=== PATIENT | female | born 1960 | race Caucasian/White ===

== ENCOUNTER → 2017-12-08 08:00 | Outpatient (CLI) | payer OTHER, SELFPAY | PROVIDERS: Family Provider Physician Assistant; PCP Physician Assistant | DX: Z23 Encounter for immunization (principal) | CPT/HCPCS: 90471; 90686 ==

== ENCOUNTER → 2018-12-28 11:13 | Outpatient (CLI) | payer OTHER, SELFPAY | PROVIDERS: PCP Physician Assistant | DX: Z23 Encounter for immunization (principal) | CPT/HCPCS: 90471; 90686 ==

== ENCOUNTER → 2019-03-01 09:16 | Outpatient (CLI) | payer OTHER, SELFPAY ==
--- NOTE | 2019-03-01 | DI.MG.S_ITS ---
BILATERAL DIGITAL SCREENING MAMMOGRAM 3D/2D WITH CAD: 03/01/2019 CLINICAL: Routine screening. Comparison is made to exams dated: 08/31/2014 mammogram and 09/10/2012 mammogram - [facility]. There are scattered fibroglandular elements in both breasts. Current study was also evaluated with a Computer Aided Detection (CAD) system. No significant masses, calcifications, or other findings are seen in either breast. There has been no significant interval change. IMPRESSION: NEGATIVE There is no mammographic evidence of malignancy. A 1 year screening mammogram is recommended. This exam was interpreted at Station ID: [id number]. NOTE: For mammograms, a report in lay terms will be sent to the patient. Approximately 15% of breast malignancies will not be visualized mammographically. In the management of a palpable breast mass, a negative mammogram must not discourage biopsy of a clinically suspicious lesion. Electronically Signed By: Matias beard/dilip:03/01/2019 17:12:24 letter sent: Normal Exam ACR BI-RADS Category 1: Negative [id number]
== END ==
PROVIDERS: PCP Physician Assistant; Visit Provider Physician Assistant
DX: Z12.31 Encounter for screening mammogram for malignant neoplasm of breast (principal)
CPT/HCPCS: 77063; 77067

== ENCOUNTER 2019-05-06 10:35 | Emergency (ER) | payer OTHER, SELFPAY ==
[2019-05-06 10:40] VITALS: BP 167/69; PULSE 66; RESP 13; TEMP 36.6; O2SAT 99
--- NOTE | 2019-05-06 10:48 | DI.RAD.S_ITS ---
PROCEDURE: XR KNEE LT 3V INDICATIONS: pain in left knee TECHNIQUE: 3 views of the knee were acquired. COMPARISON: [facility], , KNEE 3V RIGHT, 08/24/2012, 12:13. FINDINGS: Bones: No fractures or dislocations. No suspicious bony lesions. Mild degenerative changes of the knee are present. Soft tissues: No joint effusion. No suspicious soft tissue calcifications. IMPRESSION: No acute osseous abnormality of the left knee. Dictated by: Timothy Hudson M.D. on 05/06/2019 at 10:37 Approved by: Timothy Hudson M.D. on 05/06/2019 at 10:38
--- NOTE | 2019-05-06 10:59 | ED.LOWEXIN ---
HPI - Extremity Injury (Lower) <JAGRUTI Casey - Last Filed: 05/06/19 22:07> General Chief Complaint: Extremity Injury, Lower Stated Complaint: pain in knee Time Seen by Provider: 05/06/19 10:54 History of Present Illness HPI Narrative: 59yo male presents to the emergency department complaining of left knee pain for the past few days. Patient states 2 weeks ago she felt like her leg was falling asleep, she has had this happen before but it often resolves. This feeling also resolved but then she developed left knee pain. Yesterday she noticed it increased when she walked on her leg. Today the pain was worse yet and she felt a pop. Patient states she has a dull aching 7/10 pain that is located in the back of her knee that is worse with movement and weight-bearing at this time. She has taken Excedrin migraine earlier today. She denies any history of trauma to the area or previous surgeries. Patient denies any history of blood clots, calf pain, shortness of breath, chest pain, nausea, vomiting, diarrhea, or other concerns. Related Data Home Medications Medication Instructions Recorded Confirmed Calcium 500 + D 1 tab PO DAILY #0 12/25/10 05/06/19 meloxicam [Mobic] 15 mg PO QPM #0 12/25/10 05/06/19 propranolol 40 mg PO BID #0 12/25/10 05/06/19 selenium sulfide [Tersi Foam] 1 applic TOPICAL DIRECTED #0 12/25/10 05/06/19 sumatriptan succinate [Imitrex] 50 mg PO PRN PRN #0 12/25/10 05/06/19 nystatin 1 applic TOPICAL DIRECTED 05/06/19 05/06/19 pantoprazole 20 mg PO DAILY 05/06/19 05/06/19 simvastatin 20 mg PO DAILY 05/06/19 05/06/19 Allergies Allergy/AdvReac Type Severity Reaction Status Date / Time morphine Allergy Unknown GLOBAL Verified 03/01/19 09:32 ITCHING Review of Systems <JAGRUTI Casey - Last Filed: 05/06/19 22:07> Review of Systems Narrative: REVIEW OF SYSTEMS: GENERAL: Denies fever or chills. HENT: No head trauma. EYES: No double vision or vision loss. CARDIOVASCULAR: No chest pain or syncope. RESPIRATORY: No shortness of breath or cough. GASTROINTESTINAL: No nausea, vomiting, diarrhea, or constipation. MUSCULOSKELETAL: Complains of left knee pain, see HPI. INTEGUMENTARY: No rash, lesions, or pruritus. NEURO: No numbness, tingling at this time. PSYCH: No behavior or mood changes. Patient History <JAGRUTI Casey - Last Filed: 05/06/19 22:07> Medical History No pertinent past medical history (Acute) Social History Smoking Status: Never smoker Smoking Status: Never smoker Exam <JAGRUTI Casey - Last Filed: 05/06/19 22:07> Initial Vital Signs Initial Vital Signs: Vital Signs Temperature 97.8 F 05/06/19 10:40 Pulse Rate 66 05/06/19 10:40 Respiratory Rate 13 05/06/19 10:40 Blood Pressure 167/69 H 05/06/19 10:40 Pulse Oximetry 99 05/06/19 10:40 PHYSICAL EXAMINATION: GENERAL: Well groomed, alert, and cooperative. Answers questions promptly and appropriately. Vital signs noted. HENT: Normocephalic, atraumatic. EYES: Symmetrical, sclera white, no periorbital swelling. CARDIOVASCULAR: S1 and S2 sounds normal. Regular rate and rhythm, no murmurs, clicks, or bruits. No pedal edema. RESPIRATORY: Normal respiratory rate, trachea midline, airway patent. No stridor, nasal flaring or accessory muscle use. Lungs are clear in all linder. MUSCULOSKELETAL: Minute amount of swelling noted to lower aspect of left knee, no ecchymosis or erythema. Decreased flexion due to pain, full extension. Pain with medial and lateral Naren sign. Negative drawer test. Equal tone and mass bilaterally. EXTREMITIES: CMS intact. Pedal pulses 2+ intact bilaterally. SKIN: Warm, dry, soft, appropriate color for ethnicity. No lesions, rashes, or wounds. NEURO: Alert and Oriented X 3. No sensory deficits. PSYCH: Appropriate affect and mood. <Suzanne Jasso DO - Last Filed: 05/08/19 09:23> Initial Vital Signs Initial Vital Signs: Vital Signs Temperature 97.8 F 05/06/19 10:40 Pulse Rate 66 05/06/19 10:40 Respiratory Rate 13 05/06/19 10:40 Blood Pressure 167/69 H 05/06/19 10:40 Pulse Oximetry 99 05/06/19 10:40 Course <JAGRUTI Casey - Last Filed: 05/06/19 22:07> Course Course Narrative: Patient was given Toradol in the emergency department which decreased pain. She was also given a straight knee immobilizer and crutches to help with knee pain and stabilization. Orders Ordered: Discontinued Medications Ketorolac Tromethamine (Toradol) 30 mg IM NOW ONE Stop: 05/06/19 11:09 Last Admin: 05/06/19 11:27 Dose: 30 mg Documented by: TEODORO Vital Signs Vital signs: Vital Signs - 8 hr 05/06/19 10:40 Temperature 97.8 F Pulse Rate 66 Respiratory Rate 13 Blood Pressure 167/69 H Pulse Oximetry 99 <Suzanne Jasso DO - Last Filed: 05/08/19 09:23> Orders Ordered: Discontinued Medications Ketorolac Tromethamine (Toradol) 30 mg IM NOW ONE Stop: 05/06/19 11:09 Last Admin: 05/06/19 11:27 Dose: 30 mg Documented by: TEODORO Vital Signs Vital signs: Vital Signs - 8 hr 05/06/19 10:40 Temperature 97.8 F Pulse Rate 66 Respiratory Rate 13 Blood Pressure 167/69 H Pulse Oximetry 99 MDM - Extremity Injury (Lower) <JAGRUTI Casey - Last Filed: 05/06/19 22:07> Medical Records Attestation: I reviewed the patient's medical records. Lab Data Attestation: I reviewed the patient's lab results. Imaging Data Extremity x-ray #1: Radiologist's Impression: [address] [address] XRay Report Signed Patient: Elvira Ledezma [facility]#: [id number] : 1960Acct:[id number] Age/Sex: 59 / FDate of Service: 05/06/19 Loc: ED Accession Number: [id number] Procedure: XR knee LT 3V Ordering Provider: Suzanne Jasso D.O. PROCEDURE: XR KNEE LT 3V INDICATIONS: pain in left knee TECHNIQUE: 3 views of the knee were acquired. COMPARISON: [facility], , KNEE 3V RIGHT, 08/24/2012, 12:13. FINDINGS: Bones: No fractures or dislocations. No suspicious bony lesions. Mild degenerative changes of the knee are present. Soft tissues: No joint effusion. No suspicious soft tissue calcifications. IMPRESSION: No acute osseous abnormality of the left knee. Dictated by: Timothy Hudson M.D. on 05/06/2019 at 10:37 Approved by: Timothy Hudson M.D. on 05/06/2019 at 10:38 MDM Narrative Medical decision making narrative: 59-year-old female presenting to the emergency department for left knee pain without trauma or specific incident causing pain. Differential includes most likely meniscus injury due to reports of pain, positive Naren sign, and age, however, differential also includes ligament injury, arthritis, and Less likely fracture due to negative x-ray and less likely bursitis due to lack of swelling. Patient was referred to an orthopedic for further evaluation and testing. She was encouraged to return emergency department for any new or worsening symptoms patient agreed to plan of care verbalized understanding.. Discharge Plan Departure Patient Disposition: Home Clinical Impression: Acute knee pain Qualifiers: Laterality: left Qualified Code(s): M25.562 - Pain in left knee Discharge Date/Time: 05/06/19 12:55 Instructions: DI for Meniscal Tear Activity Restrictions/Additional Instructions: Thank you for entrusting me with your care today. As discussed, your x-rays are negative for any fractures. You were given a brace and crutches to help with immobilization. Please follow-up with orthopedic listed below, call them today to schedule an appointment. I have given you a note for work, you may arrange for light duty if your supervisors allow. Return emergency department for any new or worsening symptoms such as chest pain, shortness of breath, high fevers, or other concerns. Prescriptions: No Action sumatriptan succinate [Imitrex] 50 MG tablet 50 mg PO PRN PRN (Reason: Migraine Headache) Qty: 0 RF: 0 Calcium 500 + D 1 tab PO DAILY Qty: 0 RF: 0 meloxicam [Mobic] 15 MG tablet 15 mg PO QPM Qty: 0 RF: 0 propranolol 40 mg Tablet 40 mg PO BID Qty: 0 RF: 0 Tersi Foam 2.25 % Foam 1 applic topical DIRECTED Qty: 0 RF: 0 pantoprazole 20 mg Tablet,Delayed Release (Dr/Ec) 20 mg PO DAILY RF: 0 simvastatin 20 mg Tablet 20 mg PO DAILY RF: 0 nystatin 100,000 unit/gram Powder 1 applic TOPICAL DIRECTED RF: 0 Referrals: Anabel Santizo PA-C [Primary Care Provider] - Fady Seay MD [Physician] - (Left knee pain with wt bearing, negative x-ray, evaluate and treat for causes.) Stand Alone Forms: Work Release Note
[2019-05-06] MEDS: KETOROLAC 60 MG/2 ML VIAL 30 MG IM (11:27)
[2019-05-06 12:55] VITALS: BP 125/61; PULSE 56; RESP 18; O2SAT 98
== END 2019-05-06 12:55 | disposition home or self-care (01) ==
PROVIDERS: Emergency Provider Nurse Practitioner; PCP Physician Assistant
DX: M25.562 Pain in left knee (principal)
CPT/HCPCS: 73562; 96372; 99283; 99284; J1885

== ENCOUNTER → 2019-05-26 18:30 | Outpatient (CLI) | payer OTHER, SELFPAY ==
--- NOTE | 2019-05-26 18:31 | DI.MRI.S_ITS ---
PROCEDURE: MR KNEE LT WO CON INDICATIONS: INTERNAL DERANGMENT OF LEFT KNEE TECHNIQUE: Noncontrast sagittal PD fast spin echo and T2 fast spin echo with fat saturation, sagittal 3-D FLASH with fat saturation; coronal T1 spin echo and PD fast spin echo with fat saturation, and axial PD fast spin echo with fat saturation through the knee. COMPARISON: None. FINDINGS: Image quality: Excellent. Menisci: Ill-defined tear of the medial meniscal body, with complete extrusion, also extending to the undersurface of the posterior horn Lateral meniscus intact. Cruciate ligaments: Anterior cruciate ligament appears intact. Posterior cruciate ligament appears intact. Medial structures: There is medial bowing of the medial collateral ligament, with mild internal signal changes and no complete rupture. There is adjacent soft tissue edema. The appearance could reflect reactive changes to medial compartment pathology, versus low-grade sprain of the MCL. Pes anserinus tendons appear intact although there is adjacent edema/fluid raising the possibility of early or developing bursitis Mild semimembranosus insertional tendinopathy. Lateral structures: The lateral collateral ligament intact. Biceps femoris tendon appears intact. Popliteus tendon grossly unremarkable. Iliotibial band appears intact. Anterior structures: Quadriceps tendon intact. Medial and lateral patellofemoral ligaments intact. There is mild patellar tendinopathy. Prepatellar and superficial infrapatellar subcutaneous edema/fluid. Bones and cartilage: No focal marrow contusion or discrete low signal fracture line. Within the medial compartment, mild surface fraying of the femoral and tibial articular cartilage Within the lateral compartment, diffuse mild partial-thickness loss of the femoral cartilage. The tibial cartilage appears grossly intact. Within the patellofemoral compartment, diffuse partial-thickness loss of the patellar and femoral trochlear articular cartilage. There is subchondral marrow edema and cystic change. Joint space: No joint effusion. No formed Harrison's cyst. No specific evidence of intra-articular loose body. IMPRESSION: Macerated, ill-defined medial meniscal tear involving the body and posterior horn with complete extrusion Possible developing pes anserinus bursitis versus acute strain. Age-indeterminate mild semimembranosus insertional tendinopathy Mild patellar tendinopathy Degenerative joint disease as above Moderate joint effusion Dictated by: Chung Grayson M.D. on 05/27/2019 at 10:00 Approved by: Chung Grayson M.D. on 05/27/2019 at 10:09
== END ==
PROVIDERS: PCP Physician Assistant; Referring Provider Orthopaedic Surgery; Visit Provider Orthopaedic Surgery
DX: S83.242A Other tear of medial meniscus, current injury, left knee, initial encounter (principal); M17.12 Unilateral primary osteoarthritis, left knee; M25.462 Effusion, left knee; M67.962 Unspecified disorder of synovium and tendon, left lower leg
CPT/HCPCS: 73721

== ENCOUNTER → 2020-01-03 18:36 | Outpatient (CLI) | payer OTHER, SELFPAY | PROVIDERS: PCP Physician Assistant; Referring Provider Internal Medicine; Visit Provider Internal Medicine | DX: Z23 Encounter for immunization (principal) | CPT/HCPCS: 90471; 90686 ==

== ENCOUNTER → 2020-06-28 07:41 | Outpatient (CLI) | payer OTHER, SELFPAY ==
[2020-06-28 08:06] LABS: Add Manual Diff / Slide Review NO; Basophils Absolute Auto 100 /uL (0-100); Eosinophils Absolute Auto 200 /uL (0-450); Eosinophils Percent Auto 2.4 % (2-4); Hematocrit 42.2 % (36-46); Hemoglobin 14.1 g/dL (12.0-16.0); Lymphocytes Absolute Auto 2300 /uL (1100-4500); Lymphocytes Percent Auto 30.5 % (25-40); Mean Corpuscular HGB Conc 33.3 % (30-36); Mean Corpuscular Hemoglobin 30.2 PG (26-34); Mean Corpuscular Volume 90.8 fL (80-100); Monocytes Absolute Auto 600 /uL (0-900); Monocytes Percent Auto 8.1 % (3-14); Neutrophils Absolute Auto 4300 /uL (1500-7000); Platelet Count 202 X10^3/uL (150-400); Red Blood Cell Count 4.65 X10^6/uL (4.0-5.2); Red Cell Distribution Width 12.9 % (11.6-14.8); White Blood Cell Count 7.4 X10^3/uL (4.5-11.0)
[2020-06-28 08:41] LABS: BUN Creatinine Ratio 29.6 (6-22); Blood Urea Nitrogen 24 mg/dL (7-17); Calcium 9.5 mg/dL (8.4-10.2); Carbon Dioxide 28 mmol/L (22-32); Chloride 106 mmol/L (98-107); Estimated Glomerular Filt Rate > 60.0 mL/min (>60); Glucose 178 mg/dL (80-110); HEMOLYSIS < 15 (0-50); Potassium 4.4 mmol/L (3.4-5.1); Sodium 140 mmol/L (137-145)
== END ==
PROVIDERS: PCP Physician Assistant; Referring Provider Orthopaedic Surgery Adult Reconstructive Orthopaedic Surgery; Visit Provider Orthopaedic Surgery Adult Reconstructive Orthopaedic Surgery
DX: Z01.818 Encounter for other preprocedural examination (principal); Z01.812 Encounter for preprocedural laboratory examination; R73.9 Hyperglycemia, unspecified
CPT/HCPCS: 36415; 80048; 83036; 85025; 93005

== ENCOUNTER → 2020-07-30 09:12 | Outpatient (CLI) | payer OTHER, SELFPAY ==
[2020-07-30 11:32] LABS: COVID19 -Nasal RAPID Negative (Negative)
== END ==
PROVIDERS: Family Provider Physician Assistant; PCP Physician Assistant; Visit Provider Student in an Organized Health Care Education/Training Program
DX: Z01.812 Encounter for preprocedural laboratory examination (principal); Z20.822 Contact with and (suspected) exposure to COVID-19
CPT/HCPCS: 87635

== ENCOUNTER 2020-08-01 07:23 | Day surgery (SDC) | payer OTHER, SELFPAY ==
[2020-07-25 10:30] VITALS: BMI 41.8
[2020-08-01] VITALS (11 sets, daily range): BP systolic 100–144; BP diastolic 52–88; PULSE 54–77; RESP 12–98; TEMP 36.1–36.7; O2SAT 10–100; BMI 41.5
[2020-08-01] MEDS: LACTATED RINGERS 1,000 ML 100 ML IV ×3 (08:29→14:02)
--- NOTE | 2020-08-01 08:32 | SUR.PREOP ---
0840 - Dr Zeng at bedside preparing for left adductor canal block. Monitoring initiated and maintained throughout procedure. Pt placed on 2L NC per orders. Medications given by Dr Zeng. 0842 - Time out performed. 0851 - Injection time. 0851 - Block complete. Patient remained stable throughout procedure. No adverse reactions noted.
--- NOTE | 2020-08-01 08:48 | DI.RAD.S_ITS ---
PROCEDURE: XR KNEE LT 1TO2V INDICATIONS: POST OPERATIVE LEFT KNEE TECHNIQUE: 2 view(s) of the knee acquired. COMPARISON: [facility], CR, XR KNEE 4+ VIEWS LEFT, 05/02/2020, 15:34. [facility], CR, XR KNEE LT 3V, 05/06/2019, 10:48. [facility], MR, MR KNEE LT WO CON, 05/26/2019, 19:12. FINDINGS: Bones: Patient is status post knee joint arthroplasty. Hardware components are in expected positions. Visualized bony structures are intact. Soft tissues: Overlying postoperative changes are noted. IMPRESSION: Left hip arthroplasty with prosthesis in anatomic alignment Dictated by: Lilia Ram M.D. on 08/01/2020 at 11:14 Approved by: Lilia Ram M.D. on 08/01/2020 at 11:15
--- NOTE | 2020-08-01 08:51 | PM.PREOP ---
Pre-operative Note COVID-19 COVID-19 status: Negative Result date/Date tested (Pos, Neg/Pending): 07/30/20 Interval Note History & Physical reviewed/Exam performed by Physician: Yes Changes to H&P: No H&P completed within 30 days and has changed as indicated here:: Plan for left TKA
[2020-08-01] MEDS: TRANEXAMIC ACID 1,000 MG VIAL 2000 MG INJ ×2 (09:05→10:21)
[2020-08-01] MEDS: CEFAZOLIN 2 GM/100 ML FROZ.PIGGY IV ×2 (09:22→16:30)
--- NOTE | 2020-08-01 09:25 | SUR.OPER ---
Supine on padded OR bed. Pillow under head, arms secured on padded armboards <90 degree abduction. Safety belt across torso. Non-operative leg secured with tape over blanket over lower leg. Operative leg on padded foam roller under control of surgeon. Foam padded brace at thigh of operative leg.
--- NOTE | 2020-08-01 09:31 | PM.PROC.1 ---
Procedures Date/Time Date of procedure: 08/01/20 Time of procedure: 07:40 General Procedure description: Ultrasound guided adductor canal nerve block for post op pain control after left total knee arthroplasty by Dr. Seay. Risk and benefits of procedure discussed with patient. ASA monitoring applied to patient. O2 given via nasal cannula. 1 mg Versed and 50 mcg fentanyl given for procedural sedation. Skin site was prepped with chlorhexidine and allowed to fully dry. Sterile gloves, mask, hat and probe cover were used to maintain sterility. 2% lidocaine and 30ga needle was used to make a small skin wheal at needle insertion site. Under ultrasound guidance, a 21ga 100mm Pajunk needle was directed into the adductor canal near femoral artery and saphenous nerve at the level of mid thigh. Patient reported no parasthesias. After negative aspiration, 20 mL 0.5% ropivicaine and 10mg dexamethasone were injected around saphenous nerve. Patient tolerated procedure well.
[2020-08-01] MEDS: ROPIVACAINE 0.5% PF 5 MG/ML 20ML VIAL 60 ML INJ (09:36)
[2020-08-01] MEDS: KETOROLAC 30 MG/ML VIAL IV (09:37)
[2020-08-01] MEDS: MORPHINE 4 MG/ML INJ INJ (09:37)
[2020-08-01] MEDS: SODIUM CHLORIDE IRRIG SOLUTION 250 ML, POVIDONE-IODINE SPONGE STICKS 1 APPLIC IRR (10:20)
--- NOTE | 2020-08-01 10:49 | PM.OP.1 ---
Operative Date/Time/Diagnoses Date of procedure: 08/01/20 Time of procedure: 10:49 Pre-op diagnosis: left knee OA Post-op diagnosis: same Procedure & Clinicians Procedure: Left TKA Same procedure as scheduled: Yes Indications: Left knee osteoarthritis resistant to further conservative measures Surgeon: Fady Seay Pack Worker Supervisor: Darin Lazaro Anesthesia Type: General and Spinal Operative Notes Findings: Varus alignment of left knee with advanced osteoarthritis resistant to further conservative measures. Closure Type: primary Specimen(s): none sent Prosthetic devices, grafts, tissues, transplants, or devices: Barrera and nephew Journey 2 CR Oxinium femur size 5 left Journey tibial base plate size 4 left Size 3-4 left 10 mm thick Journey 2 CR polyethylene 32 mm oval Bobbi 2 patellar button Estimated Blood Loss (mL): 100 Blood products transfused: none Tourniquet time (min): 50 Procedure in detail: Patient was met in the preoperative holding area where the site and side of surgery marked by . Informed consent had been signed and reviewed in clinic was also reviewed the preoperative holding area and all last minute questions were answered. Patient was then brought back into the operating room where she received a spinal anesthetic a nonsterile tourniquet was then placed on the left thigh and she was induced under general anesthesia. The left lower extremity then prepped and draped in normal sterile fashion. A surgical time-out was performed verifying site and side of surgery as well as the name of the patient. An Esmarch was then used to exsanguinate the left lower extremity and the tourniquet was inflated 250 mmHg. A longitudinal incision over the anterior aspect the knee was made in the skin using 10. Blade. A new 10. Blade was then used to elevate medial lateral flaps. The medial parapatellar arthrotomy was then marked and made with 10. Blade. Hoffa's fat pad was then removed and medial peel was then performed. The lateral meniscus was then removed as well as the ACL. Perkinston's line was then marked using electrocautery and the entry point for the femoral and tibial drill was then made. At drill was then used into the femoral canal and tibial canal respectively. Intramedullary len was then placed inside the femur and a 5 degree cut was then made for the left knee in the neutral slot. The jig and the intramedullary len were removed the intramedullary len was then placed inside the tibia and the out control panel assembler was then used for the tibial cutting jig. This was provisionally pinned in place and then confirmed varus valgus alignment as well as slope with a drop len. The 3rd locking pin was then placed. The tibial cut was then made. Medial meniscus was removed along with the tibial cut. The knee was then brought into full extension 9 mm extension block fit in the extension space. At this point the pins were then removed from the femur and tibia. Knee was brought into flexion and the gap neon light installer was then used this was then marked and then the gap neon light installer was removed and the Sizer was then placed. The Sizer sized a size the femur to a size 5. A size 5 cutting block was then placed and all 5 cuts were then made. It was noted that the anterior cut was close to notching however does not notch the cortex. A size 5 CR trial component was then placed and the notch cut was then made. A size 4 tibial base plate with a 9 mm thick polyethylene was then placed the knee was brought through range of motion there is slight asymmetry in varus valgus laxity I decided to do more of a medial peel and she had overall varus alignment prior to surgery. This corrected this inbalance. The knee was brought through flexion range of motion as well as the PCL was not overly tight. The patella was then freehand cut and a sized to 32 mm patellar button. This was then drilled for the patellar button was then placed the knee was brought through range of motion with excellent patellar tracking. At this point the tibial base plate rotation was marked using a floating technique and then the trial components removed. The tibial base plate was then placed back onto the tibia and pinned in place and then drilled and punched. Bony fragments were then placed inside the tibial canal as well as the drill hole for the femur. Local anesthetic was infiltrated into the posterior aspect of the knee the cut surfaces of the femur tibia and patella were then pulse lavaged with normal saline. Cement was then mixed. Cement was then finger packed into the keel hole as well as the cut surface of the tibia cement was also placed on the undersurface of the tibial base plate this was then malleted into place and excess cement was removed. Insert was then finger packed onto the cut surface of the femur with the exception of the posterior condylar cut set was placed on the feet of the femoral component this was malleted into place as well and excess cement was removed a size 9 mm thick polyethylene was then placed in the knee was brought into full extension ankle was held in internal rotation some was then placed onto the cut surface of the patella and between the pegs of the patellar button and clamped in place excess cement was removed. Betadine solution was then placed into the knee the tourniquet was let down. After several minutes the Betadine solution was pulse lavaged with copious normal saline. The cement was allowed to fully cure prior to manipulating the knee. Once the cement was fully cured I removed the size 9 polyethylene and upsized to a size 10 which had improved varus valgus stability in full extension as well as having excellent flexion range of motion. 10 mm thick polyethylene was then placed making sure the medial and lateral tabs were well engaged. The medial parapatellar arthrotomy was then closed using interrupted 1. Vicryl followed by running Quill suture followed by 2 Vicryl in the subcutaneous layer followed by a 3-0 running Stratafix and Dermabond as well as an Aquacel dressing Complications: none Post-operative Condition: stable Disposition: PACU Plan for aftercare: WBAT LLE, 24 hours post-op abx, ASA 81mg BID for DVT prophylaxis
--- NOTE | 2020-08-01 14:25 | PT.IIE ---
Current Diagnoses Unilateral primary osteoarthritis, left knee (08/01/20) Surgery Performed Operation Date: 08/01/20 08:45 Actual Procedures p Total Knee Arthroplasty(Left) - Fady Seay MD Surgical History (Last Updated 07/25/20 @ 11:09 by Rika Somers RN) History of bilateral carpal tunnel release History of cholecystectomy History of esophagogastroduodenoscopy (EGD) History of hysterectomy Medical History (Last Updated 07/25/20 @ 11:09 by Rika Somers RN) No pertinent past medical history Osteoarthritis Stomach ulcer Yeast infection Physical Therapy Inpatient Evaluation/Re-Eval M1 PT/OT-IP Prior Functional Status Start: 08/01/20 15:49 Freq: NEEDED Status: Active Protocol: Document 08/01/20 14:25 AB (Rec: 08/01/20 16:10 AB [email or web address]) Medical Review Prior Functional Status Medical History Reviewed Yes Communication able to make needs known Mobility and Gait pt stated that she is independent with all mobilities and ambulation without AD Social History Household Members spouse Living Arrangements House Number of Floors (Floors) One Floor Number of Stairs To Enter/Railing? 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 M2 PT-IP Current Condition Start: 08/01/20 15:49 Freq: NEEDED Status: Active Protocol: Document 08/01/20 14:25 AB (Rec: 08/01/20 16:10 AB [email or web address]) Physical Therapy Current Condition Current Condition Evaluation Date 08/01/20 Treatment Diagnosis s/p L TKA; difficulty in walking Onset Date 08/01/20 Weight Bearing Status Weight Bearing Status Weight Bear as Tolerated Allowed Weight Bearing Amount (enter % LLE WBAT or #) (%) M3 PT-IP Subjective Start: 08/01/20 15:49 Freq: NEEDED Status: Active Protocol: Document 08/01/20 14:25 AB (Rec: 08/01/20 16:10 AB [email or web address]) Subjective Physical Therapy Visit Type Type Initial Evaluation Visit Start Time 14:25 Visit Stop Time 15:20 Total Visit Minutes 55 Number of DISTILLATION OPERATOR Visits 0 Physical Therapy Visit Comments Patient Comments pt is agreeable to do PT Therapy Pain Assessment Pain When Pain Assessed During Mobility Pain Present Pain Present Pain Reported Location Left Knee Intensity 6 Scale Used Numeric (0 - 10) Pain Management Techniques Apply Cold,Elevation, Modification of Treatment,Re- positioning,Timing of Activity with Medications M4 PT-IP Mobility and Gait Start: 08/01/20 15:49 Freq: NEEDED Status: Active Protocol: Document 08/01/20 14:25 AB (Rec: 08/01/20 16:10 AB [id number]) PT-Bed Mobility Assessment Supine to Sit Supine to Sit Standby Assistance,Head of Bed Elevated Sit to Supine Sit to Supine Minimal Assistance PT-Transfer Assessment Sit to and From Stand Sit to and from Stand Moderate Assistance,1 Person Assistance Equipment Transfer Assistive Device Gait Belt,Front Wheeled Walker Orthotic/Prosthetic Devices or Brace: No Transfers Transfer Destination Bedside Commode Transfer Technique Stand Step Pivot Transfer Ability Level of Assist Moderate Assistance,1 Person Assistance,Use of Upper Extremities Comments Mobility Comments stated that sensation on BLE are ok but just slight tingling on L upper thigh but pt able to flex L knee. BP in supine: 107/65. completed supine to sit SBA with HOB elevated. pt was able to sit on EOB SBA. BP in sittin /66. no complaints of dizziness/lightheadedness. pt stated that she still has numbness on her buttocks. pt needs to be cleaned up and bed sheets changed. positioned bedside commode next to the bed. pt completed sit to stand mod A and cues and completed step transfer to the commode mod A and cues. assisted pt with hygiene care, brief management, gown change sock change. completed sit to stand from bedside commode mod A and cues. required mod A to maintain standing balance using FWW for support while nurse assists with hygiene care and brief management. pt requested to go back to bed and completed step transfer using FWW mod A and cues. slight L knee buckling noted and cued for quad sets. completed sit to supine min A for LLE elevation. positioned pt in bed. call light and table placed within reach. informed pt regarding getting a tub transfer bench. spouse in room with pt. PT-Balance Assessment Sitting Balance and Reactions Static Sitting Balance Ability Good Dynamic Sitting Balance Ability Good Standing Balance and Reactions Static Standing Balance Ability Fair Dynamic Standing Balance Ability Poor Device Used FWW M5 PT-IP Objective Assessments Start: 08/01/20 15:49 Freq: NEEDED Status: Active Protocol: Document 08/01/20 14:25 AB (Rec: 08/01/20 16:10 [email or web address]) Orientation Orientation/Cognition Level of Alertness Alert Orientation Name,Place,Situation Safety Awareness Decreased Safety Awareness Gross Range of Motion Lower Extremity ROM Assessment Left Impaired Impairments L knee flexion: ~ 40 deg with increase guarding with movement Strength Lower Extremity Strength Assessment Left Impaired Hip 4-/5 Knee 3+/5 Sensation Assessment Sensation Sensation Description Numbness Comments Sensation Comments c/o buttocks numbness and upper thigh slight numbness Muscle Tone Muscle Tone WNL Yes M6 PT-IP Treatment Start: 08/01/20 15:49 Freq: NEEDED Status: Active Protocol: Document 08/01/20 14:25 AB (Rec: 08/01/20 16:10 [email or web address]) Physical Therapy Treatment Exercises Exercises Heel Slides Education Education Provided Precautions,Weight Bearing Status,Post-Op Packet,Safety M7 PT-IP Assessment and Plan Start: 08/01/20 15:49 Freq: NEEDED Status: Active Protocol: Document 08/01/20 14:25 AB (Rec: 08/01/20 16:10 [email or web address]) PT Summary Assessment and Plan Potential Rehabilitation Potential Good Status of Condition at Evaluation Evolving Summary Impairments Pain,ROM,Strength,Balance, Coordination,Sensation, Cognition,Bed Mobility, Transfers,Gait,Activity Tolerance Assessment Summary pt s/p L TKA POD 0. pt still has slight numbness on L thigh and buttocks affecting mobility. pt was able to transfer to the bedside commode using FWW but required mod A and unable to ambulate at this time. will continue to assess progress. pt plans to go home and spouse to assist her as needed. will conduct caregiver training when appropriate. Goals Bed Mobility Goal Independent Transfer Goal Independent,Front Wheeled Walker Gait Goal Independent,Front Wheel Walker Gait Distance 150 Days to Meet Goals 5 Frequency of Treatment Frequency Of Treatment Twice a Day Treatment Plan Physical Therapy Treatment Plan Bed Mobility Training,Transfer Training,Gait Training, Therapeutic Exercise,Balance Retraining,Post Op Education, Discharge Planning,Hot or Cold Pack,Neuromuscular Re-ed, Coordination Retraining,Manual Therapy Precautions Other Precautions LLE WBAT Recommendations To Nursing Amount of Assist Needed 1 Person Assist Discharge Recommendations PT Discharge Recommendations Home with Assistance, Outpatient PT Transportation Needs at Discharge Private Vehicle
[2020-08-01] MEDS: IBUPROFEN 400 MG TABLET PO ×3 (14:50→21:04)
[2020-08-01] MEDS: OXYCODONE IR 5 MG TABLET PO (14:50)
--- NOTE | 2020-08-01 15:19 | PC.ADMIT ---
Addendum entered by Chantel Priest R.N. 08/01/20 15:27: Spouse at bedside, Pt able to get up at bedside to BSC, incont of urine, spinal has not allowed full return of bladdder sensation. PT at bedside for transfer and assessment with mobility. Pt is cooperative with all care and education provided for poc. Weaned to RA. CTA, no nausea reported at present. Original Note: [email or web address] Admission Note:Arrived from PACU, drowsy. Weaned off 3L to RA. Able to get up to BSC. The patient,Elvira Ledezma,60 y/o, was given written information regarding hospital policies, unit procedures and contact persons. Patient's smoking status: Never smoker. Vital Signs - 8 hr 08/01/20 08:20 08/01/20 10:58 08/01/20 11:03 Temperature 98.1 F 97.5 F L Pulse Rate 77 75 68 Respiratory Rate 16 12 12 Blood Pressure 144/88 H 100/52 L 107/66 Pulse Oximetry 97 98 98 08/01/20 11:08 08/01/20 11:13 08/01/20 11:18 Temperature 97 F L Pulse Rate 62 63 62 Respiratory Rate 98 H 12 12 Blood Pressure 101/61 106/63 101/68 Pulse Oximetry 10 L 98 99 08/01/20 11:30 08/01/20 11:45 08/01/20 12:00 Temperature 97.1 F L 97.2 F L 97.2 F L Pulse Rate 62 55 L 54 L Respiratory Rate 12 13 13 Blood Pressure 105/65 111/71 111/73 Pulse Oximetry 99 100 100 08/01/20 12:30 Temperature 97.0 F L Pulse Rate 54 L Respiratory Rate 15 Blood Pressure 113/68 Pulse Oximetry 100
[2020-08-01] MEDS: OXYCODONE IR 10 MG TABLET PO (20:56)
[2020-08-01] MEDS: DOCUSATE 100 MG CAPSULE PO (21:02)
[2020-08-01] MEDS: ACETAMINOPHEN 325 MG TABLET 650 MG PO (21:03)
[2020-08-01] MEDS: ASPIRIN EC 81 MG TABLET PO (21:04)
[2020-08-01] MEDS: PROPRANOLOL 40 MG TABLET PO (21:04)
[2020-08-02 00:26] VITALS: BP 113/65; PULSE 80; RESP 16; TEMP 36.2; O2SAT 97
[2020-08-02] MEDS: CEFAZOLIN 2 GM/100 ML FROZ.PIGGY IV (01:15)
[2020-08-02] MEDS: IBUPROFEN 400 MG TABLET PO ×2 (01:15→04:54)
[2020-08-02] MEDS: LACTATED RINGERS 1,000 ML 100 ML IV (01:19)
[2020-08-02] MEDS: OXYCODONE IR 5 MG TABLET PO ×3 (04:54→10:20)
[2020-08-02 05:15] VITALS: BP 111/64; PULSE 95; RESP 16; TEMP 36.1; O2SAT 93
[2020-08-02 05:22] LABS: Hematocrit 37.1 % (36-46); Hemoglobin 12.4 g/dL (12.0-16.0)
[2020-08-02] MEDS: PANTOPRAZOLE DR 20 MG TABLET PO (06:21)
[2020-08-02 08:00] VITALS: BP 110/72; PULSE 52; RESP 14; TEMP 36.1; O2SAT 97
[2020-08-02] MEDS: ASPIRIN EC 81 MG TABLET PO (08:42)
[2020-08-02] MEDS: ACETAMINOPHEN 325 MG TABLET 650 MG PO (08:42)
--- NOTE | 2020-08-02 08:50 | PM.PNPO.1 ---
Subjective Subjective Date Patient Seen: 08/02/20 Time Patient Seen: 08:50 Interval history: Patient states she is doing well and is in minimal discomfort. At this time she denies fever, chills, nausea, shortness of breath, chest pain or urinary retention. She reports good sensation throughout the bilateral lower extremities to light touch. She reports that she is eager to continue working with physical therapy and is looking forward to discharge possibly today. Exam Vital Signs (past 8 hours): - 08/02/20 05:15 08/02/20 08:00 Temperature 97.0 F L 97.0 F L Pulse Rate 95 H 52 L Respiratory Rate 16 14 Blood Pressure 111/64 110/72 Pulse Oximetry 93 97 Oxygen Delivery Method Room Air Oxygen Flow Rate 0 Narrative Exam Narrative: 60-year-old female postop day 1 status post left total knee arthroplasty. Patient is resting comfortably in bed, is in no acute distress, is alert and oriented x3. Skin is warm and dry, and the skin surrounding the incision site is free of erythema, warmth, induration, or discharge. Flexion performed bilaterally without difficulty or discharge right greater than left. Ankle inversion, eversion, plantar flexion, dorsiflexion performed bilaterally without difficulty or discomfort. Calves are soft and nontender, negative Homans sign. Dressing over the incision site is free of strike through. Palpable pulses appreciated, capillary refill less than 2 seconds. No other signs of DVT appreciated. Resp Effort & Inspection: normal respiratory effort and able to speak in complete sentences Skin General: no rashes or lesions noted Objective Labs Result Diagrams: 08/02/20 04:43 Labs: Laboratory Results - last 24 hr 08/02/20 04:43 Hgb 12.4 Hct 37.1 PFSH Medical History No pertinent past medical history Osteoarthritis Stomach ulcer Yeast infection Surgical History History of bilateral carpal tunnel release History of cholecystectomy History of esophagogastroduodenoscopy (EGD) History of hysterectomy Social History household members: spouse Smoking Status: Never smoker alcohol intake: current Assessment & Plan Post-op Postoperative Procedures: Procedures Operation Date: 08/01/20 08:45 Actual Procedures Side Surgeon p Total Knee Arthroplasty Left Fady Seay MD Postoperative day: 1 Postoperative status: doing well Postoperative plan: ambulate Postoperative plan narrative: Patient is to continue working on ambulation with physical therapy. Patient is to remain weight-bearing as tolerated with use of a front wheeled walker. The patient is to continue her current pain control regimen as it is adequately managing her pain level. Aspirin 81 mg b.i.d. is to be continued for 6 weeks for DVT prophylaxis. Time Spent With Patient Time with patient: 15-24 minutes Quality VTE Deep Vein Thrombosis/Pulmonary Embolism Present on Admission: No
--- NOTE | 2020-08-02 09:25 | PM.DS.1 ---
History of Present Illness History of Present Illness Date Patient Seen: 08/02/20 Time Patient Seen: 09:25 Chief complaint: Left Total Knee Arthroplasty Narrative: Refer to previous H PI Discharge Providers Provider Discharge Date: 08/02/20 Primary care physician: Anabel Santizo PA-C Consults: 08/01/20 08:41 Consult to Anesthesiology Routine Comment: Consulting Provider: Anesthesiologist Reason for consultation: Regional block for post operative pain control 08/01/20 11:58 Consult to Discharge Planning Routine Comment: Consult to Physical Therapy Evaluate & Treat Comment: Physician Instructions: postop TKA protocol Consult to Respiratory Therapy Evaluate & Treat Comment: Physician Instructions: Evaluate and treat Discharge provider: Mike Cooper PA-C Summary Hospital Course Discharge Diagnosis: Left knee osteoarthritis Status post left total knee arthroplasty Hospital Course: Patient was admitted to the hospital following the above-listed procedure for the above-listed diagnosis. Following the procedure the patient has been convalescing appropriately and her pain has been controlled with the current pain management regimen. Patient successfully work on ambulation and stair Young with physical therapy. Throughout the course of her stay in the hospital the patient has denied fever, chills, nausea, chest pain, shortness of breath, or urinary retention. Status at Discharge Cognitive/behavioral status at discharge: oriented Functional status at discharge: uses cane/walker Overall status at discharge: patient is progressing back to baseline Exam Vital Signs (past 8 hours): - 08/02/20 05:15 08/02/20 08:00 Temperature 97.0 F L 97.0 F L Pulse Rate 95 H 52 L Respiratory Rate 16 14 Blood Pressure 111/64 110/72 Pulse Oximetry 93 97 Oxygen Delivery Method Room Air Oxygen Flow Rate 0 Narrative Exam Narrative: 60-year-old female postoperative day 1 status post left total knee arthroplasty. Patient is resting comfortably in bed, is in no acute distress, is alert and oriented x3. Skin is warm dry, and the skin surrounding the incision site is free of erythema, warmth, induration, or discharge. Hip flexion performed bilaterally without difficulty or discomfort, right greater than left. Ankle inversion, eversion, dorsiflexion, plantar flexion performed bilaterally without difficulty or discomfort. Calves are soft and nontender, negative Homans sign. Dressing over the incision site is free of strike through. Capillary refill less than 2 seconds, palpable pulses appreciated. No other signs of DVT appreciated. Resp Effort & Inspection: normal respiratory effort and able to speak in complete sentences Skin General: no rashes or lesions noted Objective Labs Result Diagrams: 08/02/20 04:43 Labs: Laboratory Results - last 24 hr 08/02/20 04:43 Hgb 12.4 Hct 37.1 [facility] Medical History No pertinent past medical history Osteoarthritis Stomach ulcer Yeast infection Surgical History History of bilateral carpal tunnel release History of cholecystectomy History of esophagogastroduodenoscopy (EGD) History of hysterectomy Social History household members: spouse Smoking Status: Never smoker alcohol intake: current Discharge Assessment & Plan Assessment and Plan Assessment: Patient is doing well. Plan of Treatment: Patient is to continue outpatient physical therapy following discharge from the hospital. First postoperative visit is scheduled for 2 weeks following discharge from the hospital. Dressing is to remain intact over the incision site until the 1st postoperative visit. Patient is to continue current pain management regimen as is current with controlling the patient's pain level adequately. Aspirin 81 mg b.i.d. is to be continued for 6 weeks for DVT prophylaxis. Patient has been instructed to contact clinic with any concerns or questions. Any increased redness, warmth, pain, or discharge surrounding the incision site should be reported to the clinic. Total knee replacement protocol. Discharge Plan Discharge Plan Patient Disposition: Home Provider Discharge Comment: Patient cleared for discharge pending PT approval. Discharge orders & Medications Discharge Orders: Discharge (Order); Ordered 08/02/20 Ordered By: Mike Cooper Prescriptions: New acetaminophen 325 mg Tablet 650 mg PO TID Qty: 90 RF: 0 aspirin 81 mg Tablet,Delayed Release (Dr/Ec) 81 mg PO BID Qty: 90 RF: 0 ibuprofen 400 mg Tablet 400 mg PO Q4HR Qty: 90 RF: 0 oxycodone 10 mg Tablet 10 mg PO Q3HR PRN (Reason: Pain, Severe (7-10)) Qty: 42 RF: 0 Continued meloxicam [Mobic] 15 MG tablet 15 mg PO QPM Qty: 0 RF: 0 propranolol 40 mg Tablet 40 mg PO BEDTIME Qty: 0 RF: 0 pantoprazole 20 mg Tablet,Delayed Release (Dr/Ec) 20 mg PO DAILY RF: 0 simvastatin 20 mg Tablet 20 mg PO DAILY RF: 0 nystatin 100,000 unit/gram Powder 1 applic TOPICAL DIRECTED RF: 0 Excedrin Migraine 250-250-65 mg Tablet 2 tab PO Q6H PRN (Reason: Migraine Headache) RF: 0 Follow up/Referrals: Anabel Santizo PA-C [Primary Care Provider] - Diet/Activity/Treatments Diet: Diet as Tolerated Activity: Weight-bearing as tolerated. Total knee replacement protocol. Skin/Wound/Dressing Care Skin care: Refrain from placing topical ointments over the incision site. Report to your healthcare provider any signs of infection, such as:: chills, fever, night sweats, increased pain, unusual drainage and unusual redness Dressing: Dressing is to remain intact until 1st postoperative visit. Contact the clinic if the dressing is to become saturated, destroyed, or removed. Visit Report/Discharge Packet Instructions: DI for Knee Replacement Stand Alone Forms: Surgery Discharge Discharge Data Primary Care Provider: Anabel Santizo Attending Provider: Fady Seay VTE Deep Vein Thrombosis/Pulmonary Embolism Present on Admission: No
--- NOTE | 2020-08-02 10:03 | PT.IPTN ---
Current Diagnoses Unilateral primary osteoarthritis, left knee (08/01/20) Surgery Performed Operation Date: 08/01/20 08:45 Actual Procedures p Total Knee Arthroplasty(Left) - Fady Seay MD Physical Therapy Treatment Note M2 PT-IP Current Condition Start: 08/01/20 15:49 Freq: NEEDED Status: Active Protocol: Document 08/01/20 14:25 AB (Rec: 08/01/20 16:10 AB [id number]) Physical Therapy Current Condition Current Condition Evaluation Date 08/01/20 Treatment Diagnosis s/p L TKA; difficulty in walking Onset Date 08/01/20 Weight Bearing Status Weight Bearing Status Weight Bear as Tolerated Allowed Weight Bearing Amount (enter % LLE WBAT or #) (%) M3 PT-IP Subjective Start: 08/01/20 15:49 Freq: NEEDED Status: Active Protocol: Document 08/02/20 09:47 CLB (Rec: 08/02/20 10:14 CLB [id number]) Subjective Physical Therapy Visit Type Type Treatment Note Visit Start Time 09:47 Visit Stop Time 10:03 Total Visit Minutes 16 Notes Pt presesnt Number of CHILD WELFARE COUNSELOR Visits 1 Physical Therapy Visit Comments Patient Comments I'm ready to go home now Therapy Pain Assessment Pain When Pain Assessed During Mobility Pain Present Pain Present Pain Reported Location Left Knee Intensity 5 Scale Used Numeric (0 - 10) Pain Management Techniques Modification of Treatment, Timing of Activity with Medications M4 PT-IP Mobility and Gait Start: 08/01/20 15:49 Freq: NEEDED Status: Active Protocol: Document 08/02/20 09:47 CLB (Rec: 08/02/20 10:14 CLB [id number]) PT-Bed Mobility Assessment Supine to Sit Supine to Sit Independent Sit to Supine Sit to Supine Independent PT-Transfer Assessment Sit to and From Stand Sit to and from Stand Standby Assistance,Use of Upper Extremities Equipment Transfer Assistive Device Gait Belt,Front Wheeled Walker Orthotic/Prosthetic Devices or Brace: No Transfers Transfer Destination Bed Transfer Technique Stand Step Pivot Transfer Ability Level of Assist Standby Assistance Comments Mobility Comments Pt able to get to EOB Ind. Pt ambulated in law SBA ~200ft w /FWW. Pt required cues for posture and steady push of FWW while walking with small step thru gait pattern. Pt with good pain control during ambulation. Pt returned to room returning to supine with HOB elevated. Pt respectfully refused ther ex stating she went over everything with PT Clarita before surgery and would like to go home not. Pt left in bed with all needs within reach and present. 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 Gait Assessment Gait Gait Assistance Required: Standby Assistance Distance (Feet) 200 Able to Maintain Weight Bearing Status Yes During Gait Assistive Devices Assistive Device Gait Belt,Front Wheeled Walker Orthotic/Prosthetic Devices or Brace: No Gait Deviations General Gait Pattern Antalgic,Decreased Stride Length,Decreased Feet Clearance Factors Limiting Gait Function Factors Limiting Gait Function Decreased Activity Tolerance, Decreased Strength,Limited Range of Motion,Pain,Poor Balance Comments Gait Comments see mobility comments Stair Climbing Assessment Comments Stair Climbing Comments none at home PT-Balance Assessment Sitting Balance and Reactions Static Sitting Balance Ability Good Dynamic Sitting Balance Ability Good Standing Balance and Reactions Static Standing Balance Ability Fair Dynamic Standing Balance Ability Poor Device Used FWW M5 PT-IP Objective Assessments Start: 08/01/20 15:49 Freq: NEEDED Status: Active Protocol: Document 08/01/20 14:25 AB (Rec: 08/01/20 16:10 AB [id number]) Orientation Orientation/Cognition Level of Alertness Alert Orientation Name,Place,Situation Safety Awareness Decreased Safety Awareness Gross Range of Motion Lower Extremity ROM Assessment Left Impaired Impairments L knee flexion: ~ 40 deg with increase guarding with movement Strength Lower Extremity Strength Assessment Left Impaired Hip 4-/5 Knee 3+/5 Sensation Assessment Sensation Sensation Description Numbness Comments Sensation Comments c/o buttocks numbness and upper thigh slight numbness Muscle Tone Muscle Tone WNL Yes M6 PT-IP Treatment Start: 08/01/20 15:49 Freq: NEEDED Status: Active Protocol: Document 08/01/20 14:25 AB (Rec: 08/01/20 16:10 AB [email or web address]) Physical Therapy Treatment Exercises Exercises Heel Slides Education Education Provided Precautions,Weight Bearing Status,Post-Op Packet,Safety M7 PT-IP Assessment and Plan Start: 08/01/20 15:49 Freq: NEEDED Status: Active Protocol: Document 08/02/20 09:47 CLB (Rec: 08/02/20 10:14 CLB [id number]) PT Summary Assessment and Plan Potential Rehabilitation Potential Good Status of Condition at Evaluation Evolving Summary Impairments Pain,ROM,Strength,Balance, Coordination,Sensation, Cognition,Bed Mobility, Transfers,Gait,Activity Tolerance Assessment Summary Pt is Ind with bed mobility and SBA with sit<>Stand and gait. Pt ambulated with small step thru gait pattern with good pain control. Pt eager to d/c home refusing ther ex but states she has good understanding due to pre-op PT . Pt plans to d/c home with to assist. Goals Bed Mobility Goal Independent Transfer Goal Independent,Front Wheeled Walker Gait Goal Independent,Front Wheel Walker Gait Distance 150 Days to Meet Goals 5 Frequency of Treatment Frequency Of Treatment Twice a Day Treatment Plan Physical Therapy Treatment Plan Bed Mobility Training,Transfer Training,Gait Training, Therapeutic Exercise,Balance Retraining,Post Op Education, Discharge Planning,Hot or Cold Pack,Neuromuscular Re-ed, Coordination Retraining,Manual Therapy Precautions Other Precautions LLE WBAT Recommendations To Nursing Amount of Assist Needed 1 Person Assist Discharge Recommendations PT Discharge Recommendations Home with Assistance, Outpatient PT Transportation Needs at Discharge Private Vehicle
--- NOTE | 2020-08-02 11:51 | CM.DANOTE ---
Discharge Planning/Care Management DCP: assessment: Checked in with pt briefly as she was mobilizing cb PT in law this morning. Spouse Mari also present. 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 Pt says she is going home today and Mari confirms he will be there for supportive help. No d/c concerns are noted. PT has cleared pt for home setting. Payer: [facility] Discharge Assessment Start: 08/02/20 11:50 Freq: Status: Active Protocol: Document 08/02/20 11:50 ITV (Rec: 08/02/20 11:51 ITV [id number]) Discharge Planning Assessment Advance Directives? No History Provided By Patient,Medical Record Prior Living Arrangements House Household Members spouse Independent with ADL's Yes Is patient alert and oriented? Yes Discharge Plan Home Pre-Anesthesia Assessment Start: 07/25/20 10:30 Freq: Status: Active Protocol: Document 07/25/20 10:30 CAB (Rec: 07/25/20 10:41 CAB [id number]) Pre-Anesthesia Assessment Patient Information Reviewed Via Phone Assessment Assessment Completed With Patient Diagnostic Results BMP/CMP,CBC,EKG Comment Labs/EKG @ [facility] 06/28/20, COVID screen @ 07/30/20 Primary Care Provider Anabel Santizo Seen Specialist in Last 12 Months Yes Specialist Seen Orthopedist Comment PCP visit 06/28/20, clearance 05/28/20 scanned to record Primary Language Syriac Proof Plate Maker Required No Height 165.1 cm Weight 113.852 kg Body Mass Index (BMI) 41.8 Hearing Ability Normal Visual Assist Glasses Dentition Type Teeth, Natural Present Barriers to Learning None Hx Anesthesia Reactions No Hx Family Anesthesia Reaction No Hx Malignant Hyperthermia No Hx Blood Transfusions No Anesthesia Review Requested No alcohol intake current alcohol intake frequency holidays/special occasions only Smoking Status Never smoker Substance Use Type does not use Pain Present Pain Reported Musculoskeletal Symptoms Abnormal Gait,Difficulty Walking,Joint Pain History of Falling (Recent or History of No ) Patient is completely paralyzed or No completely immobile Prosthesis or Orthotic Device Cane Mental Status Oriented to own ability Is patient on oxygen? No Does patient have SANTIAGO/SOB No Hx Sleep Apnea No Currently Taking a Beta Nitin Yes: Propranolol Can You Climb a Flight of Stairs Without Yes SOB Hx Chest Pain No Hx SOB No Hx Syncope or Dizziness Yes: With standing up too fast Anti-Coagulant Therapy No Has a Clinical Quality Manager No Cardiac Testing No Hx Pacemaker/ICD No Pacemaker Rep Required? No Cardiac Clearance Received Not Applicable Diet Type At Home Regular dysphagia No Bladder Pattern Incontinent, Stress Urinary Catheter Present No Hx Urinary Self Catheterization No Diabetes No Patient No Lactating No Hx Drug Resistant Organism No Presence of External or Internal Medical No Devices Have you had any close contact with No someone diagnosed with COVID-19? Marital Status Lives With spouse Prior Living Arrangements House Support System Spouse Does the Patient Have Assistance After Yes Surgery Patient Discharge Plan Description Return Home Comment Pt advised overnight length of stay per surgeon Feels Safe in Current Environment Yes Been Physically Hurt or Threatened By a No Person in Current Environment Do you have thoughts of harming yourself None or others? Are you currently considering suicide? No Do you have a plan to hurt yourself or No Plan others? Do You Have Any Spiritual Beliefs That Yes: No pork, shellfish May Affect Your HC Choices? Do You Have Any Cultural Practices That No May Affect Your HC Choices? Comment day tenriism Who Can We Speak to About Patient's Care Family, friends Identifying Code for Release of Patient Declines to issue Information Health Care Proxy/Next of Kin Mari () Health Care Proxy Emergency Contact Name Mari () Emergency Contact Advance Directives? No Power of Leather Dresser No PAC Instructions Do not shave/clip surgical site,Durable medical equipment ,Medications to take/avoid, Nasal antibiotic,No ETOH/ petroleum product on skin DOS, NPO,Post-op transportation,Pre -surgical wash,Sturdy shoes/ comfortable clothes,Do not bring valuables and remove jewelry
--- NOTE | 2020-08-02 11:59 | PC.NURSE ---
Patient is doing quite well in terms of mobility and pain control, eager to d/c home. Pain control given and meds reviewed. Education provided with meloxicam and nsaid use. Pt will not be using meloxicam at this time. Rx sent to [facility]. IV cath removed and Pt wheeled to private vehicle.
== END 2020-08-02 12:20 | disposition home or self-care (01) ==
LOC: OR 07:25 → AC 11:44
PROVIDERS: Family Provider Physician Assistant; PCP Physician Assistant; Referring Provider Physician Assistant; Visit Provider Orthopaedic Surgery Adult Reconstructive Orthopaedic Surgery
PROC: 0SRD0JZ Replacement of Left Knee Joint with Synthetic Substitute, Open Approach (ICD-10-PCS; CPT 27447; principal; 2020-08-01 08:45)
DX: M17.12 Unilateral primary osteoarthritis, left knee (principal); M21.162 Varus deformity, not elsewhere classified, left knee; E66.9 Obesity, unspecified
CPT/HCPCS: 27447; 73560; 85014; 85018; 97116; 97162; 97530; C1776; J0690; J1100; J1885; J2250; J2270; J2405; J2704; J3010

== ENCOUNTER → 2020-09-07 14:00 | Outpatient (CLI) | payer OTHER, SELFPAY ==
[2020-08-01 11:58] VITALS: BMI 41.5
[2020-09-07] MEDS: COVID-19 VACC, Ad26(JANSSEN)/PF 0.5 ML IM (14:08)
== END ==
PROVIDERS: Family Provider Physician Assistant; PCP Physician Assistant; Visit Provider Internal Medicine
DX: Z23 Encounter for immunization (principal)
CPT/HCPCS: 0031A; 91303

== ENCOUNTER 2020-09-27 13:45 | Outpatient (RCR) | payer OTHER, SELFPAY ==
--- NOTE | 2020-07-26 15:07 | PT.OIE ---
Current Diagnoses Unilateral primary osteoarthritis, left knee (07/26/20) Difficulty in walking, not elsewhere classified (07/26/20) Weakness (07/26/20) Past Medical History (Last Updated 07/25/20 @ 11:09 by Rika Somers, RN) No pertinent past medical history Osteoarthritis Stomach ulcer Yeast infection Past Surgical History (Last Updated 07/25/20 @ 11:09 by Rika Somers RN) History of bilateral carpal tunnel release History of cholecystectomy History of esophagogastroduodenoscopy (EGD) History of hysterectomy Visit Care Team Role Provider Type Anabel Santizo PA-C Family Provider Non-Staff Primary Care Provider Specialty: Internal Medicine Address: [address] [place] [address], [address] Email: [email or web address] Fady Seay MD Attending Provider Physician Referring Provider Specialty: Orthopedic Surgery Address: [address] [place] [address], [address] Email: [email or web address] Physical Therapy Initial Evaluation PT-OP-A Visit Information Start: 07/25/20 18:05 Freq: Status: Active Protocol: Document 07/26/20 13:48 [facility] (Rec: 07/26/20 15:05 [facility] [id number]) Out-Patient Physical Therapy Visit Information Visit Information Visit Type Initial Evaluation Visit Start Time 13:48 Visit Stop Time 14:35 Total Visit Minutes 47 Visit Number 1 Number of LICENSING COORDINATOR Visits 0 PT-OP-B Current Condition Start: 07/25/20 18:05 Freq: Status: Active Protocol: Document 07/26/20 13:48 [facility] (Rec: 07/26/20 15:05 [facility] [id number]) Current Condition History of Current Condition Onset Date over a year ago Current Complaints L knee pain History of Current Condition Pt reports pain starting last Apr when she had a pop in the back of her knee and had trouble bearing weight into leg. Pt was off work for a few weeks. Pain has been up and down where someitmes it feels like its getting better and other times can barely move. She has had a couple injections with them helping temporarily only. Now getting L TKA on 08/01/20. Pt got a cane and FWW. Plans to move some things in house so there is more room for her and walker. Her house was origninally made for her mother in law who was handicap. Pt has no XIOMY and is [facility]. Pt has tub and normal toilet. 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 Job entails: standing, walking, pushing carts, lifting, and putting stock away. Pt does take care of mother w/Parkinson's who lives on her owna nd can move on her own. 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, be able return to work PT-OP-C Subjective Start: 07/25/20 18:05 Freq: Status: Active Protocol: Document 07/26/20 13:48 [facility] (Rec: 07/26/20 15:06 [facility] [id number]) Patient Questionnaires Lower Extremity Functional Scale LEFS Score 46 LEFS Impairment 40 to 59% Impaired (Score 32- 47) PT-OP-G Mobility & Gait Start: 07/25/20 18:05 Freq: Status: Active Protocol: Document 07/26/20 13:48 [facility] (Rec: 07/26/20 15:05 [facility] [id number]) OP Gait Assessment Comments Gait Comments Dec stance time and dec push off on LLE w/lat leaning L>R PT-OP-K Range of Motion Start: 07/25/20 18:05 Freq: Status: Active Protocol: Document 07/26/20 13:48 [facility] (Rec: 07/26/20 15:05 [facility] [id number]) Knee Goniometric Range of Motion Knee Right Flexion Active (degrees) 114 Extension Active (degrees) 0 Left Patient Position Supine Flexion Active (degrees) 81 Extension Active (degrees) 5 PT-OP-M Strength Start: 07/25/20 18:05 Freq: Status: Active Protocol: Document 07/26/20 13:48 [facility] (Rec: 07/26/20 15:05 [facility] [id number]) Hip Strength Hip Manual Muscle Testing Right Flexion (L2) 4 Good Abduction 3+ Fair+ External Rotation 4 Good Internal Rotation 4 Good Left Flexion (L2) 3+ Fair+ Abduction 3+ Fair+ External Rotation 3 Fair Internal Rotation 3 Fair Knee Strength Knee Manual Muscle Testing Right Flexion (S2) 4 Good Extension (L3) 5 Normal Left Flexion (S2) 3+ Fair+ Extension (L3) 4- Good- Ankle/Foot Strength Ankle and Foot Manual Muscle Testing Right Dorsiflexion (L4) 5 Normal Plantarflexion (S1) 5 Normal Left Dorsiflexion (L4) 5 Normal Plantarflexion (S1) 4 Good Comments seated PF testing PT-OP-Q Treatments Start: 07/25/20 18:05 Freq: Status: Active Protocol: Document 07/26/20 13:48 [facility] (Rec: 07/26/20 15:05 [facility] [id number]) Therapeutic Activity Therapeutic Activity walker Name walker set up w/edu for step to pattern bed mobility Name edu for up/down from bed w/use of cane for leg lift sit to stand Name edu for leg out in front and push from chair Self-Care/Home Management Treatment Education Other Education edu of packet info for L TKA, edu on icing, elevation, syncope precautions, frequent small bouts of activity, edu on possible help of shower seat and/or tub transfer bench , L TKA exercises PT-OP-T Assessment and Plan Start: 07/25/20 18:05 Freq: Status: Active Protocol: Document 07/26/20 13:48 [facility] (Rec: 07/26/20 15:05 [facility] [id number]) Physical Therapy Assessment Rehab Potential Rehabilitation Potential Good Evaluation Complexity Number of Personal Factors/Comorbidities 1-2 Number of Body Systems Impaired 4 or More Clinical Presentation at Evaluation Evolving Impairments Impairments Activity Tolerance,Balance, Functional Activities, Functional Mobility,Gait,Pain, ROM,Soft Tissue Mobility, Strength,Transfers Goals 1 Typing Pool Supervisor Goal (LTG) Pt will be able to show good understanding for walker use and safe transfers in prep for L TKA. LTG Duration 08/09/20 Assessment Summary Assessment Pt presents w/L knee pain starting about 14 months ago when her knee popped and pain has been limiting her since. She has had progressive worsening of degeneration & pain has been up/down but she has not gotten back to how she was before this incident and iss planning L TKA on 08/01/20 and attended today for pre-op appt in order to learn how to recover from surgery. SHe did well with all education and already has post-op PT scheduled along w/FWW and cane at home. 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 Physical Therapy Plan Frequency and Duration Frequency of Treatment 1x/Week Duration of Treatment 2 weeks Plan of Care Start Date 07/26/20 Plan of Care End Date 08/09/20 Therapeutic Interventions Therapeutic Interventions Aquatic Therapy,Balance Training,Gait Training,Home Exercise Program,Joint Mobilizations,Manual Therapy, Neuromuscular Re-education, Patient/Caregiver Education, Self-Care/Home Management,Soft Tissue Mobilization,Taping, Therapeutic Activities, Therapeutic Exercises Modalities Cold Pack/Ice Massage,Electric Stimulation,Hot Packs, Ultrasound Next Visit Focus/Plan Next Note Type Re-Evaluation Next Visit Plan assess where pt is after L TKA , edu on gait, exercises as needed, seated stepper
--- NOTE | 2020-07-26 15:07 | PT.OPPOC ---
Physical, Occupational & Speech Therapy At [facility] Current Diagnoses Unilateral primary osteoarthritis, left knee (07/26/20) Difficulty in walking, not elsewhere classified (07/26/20) Weakness (07/26/20) Visit Care Team Role Provider Type Anabel Santizo PA-C Family Provider Non-Staff Primary Care Provider Specialty: Internal Medicine Address: [address] [place] [address], [address] Email: [email or web address] Fady Seay MD Attending Provider Physician Referring Provider Specialty: Orthopedic Surgery Address: [address] [place] [address], [address] Email: [email or web address] Plan Of Care PT-OP-T Assessment and Plan Start: 07/25/20 18:05 Freq: Status: Active Protocol: Document 07/26/20 13:48 [facility] (Rec: 07/26/20 15:05 [facility] [id number]) Physical Therapy Assessment Rehab Potential Rehabilitation Potential Good Evaluation Complexity Number of Personal Factors/Comorbidities 1-2 Number of Body Systems Impaired 4 or More Clinical Presentation at Evaluation Evolving Impairments Impairments Activity Tolerance,Balance, Functional Activities, Functional Mobility,Gait,Pain, ROM,Soft Tissue Mobility, Strength,Transfers Goals 1 Zinc Plater Goal (LTG) Pt will be able to show good understanding for walker use and safe transfers in prep for L TKA. LTG Duration 08/09/20 Assessment Summary Assessment Pt presents w/L knee pain starting about 14 months ago when her knee popped and pain has been limiting her since. She has had progressive worsening of degeneration & pain has been up/down but she has not gotten back to how she was before this incident and iss planning L TKA on 08/01/20 and attended today for pre-op appt in order to learn how to recover from surgery. SHe did well with all education and already has post-op PT scheduled along w/FWW and cane at home. 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 Physical Therapy Plan Frequency and Duration Frequency of Treatment 1x/Week Duration of Treatment 2 weeks Plan of Care Start Date 07/26/20 Plan of Care End Date 08/09/20 Therapeutic Interventions Therapeutic Interventions Aquatic Therapy,Balance Training,Gait Training,Home Exercise Program,Joint Mobilizations,Manual Therapy, Neuromuscular Re-education, Patient/Caregiver Education, Self-Care/Home Management,Soft Tissue Mobilization,Taping, Therapeutic Activities, Therapeutic Exercises Modalities Cold Pack/Ice Massage,Electric Stimulation,Hot Packs, Ultrasound Next Visit Focus/Plan Next Note Type Re-Evaluation Next Visit Plan assess where pt is after L TKA , edu on gait, exercises as needed, seated stepper Plan of Care Dates Plan of Care Start Date 07/26/20 Plan of Care End Date 08/09/20 Electronically Signed by: Clarita Corley, PT 07/26/20 0805 Please Sign and Return: I have reviewed this Plan of Care and certify that the skilled therapy services above are required to meet the patient?s needs. Physician Signature Date Printed Name and Credentials Clinical Instructor Signature Printed Name and Credentials
--- NOTE | 2020-08-07 17:48 | PT.OPPOC ---
Physical, Occupational & Speech Therapy At [facility] Current Diagnoses Unilateral primary osteoarthritis, left knee (08/07/20) Difficulty in walking, not elsewhere classified (08/07/20) Weakness (08/07/20) Visit Care Team Role Provider Type Anabel Santizo PA-C Family Provider Non-Staff Primary Care Provider Specialty: Internal Medicine Address: [address] [place] [address], [id number] Email: [email or web address] Fady Seay MD Attending Provider Physician Referring Provider Specialty: Orthopedic Surgery Address: [address] [place] [address], [id number] Email: [email or web address] Plan Of Care PT-OP-T Assessment and Plan Start: 07/25/20 18:05 Freq: Status: Active Protocol: Document 08/07/20 16:04 [facility] (Rec: 08/07/20 16:50 [facility] [id number]) Physical Therapy Assessment Rehab Potential Rehabilitation Potential Good Impairments Impairments Activity Tolerance,Balance, Functional Activities, Functional Mobility,Gait,Pain, Posture,ROM,Soft Tissue Mobility,Strength,Transfers Goals walking Short Term Goal (STG) Pt will be able to amb with good gait mechanics w/SPC for at least 15 min without inc pain over 5/10. STG Duration 09/08/20 Plaster Mechanic Goal (LTG) Pt will be able to amb as needed without AD without inc pain greater than 2/10. LTG Duration 10/07/20 activities Short Term Goal (STG) Pt will be able to squat down to pick up attendant objects without increased pain. STG Duration 09/16/20 Skilled Nursing Goal (LTG) Pt will be able to return to working without inc pain greater than 3/10 LTG Duration 10/07/20 strength Short Term Goal (STG) Pt will be indep w/ HEP STG Duration 09/07/20 Skilled Nursing Goal (LTG) Pt will imrpove LE strength to at least 4+/5 in all planes to show imrpoved stability and strength to return to typical activities. LTG Duration 10/07/20 1 Impairment LEFS 22/80 Short Term Goal (STG) Pt will improve LEFS score to 46 to show improvement in functional ability. STG Duration 09/08/20 Skilled Nursing Goal (LTG) Pt will improve LEFS score to 60 to show improvement in functional ability. LTG Duration 10/07/20 Assessment Summary Assessment Pt presents 1 week s/p L TKA with no complications. She has been able to manage pain mostly w/tylenol/ibuprofen w/ occasional narcotic use and is amb w/step throguh gait w/FWW . She is noting significatn pain w/exercises and was educated on importance of getting them in throughout the day along w/icing and elevating for pain and inflamation. She has dec strength w/dec quad strength which prevents her from completing a SLR to lift leg into bed at this time, but has been able to indep mobilize by using UEs to assist LE. Pt would benefit from skilled PT to work on gait mechanics, LE & core stability, L knee ROM, dec swelling, and improve functional ability. Physical Therapy Plan Frequency and Duration Frequency of Treatment 2x/Week Duration of Treatment 2 months Plan of Care Start Date 08/07/20 Plan of Care End Date 10/07/20 Therapeutic Interventions Therapeutic Interventions Aquatic Therapy,Balance Training,Gait Training,Home Exercise Program,Joint Mobilizations,Manual Therapy, Neuromuscular Re-education, Patient/Caregiver Education, Self-Care/Home Management,Soft Tissue Mobilization,Taping, Therapeutic Activities, Therapeutic Exercises Modalities Cold Pack/Ice Massage,Electric Stimulation,Hot Packs, Ultrasound Next Visit Focus/Plan Next Note Type Treatment Note Next Visit Plan stepper, leg press, knee flex on ball, review exercises as needed Plan of Care Dates Plan of Care Start Date 08/07/20 Plan of Care End Date 10/07/20 Electronically Signed by: Clarita Corley, PT 08/08/20 [id number] Please Sign and Return: I have reviewed this Plan of Care and certify that the skilled therapy services above are required to meet the patient?s needs. Physician Signature Date Printed Name and Credentials Clinical Instructor Signature Printed Name and Credentials
--- NOTE | 2020-08-07 17:48 | PT.OIE ---
Current Diagnoses Unilateral primary osteoarthritis, left knee (08/07/20) Difficulty in walking, not elsewhere classified (08/07/20) Weakness (08/07/20) Past Medical History (Last Reviewed 08/02/20 @ 09:28 by Mike Cooper PA-C) No pertinent past medical history Osteoarthritis Stomach ulcer Yeast infection Past Surgical History (Last Reviewed 08/02/20 @ 09:28 by Mike Cooper PA-C) History of bilateral carpal tunnel release History of cholecystectomy History of esophagogastroduodenoscopy (EGD) History of hysterectomy Visit Care Team Role Provider Type Anabel Santizo PA-C Family Provider Non-Staff Primary Care Provider Specialty: Internal Medicine Address: [address] [place] [address], [id number] Email: [email or web address] Attending Provider Physician Referring Provider Specialty: Orthopedic Surgery Address: [address] [place] [address], [id number] Email: [email or web address] Physical Therapy Initial Evaluation PT-OP-A Visit Information Start: 07/25/20 18:05 Freq: Status: Active Protocol: Document 08/07/20 16:04 [facility] (Rec: 08/07/20 16:50 [facility] [id number]) Out-Patient Physical Therapy Visit Information Visit Information Visit Type Re-Evaluation Visit Start Time 16:04 Visit Stop Time 16:45 Total Visit Minutes 41 Visit Number 2 Number of BOARD MEMBER Visits 0 PT-OP-B Current Condition Start: 07/25/20 18:05 Freq: Status: Active Protocol: Document 08/07/20 16:04 [facility] (Rec: 08/07/20 16:50 [facility] [id number]) Current Condition History of Current Condition Onset Date 08/01/20 Current Complaints L TKA History of Current Condition 08/07-Surgery went well and was able to go home the next day. Has been able to get in/out of bed w/using UEs. Has not showered yet d/t difficulty getting into tub w/shower doors. Pt has been able to get dressed and get socks on herself. It takes her some time, but gets them on. IE:Pt reports pain starting last Apr when she had a pop in the back of her knee and had trouble bearing weight into leg. Pt was off work for a few weeks. Pain has been up and down where someitmes it feels like its getting better and other times can barely move. She has had a couple injections with them helping temporarily only. Now getting L TKA on 08/01/20. Pt got a cane and FWW. Plans to move some things in house so there is more room for her and walker. Her house was origninally made for her mother in law who was handicap. Pt has no XIOMY and is SLH. Pt has tub and normal toilet. 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 Job entails: standing, walking, pushing carts, lifting, and putting stock away. Pt does take care of mother w/Parkinson's who lives on her owna nd can move on her own. 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, be able return to work PT-OP-C Subjective Start: 07/25/20 18:05 Freq: Status: Active Protocol: Document 08/07/20 16:04 [facility] (Rec: 08/07/20 16:50 [facility] [id number]) Patient Questionnaires Lower Extremity Functional Scale LEFS Score 22/80 OP-PT Pain Assessment Location L knee Pain Location Details ant knee around patella Scale Used worst 7-8/10 Description Aching,Sharp Frequency Frequent Pain Aggravating Factors Walking,Bending,Lifting Pain Alleviating Factors Cold,Inactivity Other Pain Alleviating Factors occ oxycodone, tylenol 3x/day & ibuprofen 4x/day, aspirin PT-OP-F Manual Assessment Start: 07/25/20 18:05 Freq: Status: Active Protocol: Document 08/07/20 16:04 [facility] (Rec: 08/07/20 16:50 [facility] [id number]) Manual Assessments Soft Tissue Assessment Soft Tissue Mobility Assessment swelling, bruising most ant med and some post in HS & calf PT-OP-G Mobility & Gait Start: 07/25/20 18:05 Freq: Status: Active Protocol: Document 08/07/20 16:04 [facility] (Rec: 08/07/20 16:50 [facility] [id number]) OP Mobility Evaluation Bed Mobility Supine to and from Sit requires self UE assist Transfers Sit to Stand puts leg out in front for sit to stand and uses hands OP Gait Assessment Comments Gait Comments step throught w/FWW w/fwd lean w/WB on LLE PT-OP-K Range of Motion Start: 07/25/20 18:05 Freq: Status: Active Protocol: Document 08/07/20 16:04 [facility] (Rec: 08/07/20 16:50 [facility] [id number]) Knee Goniometric Range of Motion Knee Right Flexion Active (degrees) 114 Extension Active (degrees) 0 Left Flexion Active (degrees) 65 Extension Active (degrees) 11 PT-OP-M Strength Start: 07/25/20 18:05 Freq: Status: Active Protocol: Document 08/07/20 16:04 [facility] (Rec: 08/07/20 16:50 [facility] [id number]) Hip Strength Hip Manual Muscle Testing Right Flexion (L2) 4 Good Abduction 3+ Fair+ External Rotation 4+ Good+ Internal Rotation 4+ Good+ Left Flexion (L2) 3 Fair Abduction 3 Fair External Rotation 3 Fair Internal Rotation 3 Fair Knee Strength Knee Manual Muscle Testing Right Flexion (S2) 5 Normal Extension (L3) 5 Normal Left Flexion (S2) 3 Fair Extension (L3) 3 Fair Ankle/Foot Strength Ankle and Foot Manual Muscle Testing Right Dorsiflexion (L4) 5 Normal Plantarflexion (S1) 5 Normal Left Dorsiflexion (L4) 5 Normal Plantarflexion (S1) 3+ Fair+ Comments seated PF testing B PT-OP-Q Treatments Start: 07/25/20 18:05 Freq: Status: Active Protocol: Document 08/07/20 16:04 [facility] (Rec: 08/07/20 16:50 [facility] [id number]) Therapeutic Exercises Supine Exercises passive ext Side left Reps/Minutes 1 min SLR Supine Exercise Name AAROm w/ belt Side left Reps/Minutes 6 quad set Side left Reps/Minutes 5 sec x10 SAQ Side left Reps/Minutes 6 heel slides Supine Exercise Name AAROm w/gait belt Side left Reps/Minutes 10 x5 sec Sitting Exercises knee flex Sitting Exercise Name flex Side left Reps/Minutes 3(5 toe taps each) Self-Care/Home Management Treatment Education Other Education edu for cont icing and elevation, edu re: progression and how pt is doing well with gait and current progress, edu to make sure to get in exercies 2-3x/day and cont doing frequent short bouts of walking PT-OP-T Assessment and Plan Start: 07/25/20 18:05 Freq: Status: Active Protocol: Document 08/07/20 16:04 [facility] (Rec: 08/07/20 16:50 [facility] [id number]) Physical Therapy Assessment Rehab Potential Rehabilitation Potential Good Impairments Impairments Activity Tolerance,Balance, Functional Activities, Functional Mobility,Gait,Pain, Posture,ROM,Soft Tissue Mobility,Strength,Transfers Goals walking Short Term Goal (STG) Pt will be able to amb with good gait mechanics w/SPC for at least 15 min without inc pain over 5/10. STG Duration 09/08/20 Senior Care Goal (LTG) Pt will be able to amb as needed without AD without inc pain greater than 2/10. 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 STG Duration 09/16/20 Senior Care Goal (LTG) Pt will be able to return to working without inc pain greater than 3/10 LTG Duration 10/07/20 strength Short Term Goal (STG) Pt will be indep w/ HEP STG Duration 09/07/20 Field Pipelines Supervisor Goal (LTG) Pt will imrpove LE strength to at least 4+/5 in all planes to show imrpoved stability and strength to return to typical activities. LTG Duration 10/07/20 1 Impairment LEFS 22/80 Short Term Goal (STG) Pt will improve LEFS score to 46 to show improvement in functional ability. STG Duration 09/08/20 Field Pipelines Supervisor Goal (LTG) Pt will improve LEFS score to 60 to show improvement in functional ability. LTG Duration 10/07/20 Assessment Summary Assessment Pt presents 1 week s/p L TKA with no complications. She has been able to manage pain mostly w/tylenol/ibuprofen w/ occasional narcotic use and is amb w/step throguh gait w/FWW . She is noting significatn pain w/exercises and was educated on importance of getting them in throughout the day along w/icing and elevating for pain and inflamation. She has dec strength w/dec quad strength which prevents her from completing a SLR to lift leg into bed at this time, but has been able to indep mobilize by using UEs to assist LE. Pt would benefit from skilled PT to work on gait mechanics, LE & core stability, L knee ROM, dec swelling, and improve functional ability. Physical Therapy Plan Frequency and Duration Frequency of Treatment 2x/Week Duration of Treatment 2 months Plan of Care Start Date 08/07/20 Plan of Care End Date 10/07/20 Therapeutic Interventions Therapeutic Interventions Aquatic Therapy,Balance Training,Gait Training,Home Exercise Program,Joint Mobilizations,Manual Therapy, Neuromuscular Re-education, Patient/Caregiver Education, Self-Care/Home Management,Soft Tissue Mobilization,Taping, Therapeutic Activities, Therapeutic Exercises Modalities Cold Pack/Ice Massage,Electric Stimulation,Hot Packs, Ultrasound Next Visit Focus/Plan Next Note Type Treatment Note Next Visit Plan stepper, leg press, knee flex on ball, review exercises as needed
--- NOTE | 2020-08-09 15:20 | PT.OTN ---
Current Diagnoses Unilateral primary osteoarthritis, left knee (08/09/20) Difficulty in walking, not elsewhere classified (08/09/20) Weakness (08/09/20) Physical Therapy Treatment Note PT-OP-A Visit Information Start: 07/25/20 18:05 Freq: Status: Active Protocol: Document 08/09/20 14:32 [facility] (Rec: 08/09/20 16:09 [facility] [id number]) Out-Patient Physical Therapy Visit Information Visit Information Visit Type Treatment Note Visit Note attended tx, observation. Visit Start Time 14:32 Visit Stop Time 15:20 Total Visit Minutes 48 Visit Number 3 Number of MEDIA RELATIONS COORDINATOR Visits 1 PT-OP-B Current Condition Start: 07/25/20 18:05 Freq: Status: Active Protocol: Document 08/07/20 16:04 [facility] (Rec: 08/07/20 16:50 [facility] [id number]) Current Condition History of Current Condition Onset Date 08/01/20 Current Complaints L TKA History of Current Condition 08/07-Surgery went well and was able to go home the next day. Has been able to get in/out of bed w/using UEs. Has not showered yet d/t difficulty getting into tub w/shower doors. Pt has been able to get dressed and get socks on herself. It takes her some time, but gets them on. IE:Pt reports pain starting last Apr when she had a pop in the back of her knee and had trouble bearing weight into leg. Pt was off work for a few weeks. Pain has been up and down where someitmes it feels like its getting better and other times can barely move. She has had a couple injections with them helping temporarily only. Now getting L TKA on 08/01/20. Pt got a cane and FWW. Plans to move some things in house so there is more room for her and walker. Her house was origninally made for her mother in law who was handicap. Pt has no XIOMY and is SLH. Pt has tub and normal toilet. 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 Job entails: standing, walking, pushing carts, lifting, and putting stock away. Pt does take care of mother w/Parkinson's who lives on her owna nd can move on her own. Treatment Goals Patient/Caregiver Goals Be able to walk without a limp , be able to bend over and pickle cutter something w/o pain, be able return to work PT-OP-C Subjective Start: 07/25/20 18:05 Freq: Status: Active Protocol: Document 08/09/20 14:32 [facility] (Rec: 08/09/20 16:09 [facility] [id number]) OP-PT Subjective Patient Comments Patient Comments Pt stated was sore after last tx, compliant with HEP but reluctant with pain, did have to take pain meds x2 days the past few days, good with icing . Pt stated F/U appt . PT-OP-F Manual Assessment Start: 07/25/20 18:05 Freq: Status: Active Protocol: Document 08/07/20 16:04 [facility] (Rec: 08/07/20 16:50 [facility] [id number]) Manual Assessments Soft Tissue Assessment Soft Tissue Mobility Assessment swelling, bruising most ant med and some post in HS & calf PT-OP-G Mobility & Gait Start: 07/25/20 18:05 Freq: Status: Active Protocol: Document 08/07/20 16:04 [facility] (Rec: 08/07/20 16:50 [facility] [id number]) OP Mobility Evaluation Bed Mobility Supine to and from Sit requires self UE assist Transfers Sit to Stand puts leg out in front for sit to stand and uses hands OP Gait Assessment Comments Gait Comments step throught w/FWW w/fwd lean w/WB on LLE PT-OP-K Range of Motion Start: 07/25/20 18:05 Freq: Status: Active Protocol: Document 08/09/20 14:32 [facility] (Rec: 08/09/20 16:09 [facility] [id number]) Knee Goniometric Range of Motion Knee Left Flexion Active (degrees) 82 Flexion Passive (degrees) 98 Extension Active (degrees) 5 Comments 82 deg supine HS 98 deg flex AAROM passive ext hang over Tball 5 deg, flush with table supine, PT-OP-M Strength Start: 07/25/20 18:05 Freq: Status: Active Protocol: Document 08/07/20 16:04 [facility] (Rec: 08/07/20 16:50 [facility] [id number]) Hip Strength Hip Manual Muscle Testing Right Flexion (L2) 4 Good Abduction 3+ Fair+ External Rotation 4+ Good+ Internal Rotation 4+ Good+ Left Flexion (L2) 3 Fair Abduction 3 Fair External Rotation 3 Fair Internal Rotation 3 Fair Knee Strength Knee Manual Muscle Testing Right Flexion (S2) 5 Normal Extension (L3) 5 Normal Left Flexion (S2) 3 Fair Extension (L3) 3 Fair Ankle/Foot Strength Ankle and Foot Manual Muscle Testing Right Dorsiflexion (L4) 5 Normal Plantarflexion (S1) 5 Normal Left Dorsiflexion (L4) 5 Normal Plantarflexion (S1) 3+ Fair+ Comments seated PF testing B PT-OP-Q Treatments Start: 07/25/20 18:05 Freq: Status: Active Protocol: Document 08/09/20 14:32 [facility] (Rec: 08/09/20 16:09 [facility] [id number]) Therapeutic Exercises Supine Exercises knee flexion over Tball Side left Resistance AAROM Reps/Minutes 3x5 Comments 90 deg passive ext Supine Exercise Name 20 sec between knee flexion over t ball Side left Equipment Used propped up on orange tball 55cm SLR Supine Exercise Name AAROm w/ belt Side left Reps/Minutes 6 Comments lag noted, cued quad facilitation quad set Side left Reps/Minutes 5 sec x10 SAQ Side left Resistance AAROM x5> AROM x5 heel slides Supine Exercise Name AAROm w/gait belt Side left Reps/Minutes 10 x5 sec Sitting Exercises knee flex Sitting Exercise Name knee flex heel slide Side left Equipment Used slide board, black table lowest height Reps/Minutes x8 Manual Therapy Treatment Soft Tissue Mobilization retro grade massage Body Location ankle, calf, med/lat knee Mobilization Type Myofascial Release Intensity/Depth Superficial Body Position Hooklying PT-OP-R Modalities Start: 07/25/20 18:05 Freq: Status: Active Protocol: Document 08/09/20 14:32 [facility] (Rec: 08/09/20 16:09 [facility] [id number]) Hot Pack/Cold Pack Treatment cryocuff Location L knee Patient Position Hooklying Treatment Duration (minutes) 10 Patient Tolerance Good PT-OP-T Assessment and Plan Start: 07/25/20 18:05 Freq: Status: Active Protocol: Document 08/09/20 14:32 [facility] (Rec: 08/09/20 16:09 [facility] [id number]) Physical Therapy Assessment Goals walking Short Term Goal (STG) Pt will be able to amb with good gait mechanics w/SPC for at least 15 min without inc pain over 5/10. STG Duration 09/08/20 Cooky Packer Goal (LTG) Pt will be able to amb as needed without AD without inc pain greater than 2/10. LTG Duration 10/07/20 activities Short Term Goal (STG) Pt will be able to squat down to pickle cutter objects without increased pain. STG Duration 09/16/20 Senior Living Goal (LTG) Pt will be able to return to working without inc pain greater than 3/10 LTG Duration 10/07/20 strength Short Term Goal (STG) Pt will be indep w/ HEP STG Duration 09/07/20 Senior Living Goal (LTG) Pt will imrpove LE strength to at least 4+/5 in all planes to show imrpoved stability and strength to return to typical activities. LTG Duration 10/07/20 1 Impairment LEFS 22/80 Short Term Goal (STG) Pt will improve LEFS score to 46 to show improvement in functional ability. STG Duration 09/08/20 Senior Living Goal (LTG) Pt will improve LEFS score to 60 to show improvement in functional ability. LTG Duration 10/07/20 Assessment Summary Assessment Pt arrived using B crutches step through gait, reported less pain w/ L knee flexion over tball than heel slides in supine on table and pleased with AAROM was able to complete. HEP review with good form, cued awareness of quad facilitation during SLR and no lag. Physical Therapy Plan Frequency and Duration Frequency of Treatment 2x/Week Duration of Treatment 2 months Plan of Care Start Date 08/07/20 Plan of Care End Date 10/07/20 Therapeutic Interventions Therapeutic Interventions Aquatic Therapy,Balance Training,Gait Training,Home Exercise Program,Joint Mobilizations,Manual Therapy, Neuromuscular Re-education, Patient/Caregiver Education, Self-Care/Home Management,Soft Tissue Mobilization,Taping, Therapeutic Activities, Therapeutic Exercises Modalities Cold Pack/Ice Massage,Electric Stimulation,Hot Packs, Ultrasound Next Visit Focus/Plan Next Note Type Treatment Note Next Visit Plan Assess response to post op ex, knee flex/ ext over tball. Next tx POC: stepper, leg press, continue review exercises as needed
--- NOTE | 2020-08-14 15:20 | PT.OTN ---
Current Diagnoses Unilateral primary osteoarthritis, left knee (08/14/20) Difficulty in walking, not elsewhere classified (08/14/20) Weakness (08/14/20) Physical Therapy Treatment Note PT-OP-A Visit Information Start: 07/25/20 18:05 Freq: Status: Active Protocol: Document 08/14/20 14:32 SP (Rec: 08/14/20 15:49 SP [id number]) Out-Patient Physical Therapy Visit Information Visit Information Visit Type Treatment Note Visit Note attended tx, observation. Visit Start Time 14:32 Visit Stop Time 15:20 Total Visit Minutes 48 Visit Number 4 Number of MASTER NAVAL PARACHUTIST Visits 2 PT-OP-B Current Condition Start: 07/25/20 18:05 Freq: Status: Active Protocol: Document 08/07/20 16:04 [facility] (Rec: 08/07/20 16:50 [facility] [id number]) Current Condition History of Current Condition Onset Date 08/01/20 Current Complaints L TKA History of Current Condition 08/07-Surgery went well and was able to go home the next day. Has been able to get in/out of bed w/using UEs. Has not showered yet d/t difficulty getting into tub w/shower doors. Pt has been able to get dressed and get socks on herself. It takes her some time, but gets them on. IE:Pt reports pain starting last Apr when she had a pop in the back of her knee and had trouble bearing weight into leg. Pt was off work for a few weeks. Pain has been up and down where someitmes it feels like its getting better and other times can barely move. She has had a couple injections with them helping temporarily only. Now getting L TKA on 08/01/20. Pt got a cane and FWW. Plans to move some things in house so there is more room for her and walker. Her house was origninally made for her mother in law who was handicap. Pt has no XIOMY and is SLH. Pt has tub and normal toilet. 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 Job entails: standing, walking, pushing carts, lifting, and putting stock away. Pt does take care of mother w/Parkinson's who lives on her owna nd can move on her own. Treatment Goals Patient/Caregiver Goals Be able to walk without a limp , be able to bend over and picking crew supervisor something w/o pain, be able return to work PT-OP-C Subjective Start: 07/25/20 18:05 Freq: Status: Active Protocol: Document 08/14/20 14:32 SP (Rec: 08/14/20 15:49 SP [id number]) OP-PT Subjective Patient Comments Patient Comments Pt stated saw physician since last tx and pleased with ROM approx 1- 90. Pt stated is able to lift her LLE onto the bed now without using gait belt past 3 days. Pt reported her L ankle swelled more and hard time sleeping after PT then pain sets in the next day . Patient Reported Progress Improving PT-OP-F Manual Assessment Start: 07/25/20 18:05 Freq: Status: Active Protocol: Document 08/07/20 16:04 [facility] (Rec: 08/07/20 16:50 [facility] [id number]) Manual Assessments Soft Tissue Assessment Soft Tissue Mobility Assessment swelling, bruising most ant med and some post in HS & calf PT-OP-G Mobility & Gait Start: 07/25/20 18:05 Freq: Status: Active Protocol: Document 08/07/20 16:04 [facility] (Rec: 08/07/20 16:50 [facility] [id number]) OP Mobility Evaluation Bed Mobility Supine to and from Sit requires self UE assist Transfers Sit to Stand puts leg out in front for sit to stand and uses hands OP Gait Assessment Comments Gait Comments step throught w/FWW w/fwd lean w/WB on LLE PT-OP-K Range of Motion Start: 07/25/20 18:05 Freq: Status: Active Protocol: Document 08/09/20 14:32 SP (Rec: 08/09/20 16:09 SP [id number]) Knee Goniometric Range of Motion Knee Left Flexion Active (degrees) 82 Flexion Passive (degrees) 98 Extension Active (degrees) 5 Comments 82 deg supine HS 98 deg flex AAROM passive ext hang over Tball 5 deg, flush with table supine, PT-OP-M Strength Start: 07/25/20 18:05 Freq: Status: Active Protocol: Document 08/07/20 16:04 [facility] (Rec: 08/07/20 16:50 [facility] [id number]) Hip Strength Hip Manual Muscle Testing Right Flexion (L2) 4 Good Abduction 3+ Fair+ External Rotation 4+ Good+ Internal Rotation 4+ Good+ Left Flexion (L2) 3 Fair Abduction 3 Fair External Rotation 3 Fair Internal Rotation 3 Fair Knee Strength Knee Manual Muscle Testing Right Flexion (S2) 5 Normal Extension (L3) 5 Normal Left Flexion (S2) 3 Fair Extension (L3) 3 Fair Ankle/Foot Strength Ankle and Foot Manual Muscle Testing Right Dorsiflexion (L4) 5 Normal Plantarflexion (S1) 5 Normal Left Dorsiflexion (L4) 5 Normal Plantarflexion (S1) 3+ Fair+ Comments seated PF testing B PT-OP-Q Treatments Start: 07/25/20 18:05 Freq: Status: Active Protocol: Document 08/14/20 14:32 SP (Rec: 08/14/20 15:49 SP [id number]) Cardio Equipment Recumbent Elliptical (Behavioral Recognition Systems) Duration (Minutes) 10 Resistance 0 Seat Position 9 Other AAROM Gym Equipment Shuttle Recovery maye squats Details AROM L knee >90 deg Resistance 25# Shuttle Recovery Platform Stable Reps/Time 2x10 reps Therapeutic Exercises Supine Exercises abd Supine Exercise Name added to HEP Side left Resistance AROM Reps/Minutes x10, x5 knee flexion over Tball Supine Exercise Name pt able to lift LLE up on ball self today Side left Resistance AROM, no contact support Equipment Used 55cm therapy ball Reps/Minutes 2x10 Comments 93 deg Standing Exercises TKE Standing Exercise Name Has been performing on own Side left Resistance AROM into flexion Equipment Used UE support on table Reps/Minutes x5 reps Comments good AROM calf raises Standing Exercise Name added to HEP Side bilateral Resistance AROM Equipment Used contact table Reps/Minutes x10 Comments cued awareness of quad facilitation, stable Gait Training Gait Activity SPC Description forward/ backward stepping Device Used SPC Level of Assistance CGA w/ GB Surface firm Distance/Duration 10 ft f/b laps Treatment Focus 2 pt gait heel toe in mirror Comments 10 min Manual Therapy Treatment Taping K taping Body Location L medial prox tibia Treatment Focus decrease swelling Type of Tape Kinesio Tape Skin Inspection intact, still slight bruising swelling pocket diameter golf ball Comments basket weave PT-OP-R Modalities Start: 07/25/20 18:05 Freq: Status: Active Protocol: Document 08/14/20 14:32 SP (Rec: 08/14/20 15:49 SP [id number]) Hot Pack/Cold Pack Treatment cryocuff Location L knee Patient Position Hooklying Treatment Duration (minutes) 10 Patient Tolerance Good Comments achiness in L knee end time. PT-OP-T Assessment and Plan Start: 07/25/20 18:05 Freq: Status: Active Protocol: Document 08/14/20 14:32 SP (Rec: 08/14/20 15:49 SP [id number]) Physical Therapy Assessment Goals walking Short Term Goal (STG) Pt will be able to amb with good gait mechanics w/SPC for at least 15 min without inc pain over 5/10. STG Duration 09/08/20 Correction Goal (LTG) Pt will be able to amb as needed without AD without inc pain greater than 2/10. 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 STG Duration 09/16/20 Manager Banking Goal (LTG) Pt will be able to return to working without inc pain greater than 3/10 LTG Duration 10/07/20 strength Short Term Goal (STG) Pt will be indep w/ HEP 08/14/20 progressing HEP: SAQ, heel slides, ankle pumps, SLR, seated heel slide, quad set, standing little mini squat with contact support. STG Duration 09/07/20 Correction Goal (LTG) Pt will imrpove LE strength to at least 4+/5 in all planes to show imrpoved stability and strength to return to typical activities. LTG Duration 10/07/20 1 Impairment LEFS 22/80 Short Term Goal (STG) Pt will improve LEFS score to 46 to show improvement in functional ability. STG Duration 09/08/20 Correction Goal (LTG) Pt will improve LEFS score to 60 to show improvement in functional ability. LTG Duration 10/07/20 Assessment Summary Assessment Pt tolerated AAROM biodex, shuttle recovery BLE, LLE over ball AROM with no increase in pain, actually it seems to help loosen up L knee. Assessed 2pt gait using SPC knowing pt stated has been trying at home. Occasional cuing for stabilize trunk, but good L knee flexion and heel toe patterning. Instructed patient can move down to 1 crutch when leaving, good trunk alignment during gait. Will work more with SPC use next tx. Pt had decrease swelling in L ankle but continues to have golfball width size pocket swelling medial proximal tibia, applied basketweave k taping to assist with lymph drainage with education on adverse affects with understanding to remove if experience, otherwise can keep applied until Th appt, it can go through shower. Pt only reported of increased achiness during cyrotherapy with L knee bent over wedge as time passed. Physical Therapy Plan Frequency and Duration Frequency of Treatment 2x/Week Duration of Treatment 2 months Plan of Care Start Date 08/07/20 Plan of Care End Date 10/07/20 Therapeutic Interventions Therapeutic Interventions Aquatic Therapy,Balance Training,Gait Training,Home Exercise Program,Joint Mobilizations,Manual Therapy, Neuromuscular Re-education, Patient/Caregiver Education, Self-Care/Home Management,Soft Tissue Mobilization,Taping, Therapeutic Activities, Therapeutic Exercises Modalities Cold Pack/Ice Massage,Electric Stimulation,Hot Packs, Ultrasound Next Visit Focus/Plan Next Note Type Treatment Note Next Visit Plan Assess response to shuttle press, biodex, LLE knee flexion over Tball, standing calf raises, TKE, K taping medial prox tibia Next tx POC: continue biodex, leg press, continue L knee flexion and post op ex. Gait train using SPC.
--- NOTE | 2020-08-16 15:33 | PT.OTN ---
Current Diagnoses Unilateral primary osteoarthritis, left knee (08/16/20) Difficulty in walking, not elsewhere classified (08/16/20) Weakness (08/16/20) Physical Therapy Treatment Note PT-OP-A Visit Information Start: 07/25/20 18:05 Freq: Status: Active Protocol: Document 08/16/20 14:33 SP (Rec: 08/16/20 15:55 SP [id number]) Out-Patient Physical Therapy Visit Information Visit Information Visit Type Treatment Note Visit Note attended tx, observation. Visit Start Time 14:33 Visit Stop Time 15:33 Total Visit Minutes 60 Visit Number 5 Number of URBAN ANTHROPOLOGIST Visits 3 PT-OP-B Current Condition Start: 07/25/20 18:05 Freq: Status: Active Protocol: Document 08/07/20 16:04 [facility] (Rec: 08/07/20 16:50 [facility] [id number]) Current Condition History of Current Condition Onset Date 08/01/20 Current Complaints L TKA History of Current Condition 08/07-Surgery went well and was able to go home the next day. Has been able to get in/out of bed w/using UEs. Has not showered yet d/t difficulty getting into tub w/shower doors. Pt has been able to get dressed and get socks on herself. It takes her some time, but gets them on. IE:Pt reports pain starting last Apr when she had a pop in the back of her knee and had trouble bearing weight into leg. Pt was off work for a few weeks. Pain has been up and down where someitmes it feels like its getting better and other times can barely move. She has had a couple injections with them helping temporarily only. Now getting L TKA on 08/01/20. Pt got a cane and FWW. Plans to move some things in house so there is more room for her and walker. Her house was origninally made for her mother in law who was handicap. Pt has no XIOMY and is SLH. Pt has tub and normal toilet. 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 Job entails: standing, walking, pushing carts, lifting, and putting stock away. Pt does take care of mother w/Parkinson's who lives on her owna nd can move on her own. Treatment Goals Patient/Caregiver Goals Be able to walk without a limp , be able to bend over and mushroom picker something w/o pain, be able return to work PT-OP-C Subjective Start: 07/25/20 18:05 Freq: Status: Active Protocol: Document 08/16/20 14:33 SP (Rec: 08/16/20 15:55 SP [id number]) OP-PT Subjective Patient Comments Patient Comments Pt stated has been in progressively more pain more the next day 7-11/06 than later in the day but wondering if it's a necessary evil to gaining ROM. I have had a hard time sleeping the days am at PT. PT-OP-F Manual Assessment Start: 07/25/20 18:05 Freq: Status: Active Protocol: Document 08/07/20 16:04 [facility] (Rec: 08/07/20 16:50 [facility] [id number]) Manual Assessments Soft Tissue Assessment Soft Tissue Mobility Assessment swelling, bruising most ant med and some post in HS & calf PT-OP-G Mobility & Gait Start: 07/25/20 18:05 Freq: Status: Active Protocol: Document 08/07/20 16:04 [facility] (Rec: 08/07/20 16:50 [facility] [id number]) OP Mobility Evaluation Bed Mobility Supine to and from Sit requires self UE assist Transfers Sit to Stand puts leg out in front for sit to stand and uses hands OP Gait Assessment Comments Gait Comments step throught w/FWW w/fwd lean w/WB on LLE PT-OP-K Range of Motion Start: 07/25/20 18:05 Freq: Status: Active Protocol: Document 08/09/20 14:32 SP (Rec: 08/09/20 16:09 SP [id number]) Knee Goniometric Range of Motion Knee Left Flexion Active (degrees) 82 Flexion Passive (degrees) 98 Extension Active (degrees) 5 Comments 82 deg supine HS 98 deg flex AAROM passive ext hang over Tball 5 deg, flush with table supine, PT-OP-M Strength Start: 07/25/20 18:05 Freq: Status: Active Protocol: Document 08/07/20 16:04 [facility] (Rec: 08/07/20 16:50 [facility] [id number]) Hip Strength Hip Manual Muscle Testing Right Flexion (L2) 4 Good Abduction 3+ Fair+ External Rotation 4+ Good+ Internal Rotation 4+ Good+ Left Flexion (L2) 3 Fair Abduction 3 Fair External Rotation 3 Fair Internal Rotation 3 Fair Knee Strength Knee Manual Muscle Testing Right Flexion (S2) 5 Normal Extension (L3) 5 Normal Left Flexion (S2) 3 Fair Extension (L3) 3 Fair Ankle/Foot Strength Ankle and Foot Manual Muscle Testing Right Dorsiflexion (L4) 5 Normal Plantarflexion (S1) 5 Normal Left Dorsiflexion (L4) 5 Normal Plantarflexion (S1) 3+ Fair+ Comments seated PF testing B PT-OP-Q Treatments Start: 07/25/20 18:05 Freq: Status: Active Protocol: Document 08/16/20 14:33 SP (Rec: 08/16/20 15:55 SP [id number]) Cardio Equipment Recumbent Elliptical ([employer]yclebank) Duration (Minutes) 10 Resistance 0>1 Seat Position 8 Other AAROM UE/ LE assist Therapeutic Exercises Supine Exercises knee flexion over Tball Supine Exercise Name pt able to lift LLE up on ball self today Side left Resistance AAROM w /use of strap Equipment Used 55cm therapy ball Reps/Minutes 2x10 Comments 95 deg SLR Supine Exercise Name AAROm w/ belt Side left Reps/Minutes 8 - cued, no higher than other knee Comments lag noted approx 3 deg, cued quad facilitation quad set Side left Reps/Minutes 10 sec x10 SAQ Side left Resistance AROM Reps/Minutes x10 Comments cued thigh stays on bolster heel slides Equipment Used AROM w/ little strap Reps/Minutes 3 reps x5 Comments 91 deg Standing Exercises knee flexion Side left Resistance AROM knee and ankle flexion Equipment Used UE support on rail L foot 1st step Reps/Minutes x5 reps Comments good AROM, tightness no pain Manual Therapy Treatment Soft Tissue Mobilization retro grade massage Body Location gastroc, med/lat knee Mobilization Type Myofascial Release Intensity/Depth Superficial Body Position Supine Taping K taping Body Location L medial prox tibia Treatment Focus decrease swelling Type of Tape Kinesio Tape Skin Inspection intact, still slight bruising swelling pocket diameter golf ball Comments basket weave Measurement circumference: -inferior scar 44cm -2cm superior bottom scar 42.5 cm PT-OP-R Modalities Start: 07/25/20 18:05 Freq: Status: Active Protocol: Document 08/16/20 14:33 SP (Rec: 08/16/20 15:55 SP [id number]) Hot Pack/Cold Pack Treatment cryocuff Location L knee Patient Position Hooklying Treatment Duration (minutes) 10 Patient Tolerance Good Comments knee over rolled towel better tolerance/ comfort than over wedge due last tx- better tolerance not achy. PT-OP-T Assessment and Plan Start: 07/25/20 18:05 Freq: Status: Active Protocol: Document 08/16/20 14:33 SP (Rec: 08/16/20 15:55 SP [id number]) Physical Therapy Assessment Goals walking Short Term Goal (STG) Pt will be able to amb with good gait mechanics w/SPC for at least 15 min without inc pain over 08/06. 08/16/20: progressing: able to walk around house maybe 10 min before needs to sit, might be longer at her mom's house, will pay attention over the weekend. STG Duration 09/08/20 Shelter Goal (LTG) Pt will be able to amb as needed without AD without inc pain greater than 2/10. LTG Duration 10/07/20 activities Short Term Goal (STG) Pt will be able to squat down to mushroom picker objects without increased pain. STG Duration 09/16/20 Food And Beverage Order Clerk Goal (LTG) Pt will be able to return to working without inc pain greater than 3/10 LTG Duration 10/07/20 strength Short Term Goal (STG) Pt will be indep w/ HEP 08/14/20 progressing HEP: SAQ, heel slides, ankle pumps, SLR, seated heel slide, quad set, standing little mini squat with contact support, calf raises standing, ROM knee mobility on step. STG Duration 09/07/20 Food And Beverage Order Clerk Goal (LTG) Pt will imrpove LE strength to at least 4+/5 in all planes to show imrpoved stability and strength to return to typical activities. LTG Duration 10/07/20 1 Impairment LEFS 22/80 Short Term Goal (STG) Pt will improve LEFS score to 46 to show improvement in functional ability. STG Duration 09/08/20 Food And Beverage Order Clerk Goal (LTG) Pt will improve LEFS score to 60 to show improvement in functional ability. LTG Duration 10/07/20 Assessment Summary Assessment Didn't get to shuttle recovery today to assess if better response after PT tx recovery. Tx focused on ROM, HEP review , edema mgt. Pt tolerant discomfort at end feel 4-5/10 pain, states eases off return to extended position. Pt gained 5 deg L knee flexion AROM from last tx. Noted decrease in medial superior tibia edema with assist of k taping, reassess next tx. Physical Therapy Plan Frequency and Duration Frequency of Treatment 2x/Week Duration of Treatment 2 months Plan of Care Start Date 08/07/20 Plan of Care End Date 10/07/20 Therapeutic Interventions Therapeutic Interventions Aquatic Therapy,Balance Training,Gait Training,Home Exercise Program,Joint Mobilizations,Manual Therapy, Neuromuscular Re-education, Patient/Caregiver Education, Self-Care/Home Management,Soft Tissue Mobilization,Taping, Therapeutic Activities, Therapeutic Exercises Modalities Cold Pack/Ice Massage,Electric Stimulation,Hot Packs, Ultrasound Next Visit Focus/Plan Next Note Type Treatment Note Next Visit Plan Assess response to biodex, LLE knee flexion over Tball, standing calf raises, standing AAROM on step, K taping medial prox tibia for edema, cryocuff. Next tx POC: continue biodex, leg press, continue L knee flexion, calf raises and review post op ex. Gait train using SPC.
--- NOTE | 2020-08-20 17:49 | PT.OTN ---
Current Diagnoses Unilateral primary osteoarthritis, left knee (08/20/20) Difficulty in walking, not elsewhere classified (08/20/20) Weakness (08/20/20) Physical Therapy Treatment Note PT-OP-A Visit Information Start: 07/25/20 18:05 Freq: Status: Active Protocol: Document 08/20/20 16:50 [facility] (Rec: 08/20/20 17:43 [facility] [id number]) Out-Patient Physical Therapy Visit Information Visit Information Visit Type Treatment Note Visit Note attended tx, observation. Visit Start Time 16:46 Visit Stop Time 17:43 Total Visit Minutes 57 Visit Number 6 Number of CLINICAL SERVICES SPECIALIST Visits 0 PT-OP-B Current Condition Start: 07/25/20 18:05 Freq: Status: Active Protocol: Document 08/07/20 16:04 [facility] (Rec: 08/07/20 16:50 [facility] [id number]) Current Condition History of Current Condition Onset Date 08/01/20 Current Complaints L TKA History of Current Condition 08/07-Surgery went well and was able to go home the next day. Has been able to get in/out of bed w/using UEs. Has not showered yet d/t difficulty getting into tub w/shower doors. Pt has been able to get dressed and get socks on herself. It takes her some time, but gets them on. IE:Pt reports pain starting last Apr when she had a pop in the back of her knee and had trouble bearing weight into leg. Pt was off work for a few weeks. Pain has been up and down where someitmes it feels like its getting better and other times can barely move. She has had a couple injections with them helping temporarily only. Now getting L TKA on 08/01/20. Pt got a cane and FWW. Plans to move some things in house so there is more room for her and walker. Her house was origninally made for her mother in law who was handicap. Pt has no XIOMY and is SLH. Pt has tub and normal toilet. 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 Job entails: standing, walking, pushing carts, lifting, and putting stock away. Pt does take care of mother w/Parkinson's who lives on her owna nd can move on her own. Treatment Goals Patient/Caregiver Goals Be able to walk without a limp , be able to bend over and seed cone picker something w/o pain, be able return to work PT-OP-C Subjective Start: 07/25/20 18:05 Freq: Status: Active Protocol: Document 08/20/20 16:50 [facility] (Rec: 08/20/20 17:43 [facility] [id number]) OP-PT Subjective Patient Comments Patient Comments Pt reprots compliance with exercises. Notes she can lift her leg better PT-OP-F Manual Assessment Start: 07/25/20 18:05 Freq: Status: Active Protocol: Document 08/07/20 16:04 [facility] (Rec: 08/07/20 16:50 [facility] [id number]) Manual Assessments Soft Tissue Assessment Soft Tissue Mobility Assessment swelling, bruising most ant med and some post in HS & calf PT-OP-G Mobility & Gait Start: 07/25/20 18:05 Freq: Status: Active Protocol: Document 08/07/20 16:04 [facility] (Rec: 08/07/20 16:50 [facility] [id number]) OP Mobility Evaluation Bed Mobility Supine to and from Sit requires self UE assist Transfers Sit to Stand puts leg out in front for sit to stand and uses hands OP Gait Assessment Comments Gait Comments step throught w/FWW w/fwd lean w/WB on LLE PT-OP-K Range of Motion Start: 07/25/20 18:05 Freq: Status: Active Protocol: Document 08/09/20 14:32 [facility] (Rec: 08/09/20 16:09 SP [id number]) Knee Goniometric Range of Motion Knee Left Flexion Active (degrees) 82 Flexion Passive (degrees) 98 Extension Active (degrees) 5 Comments 82 deg supine HS 98 deg flex AAROM passive ext hang over Tball 5 deg, flush with table supine, PT-OP-M Strength Start: 07/25/20 18:05 Freq: Status: Active Protocol: Document 08/07/20 16:04 [facility] (Rec: 08/07/20 16:50 [facility] [id number]) Hip Strength Hip Manual Muscle Testing Right Flexion (L2) 4 Good Abduction 3+ Fair+ External Rotation 4+ Good+ Internal Rotation 4+ Good+ Left Flexion (L2) 3 Fair Abduction 3 Fair External Rotation 3 Fair Internal Rotation 3 Fair Knee Strength Knee Manual Muscle Testing Right Flexion (S2) 5 Normal Extension (L3) 5 Normal Left Flexion (S2) 3 Fair Extension (L3) 3 Fair Ankle/Foot Strength Ankle and Foot Manual Muscle Testing Right Dorsiflexion (L4) 5 Normal Plantarflexion (S1) 5 Normal Left Dorsiflexion (L4) 5 Normal Plantarflexion (S1) 3+ Fair+ Comments seated PF testing B PT-OP-Q Treatments Start: 07/25/20 18:05 Freq: Status: Active Protocol: Document 08/20/20 16:50 [facility] (Rec: 08/20/20 17:43 [facility] [id number]) Cardio Equipment Recumbent Elliptical (Biodex) Duration (Minutes) 8 Resistance 1-3 Seat Position 7 Other AAROM UE/ LE assist Therapeutic Exercises Supine Exercises SLR Supine Exercise Name no belt Side left Reps/Minutes 10 Comments focus on no ext lag Sitting Exercises LAQ Side left Reps/Minutes 5 sec x10 Standing Exercises sit to stand Standing Exercise Name w/o hands Side bilateral Reps/Minutes 5 calf raises Standing Exercise Name added to HEP Side bilateral Resistance AROM Equipment Used contact bar Reps/Minutes 2x10 Comments cued awareness of quad facilitation, stable Gait Training Gait Activity wt shifts Description fwd B walking Description in mirror to work on gait 1x Manual Therapy Treatment Soft Tissue Mobilization calf Body Location L Mobilization Type Rolling Intensity/Depth Moderate thigh Body Location HS Mobilization Type Rolling Intensity/Depth Moderate Body Position Hooklying PT-OP-R Modalities Start: 07/25/20 18:05 Freq: Status: Active Protocol: Document 08/20/20 16:50 [facility] (Rec: 08/20/20 17:49 [facility] [id number]) Electric Stimulation Electric Stimulation Interferential Current (IFC) Body Location L knee Duration (Minutes) 15 Intensity 27 Combined With Heat/Cold Cold Pack Comments started hooklying adjusted to knee ext w/2 pillows under lower leg PT-OP-T Assessment and Plan Start: 07/25/20 18:05 Freq: Status: Active Protocol: Document 08/20/20 16:50 [facility] (Rec: 08/20/20 17:43 [facility] [id number]) Physical Therapy Assessment Goals walking Short Term Goal (STG) Pt will be able to amb with good gait mechanics w/SPC for at least 15 min without inc pain over 5/10. 5/20/21: progressing: able to walk around house maybe 10 min before needs to sit, might be longer at her mom's house, will pay attention over the weekend. STG Duration 09/08/20 Child Care Group Leader Goal (LTG) Pt will be able to amb as needed without AD without inc pain greater than 2/10. LTG Duration 10/07/20 activities Short Term Goal (STG) Pt will be able to squat down to seed cone picker objects without increased pain. STG Duration 09/16/20 [facility] Goal (LTG) Pt will be able to return to working without inc pain greater than 3/10 LTG Duration 10/07/20 strength Short Term Goal (STG) Pt will be indep w/ HEP 08/14/20 progressing HEP: SAQ, heel slides, ankle pumps, SLR, seated heel slide, quad set, standing little mini squat with contact support, calf raises standing, ROM knee mobility on step. STG Duration 09/07/20 [facility] Goal (LTG) Pt will imrpove LE strength to at least 4+/5 in all planes to show imrpoved stability and strength to return to typical activities. LTG Duration 10/07/20 1 Impairment LEFS 22/80 Short Term Goal (STG) Pt will improve LEFS score to 46 to show improvement in functional ability. STG Duration 09/08/20 [facility] Goal (LTG) Pt will improve LEFS score to 60 to show improvement in functional ability. LTG Duration 10/07/20 Assessment Summary Assessment Pt can now do SLR without belt assist well. She was able to tolerate all exercises without excessive inc in pain. Able to improve gait in mirror. Attempted use of estim today to try to dec amt of pain pt is in after PT. Physical Therapy Plan Frequency and Duration Frequency of Treatment 2x/Week Duration of Treatment 2 months Plan of Care Start Date 08/07/20 Plan of Care End Date 10/07/20 Next Visit Focus/Plan Next Note Type Treatment Note Next Visit Plan cont to work on progression of range & work on quad and glute strengthening
--- NOTE | 2020-08-23 15:26 | PT.OTN ---
Current Diagnoses Unilateral primary osteoarthritis, left knee (08/23/20) Difficulty in walking, not elsewhere classified (08/23/20) Weakness (08/23/20) Physical Therapy Treatment Note PT-OP-A Visit Information Start: 07/25/20 18:05 Freq: Status: Active Protocol: Document 08/23/20 14:32 [facility] (Rec: 08/23/20 15:34 [facility] [id number]) Out-Patient Physical Therapy Visit Information Visit Information Visit Type Treatment Note Visit Start Time 14:32 Visit Stop Time 15:26 Total Visit Minutes 54 Visit Number 7 Number of CHUTE TAPPER Visits 1 PT-OP-B Current Condition Start: 07/25/20 18:05 Freq: Status: Active Protocol: Document 08/07/20 16:04 [facility] (Rec: 08/07/20 16:50 [facility] [id number]) Current Condition History of Current Condition Onset Date 08/01/20 Current Complaints L TKA History of Current Condition 08/07-Surgery went well and was able to go home the next day. Has been able to get in/out of bed w/using UEs. Has not showered yet d/t difficulty getting into tub w/shower doors. Pt has been able to get dressed and get socks on herself. It takes her some time, but gets them on. IE:Pt reports pain starting last Apr when she had a pop in the back of her knee and had trouble bearing weight into leg. Pt was off work for a few weeks. Pain has been up and down where someitmes it feels like its getting better and other times can barely move. She has had a couple injections with them helping temporarily only. Now getting L TKA on 08/01/20. Pt got a cane and FWW. Plans to move some things in house so there is more room for her and walker. Her house was origninally made for her mother in law who was handicap. Pt has no XIOMY and is SLH. Pt has tub and normal toilet. 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 Job entails: standing, walking, pushing carts, lifting, and putting stock away. Pt does take care of mother w/Parkinson's who lives on her owna nd can move on her own. Treatment Goals Patient/Caregiver Goals Be able to walk without a limp , be able to bend over and hot die picker something w/o pain, be able return to work PT-OP-C Subjective Start: 07/25/20 18:05 Freq: Status: Active Protocol: Document 08/23/20 14:32 [facility] (Rec: 08/23/20 15:34 SP [id number]) OP-PT Subjective Patient Comments Patient Comments Pt stated was able to walk around [facility] over the weekend pushing the cart about 20 min with little pain more tiring and need sit rest. Also has been walking up/down street about 10 mins at time using SPC with noted more uncomfortable that pain and goes away after sit rest. PT-OP-F Manual Assessment Start: 07/25/20 18:05 Freq: Status: Active Protocol: Document 08/07/20 16:04 [facility] (Rec: 08/07/20 16:50 [facility] [id number]) Manual Assessments Soft Tissue Assessment Soft Tissue Mobility Assessment swelling, bruising most ant med and some post in HS & calf PT-OP-G Mobility & Gait Start: 07/25/20 18:05 Freq: Status: Active Protocol: Document 08/07/20 16:04 [facility] (Rec: 08/07/20 16:50 [facility] [id number]) OP Mobility Evaluation Bed Mobility Supine to and from Sit requires self UE assist Transfers Sit to Stand puts leg out in front for sit to stand and uses hands OP Gait Assessment Comments Gait Comments step throught w/FWW w/fwd lean w/WB on LLE PT-OP-K Range of Motion Start: 07/25/20 18:05 Freq: Status: Active Protocol: Document 08/09/20 14:32 [facility] (Rec: 08/09/20 16:09 SP [id number]) Knee Goniometric Range of Motion Knee Left Flexion Active (degrees) 82 Flexion Passive (degrees) 98 Extension Active (degrees) 5 Comments 82 deg supine HS 98 deg flex AAROM passive ext hang over Tball 5 deg, flush with table supine, PT-OP-M Strength Start: 07/25/20 18:05 Freq: Status: Active Protocol: Document 08/07/20 16:04 [facility] (Rec: 08/07/20 16:50 [facility] [id number]) Hip Strength Hip Manual Muscle Testing Right Flexion (L2) 4 Good Abduction 3+ Fair+ External Rotation 4+ Good+ Internal Rotation 4+ Good+ Left Flexion (L2) 3 Fair Abduction 3 Fair External Rotation 3 Fair Internal Rotation 3 Fair Knee Strength Knee Manual Muscle Testing Right Flexion (S2) 5 Normal Extension (L3) 5 Normal Left Flexion (S2) 3 Fair Extension (L3) 3 Fair Ankle/Foot Strength Ankle and Foot Manual Muscle Testing Right Dorsiflexion (L4) 5 Normal Plantarflexion (S1) 5 Normal Left Dorsiflexion (L4) 5 Normal Plantarflexion (S1) 3+ Fair+ Comments seated PF testing B PT-OP-Q Treatments Start: 07/25/20 18:05 Freq: Status: Active Protocol: Document 08/23/20 14:32 [facility] (Rec: 08/23/20 15:34 SP [id number]) Cardio Equipment Recumbent Elliptical (BiodISVS) Duration (Minutes) 8 Resistance 1>3 Seat Position 7 Other AAROM UE/ LE assist, cued 25- 30 RPM, total step: 521 Therapeutic Exercises Supine Exercises SLR Supine Exercise Name no belt Side left Resistance AROM (stated 10 reps 2-3x/day) Reps/Minutes 10 Comments good focus on no ext lag Sitting Exercises LAQ Side left Reps/Minutes 5 sec x10 Comments cued slow and hold quad facilitation, trunk upright still Standing Exercises sit to stand Standing Exercise Name w/o hands Side bilateral Equipment Used 20 elevated table Reps/Minutes 5 reps in 20 sec at Comments cued slow eccentric control no flop TKE Standing Exercise Name added to HEP Side left Equipment Used Tb #1 Reps/Minutes x10 calf raises Standing Exercise Name HEP Side bilateral Resistance AROM Equipment Used floor > off bottom step Reps/Minutes x10, x15 Comments cued awareness of quad facilitation, stable and good calf stretch PT-OP-R Modalities Start: 07/25/20 18:05 Freq: Status: Active Protocol: Document 08/23/20 14:32 [facility] (Rec: 08/23/20 15:34 SP [id number]) Electric Stimulation Electric Stimulation Interferential Current (IFC) Body Location L knee Duration (Minutes) 15 Intensity 24 Combined With Heat/Cold Cold Pack Comments supine, rolled towel under knee. PT-OP-T Assessment and Plan Start: 07/25/20 18:05 Freq: Status: Active Protocol: Document 08/23/20 14:32 SP (Rec: 08/23/20 15:34 SP [id number]) Physical Therapy Assessment Goals walking Short Term Goal (STG) Pt will be able to amb with good gait mechanics w/SPC for at least 15 min without inc pain over 08/06. 08/16/20: progressing: able to walk around house maybe 10 min before needs to sit, might be longer at her mom's house, will pay attention over the weekend. 08/23/20: progressing is able walk neighborhood street using SPC about 10 min before needs go and sit down more uncomfort than pain and able to walk around [employer] 20 min pushing cart BUE before needs sit rest. STG Duration 09/08/20 [facility] Goal (LTG) Pt will be able to amb as needed without AD without inc pain greater than 2/10. LTG Duration 10/07/20 activities Short Term Goal (STG) Pt will be able to squat down to hot die picker objects without increased pain. STG Duration 09/16/20 Flotation Tender Helper Goal (LTG) Pt will be able to return to working without inc pain greater than 3/10 LTG Duration 10/07/20 strength Short Term Goal (STG) Pt will be indep w/ HEP 08/14/20 progressing HEP: SAQ, heel slides, ankle pumps, SLR, seated heel slide, quad set, standing little mini squat with contact support, calf raises standing floor/ step, LAQ, ROM knee mobility on step . STG Duration 09/07/20 Flotation Tender Helper Goal (LTG) Pt will imrpove LE strength to at least 4+/5 in all planes to show imrpoved stability and strength to return to typical activities. LTG Duration 10/07/20 1 Impairment LEFS 22/80 Short Term Goal (STG) Pt will improve LEFS score to 46 to show improvement in functional ability. STG Duration 09/08/20 Flotation Tender Helper Goal (LTG) Pt will improve LEFS score to 60 to show improvement in functional ability. LTG Duration 10/07/20 Assessment Summary Assessment AROM L knee:112* PROM L knee: 118* Pt reported slow little increase in pain to L knee during ther ex an gait today but only 5/10. Cuing for trunk alignment and level pelvic during gait in mirror with improvements self correction, education for walks at home. Pt welcoming to IF w/ cold modality at end of tx. Pt reported feels alot better now not pain scale quantified post modalities. Improvement in decrease RUE WB on SPC and level pelvis leaving. Physical Therapy Plan Frequency and Duration Frequency of Treatment 2x/Week Duration of Treatment 2 months Plan of Care Start Date 08/07/20 Plan of Care End Date 10/07/20 Therapeutic Interventions Therapeutic Interventions Aquatic Therapy,Balance Training,Gait Training,Home Exercise Program,Joint Mobilizations,Manual Therapy, Neuromuscular Re-education, Patient/Caregiver Education, Self-Care/Home Management,Soft Tissue Mobilization,Taping, Therapeutic Activities, Therapeutic Exercises Modalities Cold Pack/Ice Massage,Electric Stimulation,Hot Packs, Ultrasound Next Visit Focus/Plan Next Note Type Treatment Note Next Visit Plan cont to work on progression of range & work on quad and glute strengthening
--- NOTE | 2020-08-28 15:24 | PT.OTN ---
Current Diagnoses Unilateral primary osteoarthritis, left knee (08/28/20) Difficulty in walking, not elsewhere classified (08/28/20) Weakness (08/28/20) Physical Therapy Treatment Note PT-OP-A Visit Information Start: 07/25/20 18:05 Freq: Status: Active Protocol: Document 08/28/20 14:30 SP (Rec: 08/28/20 15:35 SP [id number]) Out-Patient Physical Therapy Visit Information Visit Information Visit Type Treatment Note Visit Note Pt getting her 2nd covid shot 09/07 at 2, maybe little late. Visit Start Time 14:30 Visit Stop Time 15:24 Total Visit Minutes 54 Visit Number 8 Number of RETANNER Visits 2 PT-OP-B Current Condition Start: 07/25/20 18:05 Freq: Status: Active Protocol: Document 08/07/20 16:04 [facility] (Rec: 08/07/20 16:50 [facility] [id number]) Current Condition History of Current Condition Onset Date 08/01/20 Current Complaints L TKA History of Current Condition 08/07-Surgery went well and was able to go home the next day. Has been able to get in/out of bed w/using UEs. Has not showered yet d/t difficulty getting into tub w/shower doors. Pt has been able to get dressed and get socks on herself. It takes her some time, but gets them on. IE:Pt reports pain starting last Apr when she had a pop in the back of her knee and had trouble bearing weight into leg. Pt was off work for a few weeks. Pain has been up and down where someitmes it feels like its getting better and other times can barely move. She has had a couple injections with them helping temporarily only. Now getting L TKA on 08/01/20. Pt got a cane and FWW. Plans to move some things in house so there is more room for her and walker. Her house was origninally made for her mother in law who was handicap. Pt has no XIOMY and is SLH. Pt has tub and normal toilet. 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 Job entails: standing, walking, pushing carts, lifting, and putting stock away. Pt does take care of mother w/Parkinson's who lives on her owna nd can move on her own. Treatment Goals Patient/Caregiver Goals Be able to walk without a limp , be able to bend over and fiber picker something w/o pain, be able return to work PT-OP-C Subjective Start: 07/25/20 18:05 Freq: Status: Active Protocol: Document 08/28/20 14:30 SP (Rec: 08/28/20 15:35 SP [id number]) OP-PT Subjective Patient Comments Patient Comments Pt arrived antalgic gait, no SPC today. She stated compliant with HEP. Pt stated at end of tx has 14 ft butch that wants to work on getting in/ out of, usually 1 step from dock to manage w/ out rail. PT-OP-F Manual Assessment Start: 07/25/20 18:05 Freq: Status: Active Protocol: Document 08/07/20 16:04 [facility] (Rec: 08/07/20 16:50 [facility] [id number]) Manual Assessments Soft Tissue Assessment Soft Tissue Mobility Assessment swelling, bruising most ant med and some post in HS & calf PT-OP-G Mobility & Gait Start: 07/25/20 18:05 Freq: Status: Active Protocol: Document 08/07/20 16:04 [facility] (Rec: 08/07/20 16:50 [facility] [id number]) OP Mobility Evaluation Bed Mobility Supine to and from Sit requires self UE assist Transfers Sit to Stand puts leg out in front for sit to stand and uses hands OP Gait Assessment Comments Gait Comments step throught w/FWW w/fwd lean w/WB on LLE PT-OP-K Range of Motion Start: 07/25/20 18:05 Freq: Status: Active Protocol: Document 08/09/20 14:32 SP (Rec: 08/09/20 16:09 SP [id number]) Knee Goniometric Range of Motion Knee Left Flexion Active (degrees) 82 Flexion Passive (degrees) 98 Extension Active (degrees) 5 Comments 82 deg supine HS 98 deg flex AAROM passive ext hang over Tball 5 deg, flush with table supine, PT-OP-M Strength Start: 07/25/20 18:05 Freq: Status: Active Protocol: Document 08/07/20 16:04 [facility] (Rec: 08/07/20 16:50 [facility] [id number]) Hip Strength Hip Manual Muscle Testing Right Flexion (L2) 4 Good Abduction 3+ Fair+ External Rotation 4+ Good+ Internal Rotation 4+ Good+ Left Flexion (L2) 3 Fair Abduction 3 Fair External Rotation 3 Fair Internal Rotation 3 Fair Knee Strength Knee Manual Muscle Testing Right Flexion (S2) 5 Normal Extension (L3) 5 Normal Left Flexion (S2) 3 Fair Extension (L3) 3 Fair Ankle/Foot Strength Ankle and Foot Manual Muscle Testing Right Dorsiflexion (L4) 5 Normal Plantarflexion (S1) 5 Normal Left Dorsiflexion (L4) 5 Normal Plantarflexion (S1) 3+ Fair+ Comments seated PF testing B PT-OP-Q Treatments Start: 07/25/20 18:05 Freq: Status: Active Protocol: Document 08/28/20 14:30 SP (Rec: 08/28/20 15:35 SP [id number]) Cardio Equipment Recumbent Elliptical (Plaxica) Duration (Minutes) 8 Resistance 4 Seat Position 7 Other AAROM UE/ LE assist, cued 35- 45 RPM, total step: 624 Gym Equipment Shuttle Recovery unilateral squat Details alternate LEs Resistance 25# Shuttle Recovery Platform Stable Reps/Time x10 maye squats Details AROM L knee >90 deg Resistance 37# Shuttle Recovery Platform Stable Reps/Time 2x10 reps Therapeutic Exercises Supine Exercises knee flexion over Tball Supine Exercise Name pt able to lift LLE up on ball self today Side left Resistance AAROM w /use of strap Equipment Used 55cm therapy ball, w/strap Reps/Minutes 2x10 Comments 118-120* (not as effective), try sitting on plinth,65 cm over ball next tx. SLR Supine Exercise Name no belt Side left Resistance AROM Reps/Minutes 10 Comments no lag, tiring Standing Exercises sit to stand Standing Exercise Name w/o hands Side bilateral Equipment Used 18 chair Reps/Minutes x8 reps Comments cued slow eccentric control no flop, feet under, posterior chain facil. knee flexion Standing Exercise Name HS curl Side left Resistance AROM knee and ankle flexion Equipment Used UE support on rail Reps/Minutes x10 Comments good AROM, stiffness no pain calf raises Standing Exercise Name HEP Side bilateral Resistance AROM Equipment Used floor > off bottom step Reps/Minutes x10, x15 Comments cued awareness of quad facilitation, stable and good calf stretch Gait Training Gait Activity walking Description forward/backward/side Device Used 0 Level of Assistance S Surface firm Distance/Duration 20 ft Treatment Focus level Comments in mirror level shld/ pelvis/ soft knee PT-OP-R Modalities Start: 07/25/20 18:05 Freq: Status: Active Protocol: Document 08/28/20 14:30 SP (Rec: 08/28/20 15:35 SP [id number]) Hot Pack/Cold Pack Treatment cryocuff Location L knee Patient Position Hooklying Treatment Duration (minutes) 10 Patient Tolerance Good Comments rolled towel under knee PT-OP-T Assessment and Plan Start: 07/25/20 18:05 Freq: Status: Active Protocol: Document 08/28/20 14:30 SP (Rec: 08/28/20 15:35 SP [id number]) Physical Therapy Assessment Goals walking Short Term Goal (STG) Pt will be able to amb with good gait mechanics w/SPC for at least 15 min without inc pain over 08/06. 08/16/20: progressing: able to walk around house maybe 10 min before needs to sit, might be longer at her mom's house, will pay attention over the weekend. 08/23/20: progressing is able walk neighborhood street using SPC about 10 min before needs go and sit down more uncomfort than pain and able to walk around [employer] 20 min pushing cart BUE before needs sit rest. STG Duration 09/08/20 Half-Way Goal (LTG) Pt will be able to amb as needed without AD without inc pain greater than 2/10. LTG Duration 10/07/20 activities Short Term Goal (STG) Pt will be able to squat down to fiber picker objects without increased pain. STG Duration 09/16/20 Half-Way Goal (LTG) Pt will be able to return to working without inc pain greater than 3/10 LTG Duration 10/07/20 strength Short Term Goal (STG) Pt will be indep w/ HEP 08/14/20 progressing HEP: SAQ, heel slides, ankle pumps, SLR, seated heel slide, quad set, standing little mini squat with contact support, calf raises standing floor, LAQ, ROM knee mobility on step, hs curl standing. STG Duration 09/07/20 Chemical Instrumentation Officer Goal (LTG) Pt will imrpove LE strength to at least 4+/5 in all planes to show imrpoved stability and strength to return to typical activities. LTG Duration 10/07/20 1 Impairment LEFS 22/80 Short Term Goal (STG) Pt will improve LEFS score to 46 to show improvement in functional ability. STG Duration 09/08/20 Chemical Instrumentation Officer Goal (LTG) Pt will improve LEFS score to 60 to show improvement in functional ability. LTG Duration 10/07/20 Assessment Summary Assessment Pt stated felt little more discomfort in L knee with increased resistance on biodex today. Good response to added SL shuttle squat 25#. L knee ROM reassessment. AROM 122 * heel slide PROM 125* heel slide on table. Pt improved trunk alignment and quad/ glut facilitation during gait in mirror today and leaving post education on pt awareness of level pelvis w / soft L knee midstance. Physical Therapy Plan Frequency and Duration Frequency of Treatment 2x/Week Duration of Treatment 2 months Plan of Care Start Date 08/07/20 Plan of Care End Date 10/07/20 Therapeutic Interventions Therapeutic Interventions Aquatic Therapy,Balance Training,Gait Training,Home Exercise Program,Joint Mobilizations,Manual Therapy, Neuromuscular Re-education, Patient/Caregiver Education, Self-Care/Home Management,Soft Tissue Mobilization,Taping, Therapeutic Activities, Therapeutic Exercises Modalities Cold Pack/Ice Massage,Electric Stimulation,Hot Packs, Ultrasound Next Visit Focus/Plan Next Note Type Treatment Note Next Visit Plan cont to work on progression of range & work on quad and glute strengthening
--- NOTE | 2020-08-30 15:22 | PT.OTN ---
Current Diagnoses Unilateral primary osteoarthritis, left knee (08/30/20) Difficulty in walking, not elsewhere classified (08/30/20) Weakness (08/30/20) Physical Therapy Treatment Note PT-OP-A Visit Information Start: 07/25/20 18:05 Freq: Status: Active Protocol: Document 08/30/20 14:35 SP (Rec: 08/30/20 15:44 SP [id number]) Out-Patient Physical Therapy Visit Information Visit Information Visit Type Treatment Note Visit Note Pt's and daughter ( also a pt- arrived early for her PT appt) attended tx. Visit Start Time 14:35 Visit Stop Time 15:22 Total Visit Minutes 47 Visit Number 9 Number of BOTTOMER OPERATOR Visits 3 PT-OP-B Current Condition Start: 07/25/20 18:05 Freq: Status: Active Protocol: Document 08/07/20 16:04 [facility] (Rec: 08/07/20 16:50 [facility] [id number]) Current Condition History of Current Condition Onset Date 08/01/20 Current Complaints L TKA History of Current Condition 08/07-Surgery went well and was able to go home the next day. Has been able to get in/out of bed w/using UEs. Has not showered yet d/t difficulty getting into tub w/shower doors. Pt has been able to get dressed and get socks on herself. It takes her some time, but gets them on. IE:Pt reports pain starting last Apr when she had a pop in the back of her knee and had trouble bearing weight into leg. Pt was off work for a few weeks. Pain has been up and down where someitmes it feels like its getting better and other times can barely move. She has had a couple injections with them helping temporarily only. Now getting L TKA on 08/01/20. Pt got a cane and FWW. Plans to move some things in house so there is more room for her and walker. Her house was origninally made for her mother in law who was handicap. Pt has no XIOMY and is SLH. Pt has tub and normal toilet. 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 Job entails: standing, walking, pushing carts, lifting, and putting stock away. Pt does take care of mother w/Parkinson's who lives on her owna nd can move on her own. Treatment Goals Patient/Caregiver Goals Be able to walk without a limp , be able to bend over and chicken picker something w/o pain, be able return to work PT-OP-C Subjective Start: 07/25/20 18:05 Freq: Status: Active Protocol: Document 08/30/20 14:35 SP (Rec: 08/30/20 15:44 SP [id number]) OP-PT Subjective Patient Comments Patient Comments Pt reported is able to sleep through the night, walk 20-30 min with cane anymore out in neighborhood, trying to walk normal. PT-OP-F Manual Assessment Start: 07/25/20 18:05 Freq: Status: Active Protocol: Document 08/07/20 16:04 [facility] (Rec: 08/07/20 16:50 [facility] [id number]) Manual Assessments Soft Tissue Assessment Soft Tissue Mobility Assessment swelling, bruising most ant med and some post in HS & calf PT-OP-G Mobility & Gait Start: 07/25/20 18:05 Freq: Status: Active Protocol: Document 08/07/20 16:04 [facility] (Rec: 08/07/20 16:50 [facility] [id number]) OP Mobility Evaluation Bed Mobility Supine to and from Sit requires self UE assist Transfers Sit to Stand puts leg out in front for sit to stand and uses hands OP Gait Assessment Comments Gait Comments step throught w/FWW w/fwd lean w/WB on LLE PT-OP-K Range of Motion Start: 07/25/20 18:05 Freq: Status: Active Protocol: Document 08/09/20 14:32 SP (Rec: 08/09/20 16:09 SP [id number]) Knee Goniometric Range of Motion Knee Left Flexion Active (degrees) 82 Flexion Passive (degrees) 98 Extension Active (degrees) 5 Comments 82 deg supine HS 98 deg flex AAROM passive ext hang over Tball 5 deg, flush with table supine, PT-OP-M Strength Start: 07/25/20 18:05 Freq: Status: Active Protocol: Document 08/07/20 16:04 [facility] (Rec: 08/07/20 16:50 [facility] [id number]) Hip Strength Hip Manual Muscle Testing Right Flexion (L2) 4 Good Abduction 3+ Fair+ External Rotation 4+ Good+ Internal Rotation 4+ Good+ Left Flexion (L2) 3 Fair Abduction 3 Fair External Rotation 3 Fair Internal Rotation 3 Fair Knee Strength Knee Manual Muscle Testing Right Flexion (S2) 5 Normal Extension (L3) 5 Normal Left Flexion (S2) 3 Fair Extension (L3) 3 Fair Ankle/Foot Strength Ankle and Foot Manual Muscle Testing Right Dorsiflexion (L4) 5 Normal Plantarflexion (S1) 5 Normal Left Dorsiflexion (L4) 5 Normal Plantarflexion (S1) 3+ Fair+ Comments seated PF testing B PT-OP-Q Treatments Start: 07/25/20 18:05 Freq: Status: Active Protocol: Document 08/30/20 14:35 SP (Rec: 08/30/20 15:44 SP [id number]) Cardio Equipment Recumbent Bicycle Duration (Minutes) 6 Resistance 4 Seat Position 6 Other miles Gym Equipment Shuttle Balance red Details WBOS, NBOS Comments 1. wt shift f/b 2. head turns Therapeutic Exercises Sitting Exercises LAQ Side left Reps/Minutes 5 sec x5 Comments good control knee flex Sitting Exercise Name HS curls- added to HEP Side left Resistance Tb #1 Reps/Minutes 2x10 Comments cued slow eccentric control Standing Exercises sit to stand Standing Exercise Name w/o hands Side bilateral Equipment Used 18 chair Reps/Minutes 8 reps 30 sec Comments good slow eccentric control TKE Standing Exercise Name Reivew HEP Side left Equipment Used Tb #1> #4 Reps/Minutes x10 each resistance Comments Pretty easy so discontinued Gait Training Gait Activity 6MWT Device Used 0 Level of Assistance S Surface firm Distance/Duration 955ft Treatment Focus level pelvis and trunk alignment Comments cued tall posture, quad/ glut facilitation, level pelvis Manual Therapy Treatment Soft Tissue Mobilization scar mob Mobilization Type Other Intensity/Depth Moderate Body Position seated Comments good tolerance Joint Mobilizations patella mob Direction L Grade II Body Position seated Reps/Duration 1 min Comments sup/inf/ med/ lat Neuro Re-Education Treatment Balance Activities obstacle course Surface uneven Equipment hurdles, oval cushions,balance beam Reps/Duration step over step x 4 laps Comments CG- Min PT-OP-R Modalities Start: 07/25/20 18:05 Freq: Status: Active Protocol: Document 08/28/20 14:30 SP (Rec: 08/28/20 15:35 SP [id number]) Hot Pack/Cold Pack Treatment cryocuff Location L knee Patient Position Hooklying Treatment Duration (minutes) 10 Patient Tolerance Good Comments rolled towel under knee PT-OP-T Assessment and Plan Start: 07/25/20 18:05 Freq: Status: Active Protocol: Document 08/30/20 14:35 SP (Rec: 08/30/20 15:44 SP [id number]) Physical Therapy Assessment Goals walking Short Term Goal (STG) Pt will be able to amb with good gait mechanics w/SPC for at least 15 min without inc pain over 08/06. 08/16/20: progressing: able to walk around house maybe 10 min before needs to sit, might be longer at her mom's house, will pay attention over the weekend. 08/23/20: progressing is able walk neighborhood street using SPC about 10 min before needs go and sit down more uncomfort than pain and able to walk around [employer] 20 min pushing cart BUE before needs sit rest. 08/30/20: Goal met: pt reported able to walk 20-30 min without cane on neighborhood [address] with only occasional brief twinge pain under patella. STG Duration 09/08/20 Goal MET Gas Burner Operator Goal (LTG) Pt will be able to amb as needed without AD without inc pain greater than 2/10. LTG Duration 10/07/20 activities Short Term Goal (STG) Pt will be able to squat down to chicken picker objects without increased pain. 08/30/20: Goal met. Pt is able to chicken picker cones off floor brief small pain sub patella, gone after manual scar and patell mob. STG Duration 09/16/20 GOAL MET Long-Term Goal (LTG) Pt will be able to return to working without inc pain greater than 3/10 LTG Duration 10/07/20 strength Short Term Goal (STG) Pt will be indep w/ HEP 08/30/20: progressing HEP: heel slides, SLR, seated hs curls Tb #1, sit<>stands on UE support, calf raises, LAQ, ROM knee mobility on step, hs curl standing. STG Duration 09/07/20 Long-Term Goal (LTG) Pt will imrpove LE strength to at least 4+/5 in all planes to show imrpoved stability and strength to return to typical activities. LTG Duration 10/07/20 1 Impairment LEFS 22/80 Short Term Goal (STG) Pt will improve LEFS score to 46 to show improvement in functional ability. STG Duration 09/08/20 Long-Term Goal (LTG) Pt will improve LEFS score to 60 to show improvement in functional ability. LTG Duration 10/07/20 Progress Towards Goals Progress Towards Goals Progressing Toward Goals Progress Comments Met STG Goal walking, activites. 6MWT 955 ft. 8 sit to stands in 30 sec. Assessment Summary Assessment Shuttle Recovery unavailable today. Pt had little brief twinge pain during gait 6MWT and squat but went away after scar and patella mob with ability to chicken picker objects off floor with no pain. Pt is progressing in functional activities with ability to walk 20-30 min with almost no pain and not using AD at this point. Tx today working on assessing goals and introducing dynamic balance to improve even BLE WB for normalizing gait with improved stance time COG over ZAFAR. Noted pt improved in level pelvis and almost no trunk lean during gait leaving. Physical Therapy Plan Frequency and Duration Frequency of Treatment 2x/Week Duration of Treatment 2 months Plan of Care Start Date 08/07/20 Plan of Care End Date 10/07/20 Therapeutic Interventions Therapeutic Interventions Aquatic Therapy,Balance Training,Gait Training,Home Exercise Program,Joint Mobilizations,Manual Therapy, Neuromuscular Re-education, Patient/Caregiver Education, Self-Care/Home Management,Soft Tissue Mobilization,Taping, Therapeutic Activities, Therapeutic Exercises Modalities Cold Pack/Ice Massage,Electric Stimulation,Hot Packs, Ultrasound Next Visit Focus/Plan Next Note Type Treatment Note Next Visit Plan Assess response to goal assessment activities, balance activities. Reassess ROM next tx. POC: cont to work on progression of range & work on quad and glute strengthening
--- NOTE | 2020-09-05 17:52 | PT.OTN ---
Current Diagnoses Unilateral primary osteoarthritis, left knee (09/05/20) Difficulty in walking, not elsewhere classified (09/05/20) Weakness (09/05/20) Physical Therapy Treatment Note PT-OP-A Visit Information Start: 07/25/20 18:05 Freq: Status: Active Protocol: Document 09/05/20 14:26 [facility] (Rec: 09/05/20 16:26 [facility] [id number]) Out-Patient Physical Therapy Visit Information Visit Information Visit Type Progress Note Visit Note pt present during session Visit Start Time 14:30 Visit Stop Time 15:23 Total Visit Minutes 53 Visit Number 10 Number of LOG RAFTER Visits 0 PT-OP-B Current Condition Start: 07/25/20 18:05 Freq: Status: Active Protocol: Document 08/07/20 16:04 [facility] (Rec: 08/07/20 16:50 [facility] [id number]) Current Condition History of Current Condition Onset Date 08/01/20 Current Complaints L TKA History of Current Condition 08/07-Surgery went well and was able to go home the next day. Has been able to get in/out of bed w/using UEs. Has not showered yet d/t difficulty getting into tub w/shower doors. Pt has been able to get dressed and get socks on herself. It takes her some time, but gets them on. IE:Pt reports pain starting last Apr when she had a pop in the back of her knee and had trouble bearing weight into leg. Pt was off work for a few weeks. Pain has been up and down where someitmes it feels like its getting better and other times can barely move. She has had a couple injections with them helping temporarily only. Now getting L TKA on 08/01/20. Pt got a cane and FWW. Plans to move some things in house so there is more room for her and walker. Her house was origninally made for her mother in law who was handicap. Pt has no XIOMY and is SLH. Pt has tub and normal toilet. 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 Job entails: standing, walking, pushing carts, lifting, and putting stock away. Pt does take care of mother w/Parkinson's who lives on her owna nd can move on her own. Treatment Goals Patient/Caregiver Goals Be able to walk without a limp , be able to bend over and spanish moss picker something w/o pain, be able return to work PT-OP-C Subjective Start: 07/25/20 18:05 Freq: Status: Active Protocol: Document 09/05/20 14:26 [facility] (Rec: 09/05/20 16:26 [facility] [id number]) OP-PT Subjective Patient Comments Patient Comments Pt reprots she sees MD next week. Pt reprots a lot of superficial pain which she attributes to the scar. Patient Reported Progress Improving PT-OP-F Manual Assessment Start: 07/25/20 18:05 Freq: Status: Active Protocol: Document 08/07/20 16:04 [facility] (Rec: 08/07/20 16:50 [facility] [id number]) Manual Assessments Soft Tissue Assessment Soft Tissue Mobility Assessment swelling, bruising most ant med and some post in HS & calf PT-OP-G Mobility & Gait Start: 07/25/20 18:05 Freq: Status: Active Protocol: Document 08/07/20 16:04 [facility] (Rec: 08/07/20 16:50 [facility] [id number]) OP Mobility Evaluation Bed Mobility Supine to and from Sit requires self UE assist Transfers Sit to Stand puts leg out in front for sit to stand and uses hands OP Gait Assessment Comments Gait Comments step throught w/FWW w/fwd lean w/WB on LLE PT-OP-K Range of Motion Start: 07/25/20 18:05 Freq: Status: Active Protocol: Document 09/05/20 14:26 [facility] (Rec: 09/05/20 16:26 [facility] [id number]) Knee Goniometric Range of Motion Knee Left Flexion Active (degrees) 116 Extension Active (degrees) 4 PT-OP-M Strength Start: 07/25/20 18:05 Freq: Status: Active Protocol: Document 09/05/20 14:26 [facility] (Rec: 09/05/20 16:26 [facility] [id number]) Hip Strength Hip Manual Muscle Testing Right Flexion (L2) 4 Good Extension (S1) 4+ Good+ Abduction 4+ Good+ External Rotation 4+ Good+ Internal Rotation 4+ Good+ Left Flexion (L2) 4 Good Extension (S1) 4 Good Abduction 4 Good External Rotation 4 Good Internal Rotation 4 Good Knee Strength Knee Manual Muscle Testing Right Flexion (S2) 5 Normal Extension (L3) 5 Normal Left Flexion (S2) 4+ Good+ Extension (L3) 4 Good Ankle/Foot Strength Ankle and Foot Manual Muscle Testing Right Dorsiflexion (L4) 5 Normal Plantarflexion (S1) 5 Normal Left Dorsiflexion (L4) 5 Normal Plantarflexion (S1) 5 Normal Comments seated PF testing B PT-OP-Q Treatments Start: 07/25/20 18:05 Freq: Status: Active Protocol: Document 09/05/20 14:26 [facility] (Rec: 09/05/20 16:26 [facility] [id number]) Cardio Equipment Recumbent Bicycle Duration (Minutes) 6 Resistance 4 Seat Position 5 Gym Equipment Shuttle Recovery maye squats Resistance 75#, 100# Shuttle Recovery Platform Stable Reps/Time 2x15 Shuttle Balance red Details WBOS, NBOS Comments 1. wt shift f/b 2. head turns Therapeutic Exercises Standing Exercises side steps Side bilateral Equipment Used yellow tband Reps/Minutes 2x20ft Gait Training Gait Activity stairs Description up 6 in steps and down 4 in step w/rail Distance/Duration 2x PT-OP-R Modalities Start: 07/25/20 18:05 Freq: Status: Active Protocol: Document 09/05/20 14:26 [facility] (Rec: 09/05/20 16:26 [facility] [id number]) Hot Pack/Cold Pack Treatment Cold Pack Location L knee Patient Position Supine Treatment Duration (minutes) 10 Patient Tolerance Good PT-OP-T Assessment and Plan Start: 07/25/20 18:05 Freq: Status: Active Protocol: Document 09/05/20 14:26 [facility] (Rec: 09/05/20 16:26 [facility] [id number]) Physical Therapy Assessment Goals walking Short Term Goal (STG) Pt will be able to amb with good gait mechanics w/SPC for at least 15 min without inc pain over 08/06. 08/16/20: progressing: able to walk around house maybe 10 min before needs to sit, might be longer at her mom's house, will pay attention over the weekend. 08/23/20: progressing is able walk neighborhood street using SPC about 10 min before needs go and sit down more uncomfort than pain and able to walk around [employer] 20 min pushing cart BUE before needs sit rest. 08/30/20: Goal met: pt reported able to walk 20-30 min without cane on [address] with only occasional brief twinge pain under patella. STG Duration achieved Half-Way Goal (LTG) Pt will be able to amb as needed without AD without inc pain greater than 2/10. 09/05-walk around neighborhood 2 /10 pain LTG Duration 10/07/20 activities Short Term Goal (STG) Pt will be able to squat down to spanish moss picker objects without increased pain. 08/30/20: Goal met. Pt is able to spanish moss picker cones off floor brief small pain sub patella, gone after manual scar and patell mob. STG Duration achieved Half-Way Goal (LTG) Pt will be able to return to working without inc pain greater than 3/10 LTG Duration 10/07/20 strength Short Term Goal (STG) Pt will be indep w/ HEP 08/30/20: progressing HEP: heel slides, SLR, seated hs curls Tb #1, sit<>stands on UE support, calf raises, LAQ, ROM knee mobility on step, hs curl standing. STG Duration achieved Half-Way Goal (LTG) Pt will imrpove LE strength to at least 4+/5 in all planes to show imrpoved stability and strength to return to typical activities. 09/05 progressing LTG Duration 10/07/20 1 Impairment LEFS 22/80 Short Term Goal (STG) Pt will improve LEFS score to 46 to show improvement in functional ability. STG Duration achieved Casino Cashier Goal (LTG) Pt will improve LEFS score to 60 to show improvement in functional ability. LTG Duration [id number] Assessment Summary Assessment Pt making excellent progress towards her recovery at this time and shows signficiant functional gains. She has great ROM and good leg strength along with improving balance. She was able to go up /down stairs today w/o inc pain but only 4 in steps for the decent. She has been able to walk at home and was encoruaged to inc that w/ anticipation of return to work in a couple weeks. Physical Therapy Plan Frequency and Duration Frequency of Treatment 2x/Week Duration of Treatment 2 months Plan of Care Start Date 08/07/20 Plan of Care End Date 10/07/20 Next Visit Focus/Plan Next Note Type Treatment Note Next Visit Plan cont to work on balance, gait and LE strength
--- NOTE | 2020-09-07 15:15 | PT.OTN ---
Current Diagnoses Unilateral primary osteoarthritis, left knee (09/07/20) Difficulty in walking, not elsewhere classified (09/07/20) Weakness (09/07/20) Physical Therapy Treatment Note PT-OP-A Visit Information Start: 07/25/20 18:05 Freq: Status: Active Protocol: Document 09/07/20 14:35 [facility] (Rec: 09/07/20 15:30 [facility] [id number]) Out-Patient Physical Therapy Visit Information Visit Information Visit Type Treatment Note Visit Note pt present during session Pt 5 min late for appt due to covid shot Visit Start Time 14:35 Visit Stop Time 15:15 Total Visit Minutes 40 Visit Number 11 Number of DISEASE INTERVENTION SPECIALIST Visits 1 PT-OP-B Current Condition Start: 07/25/20 18:05 Freq: Status: Active Protocol: Document 08/07/20 16:04 [facility] (Rec: 08/07/20 16:50 [facility] [id number]) Current Condition History of Current Condition Onset Date 08/01/20 Current Complaints L TKA History of Current Condition 08/07-Surgery went well and was able to go home the next day. Has been able to get in/out of bed w/using UEs. Has not showered yet d/t difficulty getting into tub w/shower doors. Pt has been able to get dressed and get socks on herself. It takes her some time, but gets them on. IE:Pt reports pain starting last Apr when she had a pop in the back of her knee and had trouble bearing weight into leg. Pt was off work for a few weeks. Pain has been up and down where someitmes it feels like its getting better and other times can barely move. She has had a couple injections with them helping temporarily only. Now getting L TKA on 08/01/20. Pt got a cane and FWW. Plans to move some things in house so there is more room for her and walker. Her house was origninally made for her mother in law who was handicap. Pt has no XIOMY and is SLH. Pt has tub and normal toilet. 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 Job entails: standing, walking, pushing carts, lifting, and putting stock away. Pt does take care of mother w/Parkinson's who lives on her owna nd can move on her own. Treatment Goals Patient/Caregiver Goals Be able to walk without a limp , be able to bend over and mushroom picker something w/o pain, be able return to work PT-OP-C Subjective Start: 07/25/20 18:05 Freq: Status: Active Protocol: Document 09/07/20 14:35 [facility] (Rec: 09/07/20 15:30 SP [id number]) OP-PT Subjective Patient Comments Patient Comments Pt stated has follow up with ortho next week. Pt states walked the neighborhood on incline[place] with walking her 2 small dogs with no greater than 1-2/10 pain. Plans to return to work September 17. Patient Reported Progress Improving PT-OP-F Manual Assessment Start: 07/25/20 18:05 Freq: Status: Active Protocol: Document 08/07/20 16:04 [facility] (Rec: 08/07/20 16:50 [facility] [id number]) Manual Assessments Soft Tissue Assessment Soft Tissue Mobility Assessment swelling, bruising most ant med and some post in HS & calf PT-OP-G Mobility & Gait Start: 07/25/20 18:05 Freq: Status: Active Protocol: Document 08/07/20 16:04 [facility] (Rec: 08/07/20 16:50 [facility] [id number]) OP Mobility Evaluation Bed Mobility Supine to and from Sit requires self UE assist Transfers Sit to Stand puts leg out in front for sit to stand and uses hands OP Gait Assessment Comments Gait Comments step throught w/FWW w/fwd lean w/WB on LLE PT-OP-K Range of Motion Start: 07/25/20 18:05 Freq: Status: Active Protocol: Document 09/05/20 14:26 [facility] (Rec: 09/05/20 16:26 [facility] [id number]) Knee Goniometric Range of Motion Knee Left Flexion Active (degrees) 116 Extension Active (degrees) 4 PT-OP-M Strength Start: 07/25/20 18:05 Freq: Status: Active Protocol: Document 09/05/20 14:26 [facility] (Rec: 09/05/20 16:26 [facility] [id number]) Hip Strength Hip Manual Muscle Testing Right Flexion (L2) 4 Good Extension (S1) 4+ Good+ Abduction 4+ Good+ External Rotation 4+ Good+ Internal Rotation 4+ Good+ Left Flexion (L2) 4 Good Extension (S1) 4 Good Abduction 4 Good External Rotation 4 Good Internal Rotation 4 Good Knee Strength Knee Manual Muscle Testing Right Flexion (S2) 5 Normal Extension (L3) 5 Normal Left Flexion (S2) 4+ Good+ Extension (L3) 4 Good Ankle/Foot Strength Ankle and Foot Manual Muscle Testing Right Dorsiflexion (L4) 5 Normal Plantarflexion (S1) 5 Normal Left Dorsiflexion (L4) 5 Normal Plantarflexion (S1) 5 Normal Comments seated PF testing B PT-OP-Q Treatments Start: 07/25/20 18:05 Freq: Status: Active Protocol: Document 09/07/20 14:35 [facility] (Rec: 09/07/20 15:30 [facility] [id number]) Cardio Equipment Recumbent Elliptical (BiodBringrr) Duration (Minutes) 10 Resistance 4 (increase 5 resistance next tx) Seat Position 8 Other AAROM UE/ LE assist, cued 50 RPM, total step: 1067 Gym Equipment Shuttle Recovery unilateral squat Details alternate LEs Resistance 50#> 62# Shuttle Recovery Platform Stable Reps/Time x10 maye squats Resistance 100# Shuttle Recovery Platform Stable Reps/Time 2x15 Shuttle Balance red Details WBOS, NBOS, stagger Reps/Duration 8 min Comments 1. wt shift f/b- CG- Min A 2. head turns- CG- Min A 3. EC- 1-3 sec Therapeutic Exercises Standing Exercises SLS Standing Exercise Name added to HEP Side bilateral Equipment Used near rail Comments R 20/ 30, L 30/30 lateral step down Standing Exercise Name alternate LEs- review- added to HEP if finds 4 step Side bilateral Equipment Used rail contact Reps/Minutes 2x10 Comments cued quad and glut facilitation- good sit to stand Standing Exercise Name w/o hands- added to HEP Side bilateral Resistance AROM Equipment Used 26 box step Reps/Minutes x1 reps able to do without much momentum (assess rep in 30 sec next tx) Comments good slow eccentric control PT-OP-R Modalities Start: 07/25/20 18:05 Freq: Status: Active Protocol: Document 09/05/20 14:26 [facility] (Rec: 09/05/20 16:26 [facility] [id number]) Hot Pack/Cold Pack Treatment Cold Pack Location L knee Patient Position Supine Treatment Duration (minutes) 10 Patient Tolerance Good PT-OP-T Assessment and Plan Start: 07/25/20 18:05 Freq: Status: Active Protocol: Document 09/07/20 14:35 [facility] (Rec: 09/07/20 15:30 SP [id number]) Physical Therapy Assessment Goals walking Short Term Goal (STG) Pt will be able to amb with good gait mechanics w/SPC for at least 15 min without inc pain over 08/06. 08/16/20: progressing: able to walk around house maybe 10 min before needs to sit, might be longer at her mom's house, will pay attention over the weekend. 08/23/20: progressing is able walk neighborhood street using SPC about 10 min before needs go and sit down more uncomfort than pain and able to walk around [employer] 20 min pushing cart BUE before needs sit rest. 08/30/20: Goal met: pt reported able to walk 20-30 min without cane on neighborhood [address] with only occasional brief twinge pain under patella. STG Duration achieved Wet Process Head Miller Goal (LTG) Pt will be able to amb as needed without AD without inc pain greater than 2/10. 09/05-walk around neighborhood 2 /10 pain 09/07/20: Goal met: was able to walk around neighborhood up down hills while walking her 2 small dogs with pain 1-2/10 more tired. LTG Duration achieved 09/07/20 activities Short Term Goal (STG) Pt will be able to squat down to mushroom picker objects without increased pain. 08/30/20: Goal met. Pt is able to mushroom picker cones off floor brief small pain sub patella, gone after manual scar and patell mob. STG Duration achieved Wet Process Head Miller Goal (LTG) Pt will be able to return to working without inc pain greater than 3/10 LTG Duration 10/07/20 strength Short Term Goal (STG) Pt will be indep w/ HEP 09/07/20: HEP: SLR, seated hs curls Tb #1, sit<>stands, calf raises, eccentric lateral step down, SLS. STG Duration achieved Wet Process Head Miller Goal (LTG) Pt will imrpove LE strength to at least 4+/5 in all planes to show imrpoved stability and strength to return to typical activities. 09/05 progressing LTG Duration 10/07/20 1 Impairment LEFS 22/80 Short Term Goal (STG) Pt will improve LEFS score to 46 to show improvement in functional ability. STG Duration achieved Residential Goal (LTG) Pt will improve LEFS score to 60 to show improvement in functional ability. LTG Duration achieved 68/80 Assessment Summary Assessment Pt worked hard during tx, able to increase resistance to shuttle recovery, balance red chains added stagger w/ head turns CG- Min A with cuing and improved self corrections, unable >1-3 sec EC WBOS, NBOS . Intiated SLS and reviewed lateral step down, pain free. Pt demonstrates weakness glut facilitation on RLE. Next tx include glut facilitation and gait for level pelvis. Physical Therapy Plan Frequency and Duration Frequency of Treatment 2x/Week Duration of Treatment 2 months Plan of Care Start Date 08/07/20 Plan of Care End Date 10/07/20 Therapeutic Interventions Therapeutic Interventions Aquatic Therapy,Balance Training,Gait Training,Home Exercise Program,Joint Mobilizations,Manual Therapy, Neuromuscular Re-education, Patient/Caregiver Education, Self-Care/Home Management,Soft Tissue Mobilization,Taping, Therapeutic Activities, Therapeutic Exercises Modalities Cold Pack/Ice Massage,Electric Stimulation,Hot Packs, Ultrasound Next Visit Focus/Plan Next Note Type Treatment Note Next Visit Plan Review SLS, lateral step down. Progress glut, HS strengthening to improve level pelvis during gait. POC: cont to work on balance, gait and LE strength
--- NOTE | 2020-09-11 11:21 | PT.OTN ---
Current Diagnoses Unilateral primary osteoarthritis, left knee (09/11/20) Difficulty in walking, not elsewhere classified (09/11/20) Weakness (09/11/20) Physical Therapy Treatment Note PT-OP-A Visit Information Start: 07/25/20 18:05 Freq: Status: Active Protocol: Document 09/11/20 10:32 [facility] (Rec: 09/11/20 11:20 [facility] [id number]) Out-Patient Physical Therapy Visit Information Visit Information Visit Type Treatment Note Visit Start Time 10:32 Visit Stop Time 11:23 Total Visit Minutes 51 Visit Number 12 Number of ACADEMIC AFFAIRS SPECIALIST Visits 0 PT-OP-B Current Condition Start: 07/25/20 18:05 Freq: Status: Active Protocol: Document 08/07/20 16:04 [facility] (Rec: 08/07/20 16:50 [facility] [id number]) Current Condition History of Current Condition Onset Date 08/01/20 Current Complaints L TKA History of Current Condition 08/07-Surgery went well and was able to go home the next day. Has been able to get in/out of bed w/using UEs. Has not showered yet d/t difficulty getting into tub w/shower doors. Pt has been able to get dressed and get socks on herself. It takes her some time, but gets them on. IE:Pt reports pain starting last Apr when she had a pop in the back of her knee and had trouble bearing weight into leg. Pt was off work for a few weeks. Pain has been up and down where someitmes it feels like its getting better and other times can barely move. She has had a couple injections with them helping temporarily only. Now getting L TKA on 08/01/20. Pt got a cane and FWW. Plans to move some things in house so there is more room for her and walker. Her house was origninally made for her mother in law who was handicap. Pt has no XIOMY and is SLH. Pt has tub and normal toilet. 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 Job entails: standing, walking, pushing carts, lifting, and putting stock away. Pt does take care of mother w/Parkinson's who lives on her owna nd can move on her own. Treatment Goals Patient/Caregiver Goals Be able to walk without a limp , be able to bend over and picking machine operator helper something w/o pain, be able return to work PT-OP-C Subjective Start: 07/25/20 18:05 Freq: Status: Active Protocol: Document 09/11/20 10:32 [facility] (Rec: 09/11/20 11:20 [facility] [id number]) OP-PT Subjective Patient Comments Patient Comments Pt has takena couple walks. She tried to walk 2 of her dogs herself which didn't go well. Notes the next time they just took 1. Have been just walking a couple blocks. Knee has been sore the past couple days but she thinks that may be d/t weather PT-OP-F Manual Assessment Start: 07/25/20 18:05 Freq: Status: Active Protocol: Document 08/07/20 16:04 [facility] (Rec: 08/07/20 16:50 [facility] [id number]) Manual Assessments Soft Tissue Assessment Soft Tissue Mobility Assessment swelling, bruising most ant med and some post in HS & calf PT-OP-G Mobility & Gait Start: 07/25/20 18:05 Freq: Status: Active Protocol: Document 08/07/20 16:04 [facility] (Rec: 08/07/20 16:50 [facility] [id number]) OP Mobility Evaluation Bed Mobility Supine to and from Sit requires self UE assist Transfers Sit to Stand puts leg out in front for sit to stand and uses hands OP Gait Assessment Comments Gait Comments step throught w/FWW w/fwd lean w/WB on LLE PT-OP-K Range of Motion Start: 07/25/20 18:05 Freq: Status: Active Protocol: Document 09/05/20 14:26 [facility] (Rec: 09/05/20 16:26 [facility] [id number]) Knee Goniometric Range of Motion Knee Left Flexion Active (degrees) 116 Extension Active (degrees) 4 PT-OP-M Strength Start: 07/25/20 18:05 Freq: Status: Active Protocol: Document 09/05/20 14:26 [facility] (Rec: 09/05/20 16:26 [facility] [id number]) Hip Strength Hip Manual Muscle Testing Right Flexion (L2) 4 Good Extension (S1) 4+ Good+ Abduction 4+ Good+ External Rotation 4+ Good+ Internal Rotation 4+ Good+ Left Flexion (L2) 4 Good Extension (S1) 4 Good Abduction 4 Good External Rotation 4 Good Internal Rotation 4 Good Knee Strength Knee Manual Muscle Testing Right Flexion (S2) 5 Normal Extension (L3) 5 Normal Left Flexion (S2) 4+ Good+ Extension (L3) 4 Good Ankle/Foot Strength Ankle and Foot Manual Muscle Testing Right Dorsiflexion (L4) 5 Normal Plantarflexion (S1) 5 Normal Left Dorsiflexion (L4) 5 Normal Plantarflexion (S1) 5 Normal Comments seated PF testing B PT-OP-Q Treatments Start: 07/25/20 18:05 Freq: Status: Active Protocol: Document 09/11/20 10:32 [facility] (Rec: 09/11/20 11:20 [facility] [id number]) Cardio Equipment Recumbent Bicycle Duration (Minutes) 6 Resistance 4 Seat Position 5 Gym Equipment Shuttle Recovery unilateral squat Details b Resistance 62# Shuttle Recovery Platform Stable Reps/Time x10 maye squats Resistance 100#, 112# Shuttle Recovery Platform Stable Reps/Time 2x15 Therapeutic Exercises Standing Exercises hip hike Side bilateral Equipment Used 4 in step w/ rail Reps/Minutes 15 SLS Side bilateral Equipment Used near rail Comments trials in mirror for even pelvis lateral step down Side bilateral Equipment Used rail contact prn Reps/Minutes 2x10 Comments cued quad and glut facilitation- good side steps Side bilateral Equipment Used yellow tband Reps/Minutes 2x20ft Manual Therapy Treatment Soft Tissue Mobilization scar mob Mobilization Type Myofascial Release,Rolling Intensity/Depth Moderate Body Position Supine Comments good tolerance Joint Mobilizations patella mob Direction sup, inf PT-OP-R Modalities Start: 07/25/20 18:05 Freq: Status: Active Protocol: Document 09/11/20 10:32 [facility] (Rec: 09/11/20 11:20 [facility] [id number]) Hot Pack/Cold Pack Treatment Cold Pack Location L knee Patient Position Supine Treatment Duration (minutes) 10 Patient Tolerance Good PT-OP-T Assessment and Plan Start: 07/25/20 18:05 Freq: Status: Active Protocol: Document 09/11/20 10:32 [facility] (Rec: 09/11/20 11:20 [facility] [id number]) Physical Therapy Assessment Goals walking Short Term Goal (STG) Pt will be able to amb with good gait mechanics w/SPC for at least 15 min without inc pain over 5/10. 08/16/20: progressing: able to walk around house maybe 10 min before needs to sit, might be longer at her mom's house, will pay attention over the weekend. 08/23/20: progressing is able walk neighborhood street using SPC about 10 min before needs go and sit down more uncomfort than pain and able to walk around [employer] 20 min pushing cart BUE before needs sit rest. 08/30/20: Goal met: pt reported able to walk 20-30 min without cane [address] with only occasional brief twinge pain under patella. STG Duration achieved Fdc Goal (LTG) Pt will be able to amb as needed without AD without inc pain greater than 05/09. 09/05-walk around neighborhood / pain 09/07/20: Goal met: was able to walk around neighborhood up down hills while walking her 2 small dogs with pain 1-2/10 more tired. LTG Duration achieved 09/07/20 activities Short Term Goal (STG) Pt will be able to squat down to picking machine operator helper objects without increased pain. 08/30/20: Goal met. Pt is able to picking machine operator helper cones off floor brief small pain sub patella, gone after manual scar and patell mob. STG Duration achieved [place] Goal (LTG) Pt will be able to return to working without inc pain greater than 3/10 LTG Duration 10/07/20 strength Short Term Goal (STG) Pt will be indep w/ HEP 09/07/20: HEP: SLR, seated hs curls Tb #1, sit<>stands, calf raises, eccentric lateral step down, SLS. STG Duration achieved Fdc Goal (LTG) Pt will imrpove LE strength to at least 4+/5 in all planes to show imrpoved stability and strength to return to typical activities. 09/05 progressing LTG Duration 10/07/20 1 Impairment LEFS 22/80 Short Term Goal (STG) Pt will improve LEFS score to 46 to show improvement in functional ability. STG Duration achieved [place] Goal (LTG) Pt will improve LEFS score to 60 to show improvement in functional ability. LTG Duration achieved 68/80 Assessment Summary Assessment Pt did well with all exerciess todayw ith less cueing needed to keep pelvis even. She did well with SLS today, showing good stability and used less UEs on rail w/step down. Physical Therapy Plan Frequency and Duration Frequency of Treatment 2x/Week Duration of Treatment 2 months Plan of Care Start Date 08/07/20 Plan of Care End Date 10/07/20 Next Visit Focus/Plan Next Note Type Treatment Note Next Visit Plan Review SLS, lateral step down. Progress glut, HS strengthening to improve level pelvis during gait.
--- NOTE | 2020-09-13 13:03 | PT.OTN ---
Current Diagnoses Unilateral primary osteoarthritis, left knee (09/13/20) Difficulty in walking, not elsewhere classified (09/13/20) Weakness (09/13/20) Physical Therapy Treatment Note PT-OP-A Visit Information Start: 07/25/20 18:05 Freq: Status: Active Protocol: Document 09/13/20 12:18 [facility] (Rec: 09/13/20 13:16 [facility] [id number]) Out-Patient Physical Therapy Visit Information Visit Information Visit Type Treatment Note Visit Start Time 12:18 Visit Stop Time 13:03 Total Visit Minutes 45 Visit Number 13 Number of HOUSING COORDINATOR Visits 1 PT-OP-B Current Condition Start: 07/25/20 18:05 Freq: Status: Active Protocol: Document 08/07/20 16:04 [facility] (Rec: 08/07/20 16:50 [facility] [id number]) Current Condition History of Current Condition Onset Date 08/01/20 Current Complaints L TKA History of Current Condition 08/07-Surgery went well and was able to go home the next day. Has been able to get in/out of bed w/using UEs. Has not showered yet d/t difficulty getting into tub w/shower doors. Pt has been able to get dressed and get socks on herself. It takes her some time, but gets them on. IE:Pt reports pain starting last Apr when she had a pop in the back of her knee and had trouble bearing weight into leg. Pt was off work for a few weeks. Pain has been up and down where someitmes it feels like its getting better and other times can barely move. She has had a couple injections with them helping temporarily only. Now getting L TKA on 08/01/20. Pt got a cane and FWW. Plans to move some things in house so there is more room for her and walker. Her house was origninally made for her mother in law who was handicap. Pt has no XIOMY and is SLH. Pt has tub and normal toilet. 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 Job entails: standing, walking, pushing carts, lifting, and putting stock away. Pt does take care of mother w/Parkinson's who lives on her owna nd can move on her own. Treatment Goals Patient/Caregiver Goals Be able to walk without a limp , be able to bend over and bean picker something w/o pain, be able return to work PT-OP-C Subjective Start: 07/25/20 18:05 Freq: Status: Active Protocol: Document 09/13/20 12:18 [facility] (Rec: 09/13/20 13:16 [facility] [id number]) OP-PT Subjective Patient Comments Patient Comments Pt stated saw ortho and released back to work Next Thursday. Patient Reported Progress Improving PT-OP-F Manual Assessment Start: 07/25/20 18:05 Freq: Status: Active Protocol: Document 08/07/20 16:04 [facility] (Rec: 08/07/20 16:50 [facility] [id number]) Manual Assessments Soft Tissue Assessment Soft Tissue Mobility Assessment swelling, bruising most ant med and some post in HS & calf PT-OP-G Mobility & Gait Start: 07/25/20 18:05 Freq: Status: Active Protocol: Document 08/07/20 16:04 [facility] (Rec: 08/07/20 16:50 [facility] [id number]) OP Mobility Evaluation Bed Mobility Supine to and from Sit requires self UE assist Transfers Sit to Stand puts leg out in front for sit to stand and uses hands OP Gait Assessment Comments Gait Comments step throught w/FWW w/fwd lean w/WB on LLE PT-OP-K Range of Motion Start: 07/25/20 18:05 Freq: Status: Active Protocol: Document 09/05/20 14:26 [facility] (Rec: 09/05/20 16:26 [facility] [id number]) Knee Goniometric Range of Motion Knee Left Flexion Active (degrees) 116 Extension Active (degrees) 4 PT-OP-M Strength Start: 07/25/20 18:05 Freq: Status: Active Protocol: Document 09/05/20 14:26 [facility] (Rec: 09/05/20 16:26 [facility] [id number]) Hip Strength Hip Manual Muscle Testing Right Flexion (L2) 4 Good Extension (S1) 4+ Good+ Abduction 4+ Good+ External Rotation 4+ Good+ Internal Rotation 4+ Good+ Left Flexion (L2) 4 Good Extension (S1) 4 Good Abduction 4 Good External Rotation 4 Good Internal Rotation 4 Good Knee Strength Knee Manual Muscle Testing Right Flexion (S2) 5 Normal Extension (L3) 5 Normal Left Flexion (S2) 4+ Good+ Extension (L3) 4 Good Ankle/Foot Strength Ankle and Foot Manual Muscle Testing Right Dorsiflexion (L4) 5 Normal Plantarflexion (S1) 5 Normal Left Dorsiflexion (L4) 5 Normal Plantarflexion (S1) 5 Normal Comments seated PF testing B PT-OP-Q Treatments Start: 07/25/20 18:05 Freq: Status: Active Protocol: Document 09/13/20 12:18 [facility] (Rec: 09/13/20 13:16 [facility] [id number]) Cardio Equipment Recumbent Elliptical (BiodVideolla) Duration (Minutes) 10 Resistance 7 Seat Position 8 Other 50 RPM, total step: 1026 Therapeutic Exercises Supine Exercises heel slides Supine Exercise Name assess ROM Equipment Used AROM Comments 126*, AAROM 132* Sitting Exercises LAQ Sitting Exercise Name added to HEP Side left Resistance Tb #2 loop Reps/Minutes 5 sec x10 Comments good control knee flex Sitting Exercise Name HS curls- added to HEP Side left Resistance Tb #2>#3 Reps/Minutes 2x10 Comments cued slow eccentric control Standing Exercises side steps Side bilateral Equipment Used yellow tband Reps/Minutes 3x 10 ft sit to stand Standing Exercise Name w/o hands- added to HEP Side bilateral Resistance AROM Equipment Used 18 box step Reps/Minutes 10.5 reps in 30 sec Comments good slow eccentric control Gait Training Gait Activity 6MWT Device Used 0 Level of Assistance S Surface 3 even parkinglot laps Distance/Duration 1116 ft Treatment Focus glut faciltation w/ trunk alignment Comments cued tall posture, quad/ glut facilitation, level pelvis, soft knee and not end range knee extension/ hyperextension during midstance phase Daryl. Manual Therapy Treatment Soft Tissue Mobilization scar mob Mobilization Type Myofascial Release,Rolling Intensity/Depth Moderate Body Position Standing Comments standing during stand stop good tolerance decreased brief sharp pain inferior scar. Educated continue agressive application at home to support knee flexion ROM. PT-OP-R Modalities Start: 07/25/20 18:05 Freq: Status: Active Protocol: Document 09/11/20 10:32 [facility] (Rec: 09/11/20 11:20 [facility] [id number]) Hot Pack/Cold Pack Treatment Cold Pack Location L knee Patient Position Supine Treatment Duration (minutes) 10 Patient Tolerance Good PT-OP-T Assessment and Plan Start: 07/25/20 18:05 Freq: Status: Active Protocol: Document 09/13/20 12:18 [facility] (Rec: 09/13/20 13:16 [facility] [id number]) Physical Therapy Assessment Goals walking Short Term Goal (STG) Pt will be able to amb with good gait mechanics w/SPC for at least 15 min without inc pain over 08/06. 08/16/20: progressing: able to walk around house maybe 10 min before needs to sit, might be longer at her mom's house, will pay attention over the weekend. 08/23/20: progressing is able walk neighborhood street using SPC about 10 min before needs go and sit down more uncomfort than pain and able to walk around [employer] 20 min pushing cart BUE before needs sit rest. 08/30/20: Goal met: pt reported able to walk 20-30 min without cane on [address] with only occasional brief twinge pain under patella. STG Duration achieved [place] Goal (LTG) Pt will be able to amb as needed without AD without inc pain greater than 2/10. 09/05-walk around neighborhood 2 /10 pain 09/07/20: Goal met: was able to walk around neighborhood up down hills while walking her 2 small dogs with pain 1-2/10 more tired. LTG Duration achieved 09/07/20 activities Short Term Goal (STG) Pt will be able to squat down to bean picker objects without increased pain. 08/30/20: Goal met. Pt is able to bean picker cones off floor brief small pain sub patella, gone after manual scar and patell mob. STG Duration achieved Intermediate Goal (LTG) Pt will be able to return to working without inc pain greater than 3/10 LTG Duration 10/07/20 strength Short Term Goal (STG) Pt will be indep w/ HEP 09/07/20: HEP: SLR, seated hs curls Tb #1, sit<>stands, calf raises, eccentric lateral step down, SLS. STG Duration achieved Transmission Assembler Goal (LTG) Pt will imrpove LE strength to at least 4+/5 in all planes to show imrpoved stability and strength to return to typical activities. 09/05 progressing LTG Duration 10/07/20 1 Impairment LEFS 22/80 Short Term Goal (STG) Pt will improve LEFS score to 46 to show improvement in functional ability. STG Duration achieved Transmission Assembler Goal (LTG) Pt will improve LEFS score to 60 to show improvement in functional ability. LTG Duration achieved 68/80 Assessment Summary Assessment Pt improved in 6MWT by 159 ft over uneven parkinglot this tx , noted little pain inferior scar that improved post scar mob. Educated pt of continued scar mob, incorporated knee flexion and ext strengthening this tx to facilitation to improve end range soft knee stability while walking and stationary stance with improved awareness and self corrections. Recommended to work on standing/ walking endurance and stationary stance until Thursday to work up time to assimulate standing positioning at work. Increased AROM 116>126* this tx, AAROM 132*. Physical Therapy Plan Frequency and Duration Frequency of Treatment 2x/Week Duration of Treatment 2 months Plan of Care Start Date 08/07/20 Plan of Care End Date 10/07/20 Therapeutic Interventions Therapeutic Interventions Aquatic Therapy,Balance Training,Gait Training,Home Exercise Program,Joint Mobilizations,Manual Therapy, Neuromuscular Re-education, Patient/Caregiver Education, Self-Care/Home Management,Soft Tissue Mobilization,Taping, Therapeutic Activities, Therapeutic Exercises Modalities Cold Pack/Ice Massage,Electric Stimulation,Hot Packs, Ultrasound Next Visit Focus/Plan Next Note Type Treatment Note Next Visit Plan Next tx add 4 way hip standing , Review SLS and HEP. POC: Progress glut, HS strengthening to improve level pelvis during gait.
--- NOTE | 2020-09-17 15:17 | PT.OTN ---
Current Diagnoses Unilateral primary osteoarthritis, left knee (09/17/20) Difficulty in walking, not elsewhere classified (09/17/20) Weakness (09/17/20) Physical Therapy Treatment Note PT-OP-A Visit Information Start: 07/25/20 18:05 Freq: Status: Active Protocol: Document 09/17/20 14:35 [facility] (Rec: 09/17/20 15:17 [facility] [id number]) Out-Patient Physical Therapy Visit Information Visit Information Visit Type Treatment Note Visit Start Time 14:34 Visit Stop Time 15:24 Total Visit Minutes 50 Visit Number 14 Number of PICKLE PROCESSOR Visits 0 PT-OP-B Current Condition Start: 07/25/20 18:05 Freq: Status: Active Protocol: Document 08/07/20 16:04 [facility] (Rec: 08/07/20 16:50 [facility] [id number]) Current Condition History of Current Condition Onset Date 08/01/20 Current Complaints L TKA History of Current Condition 08/07-Surgery went well and was able to go home the next day. Has been able to get in/out of bed w/using UEs. Has not showered yet d/t difficulty getting into tub w/shower doors. Pt has been able to get dressed and get socks on herself. It takes her some time, but gets them on. IE:Pt reports pain starting last Apr when she had a pop in the back of her knee and had trouble bearing weight into leg. Pt was off work for a few weeks. Pain has been up and down where someitmes it feels like its getting better and other times can barely move. She has had a couple injections with them helping temporarily only. Now getting L TKA on 08/01/20. Pt got a cane and FWW. Plans to move some things in house so there is more room for her and walker. Her house was origninally made for her mother in law who was handicap. Pt has no XIOMY and is SLH. Pt has tub and normal toilet. 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 Job entails: standing, walking, pushing carts, lifting, and putting stock away. Pt does take care of mother w/Parkinson's who lives on her owna nd can move on her own. Treatment Goals Patient/Caregiver Goals Be able to walk without a limp , be able to bend over and miner pick something w/o pain, be able return to work PT-OP-C Subjective Start: 07/25/20 18:05 Freq: Status: Active Protocol: Document 09/17/20 14:35 [facility] (Rec: 09/17/20 15:17 [facility] [id number]) OP-PT Subjective Patient Comments Patient Comments Pt reprots first day of went well. About 2/10 pain after day's work but she is tired so isn't focusign on her walking . Her back was painful today at work. Notes back pain typically comes and goes. notes if she sits down, pain starts getting better. PT-OP-F Manual Assessment Start: 07/25/20 18:05 Freq: Status: Active Protocol: Document 08/07/20 16:04 [facility] (Rec: 08/07/20 16:50 [facility] [id number]) Manual Assessments Soft Tissue Assessment Soft Tissue Mobility Assessment swelling, bruising most ant med and some post in HS & calf PT-OP-G Mobility & Gait Start: 07/25/20 18:05 Freq: Status: Active Protocol: Document 08/07/20 16:04 [facility] (Rec: 08/07/20 16:50 [facility] [id number]) OP Mobility Evaluation Bed Mobility Supine to and from Sit requires self UE assist Transfers Sit to Stand puts leg out in front for sit to stand and uses hands OP Gait Assessment Comments Gait Comments step throught w/FWW w/fwd lean w/WB on LLE PT-OP-K Range of Motion Start: 07/25/20 18:05 Freq: Status: Active Protocol: Document 09/05/20 14:26 [facility] (Rec: 09/05/20 16:26 [facility] [id number]) Knee Goniometric Range of Motion Knee Left Flexion Active (degrees) 116 Extension Active (degrees) 4 PT-OP-M Strength Start: 07/25/20 18:05 Freq: Status: Active Protocol: Document 09/05/20 14:26 [facility] (Rec: 09/05/20 16:26 [facility] [id number]) Hip Strength Hip Manual Muscle Testing Right Flexion (L2) 4 Good Extension (S1) 4+ Good+ Abduction 4+ Good+ External Rotation 4+ Good+ Internal Rotation 4+ Good+ Left Flexion (L2) 4 Good Extension (S1) 4 Good Abduction 4 Good External Rotation 4 Good Internal Rotation 4 Good Knee Strength Knee Manual Muscle Testing Right Flexion (S2) 5 Normal Extension (L3) 5 Normal Left Flexion (S2) 4+ Good+ Extension (L3) 4 Good Ankle/Foot Strength Ankle and Foot Manual Muscle Testing Right Dorsiflexion (L4) 5 Normal Plantarflexion (S1) 5 Normal Left Dorsiflexion (L4) 5 Normal Plantarflexion (S1) 5 Normal Comments seated PF testing B PT-OP-Q Treatments Start: 07/25/20 18:05 Freq: Status: Active Protocol: Document 09/17/20 14:35 [facility] (Rec: 09/17/20 15:17 [facility] [id number]) Cardio Equipment Bicycle (Upright) Duration (Minutes) 5 Resistance 4 Seat Position 3 Therapeutic Exercises Standing Exercises stretch Standing Exercise Name stair Side bilateral Reps/Minutes 30 sec squat Standing Exercise Name mini over chair Side bilateral Reps/Minutes 15 hip strength Standing Exercise Name 4 way hip strengthening Side bilateral Equipment Used L2 Reps/Minutes 10 ea Comments flex, abd, add, ext SLS Side bilateral Equipment Used near rail Comments trials in mirror for even pelvis calf raises Standing Exercise Name attempted SL but only able 5 on L then did 20 on step Side bilateral Manual Therapy Treatment Soft Tissue Mobilization scar mob Mobilization Type Myofascial Release,Rolling Intensity/Depth Moderate Body Position Supine Comments flex w/APs thigh Body Location L ITB Mobilization Type Rolling Intensity/Depth Moderate Body Position Hooklying Comments w/APs Joint Mobilizations patella mob Direction sup, inf PT-OP-R Modalities Start: 07/25/20 18:05 Freq: Status: Active Protocol: Document 09/17/20 14:35 [facility] (Rec: 09/17/20 15:17 [facility] [id number]) Hot Pack/Cold Pack Treatment Cold Pack Location L knee Patient Position Supine Treatment Duration (minutes) 10 Patient Tolerance Good PT-OP-T Assessment and Plan Start: 07/25/20 18:05 Freq: Status: Active Protocol: Document 09/17/20 14:35 [facility] (Rec: 09/17/20 15:17 [facility] [id number]) Physical Therapy Assessment Goals walking Short Term Goal (STG) Pt will be able to amb with good gait mechanics w/SPC for at least 15 min without inc pain over 5/10. 08/16/20: progressing: able to walk around house maybe 10 min before needs to sit, might be longer at her mom's house, will pay attention over the weekend. 08/23/20: progressing is able walk neighborhood street using SPC about 10 min before needs go and sit down more uncomfort than pain and able to walk around [employer] 20 min pushing cart BUE before needs sit rest. 08/30/20: Goal met: pt reported able to walk 20-30 min without cane [address] with only occasional brief twinge pain under patella. STG Duration achieved Scientific Informatics Project Leader Goal (LTG) Pt will be able to amb as needed without AD without inc pain greater than 05/09. 09/05-walk around neighborhood / pain 09/07/20: Goal met: was able to walk around neighborhood up down hills while walking her 2 small dogs with pain 1-2/10 more tired. LTG Duration achieved 09/07/20 activities Short Term Goal (STG) Pt will be able to squat down to miner pick objects without increased pain. 08/30/20: Goal met. Pt is able to miner pick cones off floor brief small pain sub patella, gone after manual scar and patell mob. STG Duration achieved Long-Term Goal (LTG) Pt will be able to return to working without inc pain greater than 3/10 LTG Duration 10/07/20 strength Short Term Goal (STG) Pt will be indep w/ HEP 09/07/20: HEP: SLR, seated hs curls Tb #1, sit<>stands, calf raises, eccentric lateral step down, SLS. STG Duration achieved Scientific Informatics Project Leader Goal (LTG) Pt will imrpove LE strength to at least 4+/5 in all planes to show imrpoved stability and strength to return to typical activities. 09/05 progressing LTG Duration 10/07/20 1 Impairment LEFS 22/80 Short Term Goal (STG) Pt will improve LEFS score to 46 to show improvement in functional ability. STG Duration achieved Long-Term Goal (LTG) Pt will improve LEFS score to 60 to show improvement in functional ability. LTG Duration achieved 68/80 Assessment Summary Assessment Pt did well with new strengthening exercises w/most difficulty w/hip ext and abd. She did well with squats but just required some cueing to keep butt back. Physical Therapy Plan Frequency and Duration Frequency of Treatment 2x/Week Duration of Treatment 2 months Plan of Care Start Date 08/07/20 Plan of Care End Date 10/07/20 Next Visit Focus/Plan Next Note Type Treatment Note Next Visit Plan review exericses & con tto progress strength & stability
--- NOTE | 2020-09-20 16:03 | PT.OTN ---
Current Diagnoses Unilateral primary osteoarthritis, left knee (09/20/20) Difficulty in walking, not elsewhere classified (09/20/20) Weakness (09/20/20) Physical Therapy Treatment Note PT-OP-A Visit Information Start: 07/25/20 18:05 Freq: Status: Active Protocol: Document 09/20/20 15:23 [facility] (Rec: 09/20/20 16:03 [facility] [id number]) Out-Patient Physical Therapy Visit Information Visit Information Visit Type Treatment Note Visit Start Time 15:20 Visit Stop Time 16:00 Total Visit Minutes 40 Visit Number 15 Number of YARD PIPE GRADER Visits 0 PT-OP-B Current Condition Start: 07/25/20 18:05 Freq: Status: Active Protocol: Document 08/07/20 16:04 [facility] (Rec: 08/07/20 16:50 [facility] [id number]) Current Condition History of Current Condition Onset Date 08/01/20 Current Complaints L TKA History of Current Condition 08/07-Surgery went well and was able to go home the next day. Has been able to get in/out of bed w/using UEs. Has not showered yet d/t difficulty getting into tub w/shower doors. Pt has been able to get dressed and get socks on herself. It takes her some time, but gets them on. IE:Pt reports pain starting last Apr when she had a pop in the back of her knee and had trouble bearing weight into leg. Pt was off work for a few weeks. Pain has been up and down where someitmes it feels like its getting better and other times can barely move. She has had a couple injections with them helping temporarily only. Now getting L TKA on 08/01/20. Pt got a cane and FWW. Plans to move some things in house so there is more room for her and walker. Her house was origninally made for her mother in law who was handicap. Pt has no XIOMY and is SLH. Pt has tub and normal toilet. 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 Job entails: standing, walking, pushing carts, lifting, and putting stock away. Pt does take care of mother w/Parkinson's who lives on her owna nd can move on her own. Treatment Goals Patient/Caregiver Goals Be able to walk without a limp , be able to bend over and oyster picker something w/o pain, be able return to work PT-OP-C Subjective Start: 07/25/20 18:05 Freq: Status: Active Protocol: Document 09/20/20 15:23 [facility] (Rec: 09/20/20 16:03 [facility] [id number]) OP-PT Subjective Patient Comments Patient Comments Pt reports work has been exhausting and her knee is feeling it. PT-OP-F Manual Assessment Start: 07/25/20 18:05 Freq: Status: Active Protocol: Document 08/07/20 16:04 [facility] (Rec: 08/07/20 16:50 [facility] [id number]) Manual Assessments Soft Tissue Assessment Soft Tissue Mobility Assessment swelling, bruising most ant med and some post in HS & calf PT-OP-G Mobility & Gait Start: 07/25/20 18:05 Freq: Status: Active Protocol: Document 08/07/20 16:04 [facility] (Rec: 08/07/20 16:50 [facility] [id number]) OP Mobility Evaluation Bed Mobility Supine to and from Sit requires self UE assist Transfers Sit to Stand puts leg out in front for sit to stand and uses hands OP Gait Assessment Comments Gait Comments step throught w/FWW w/fwd lean w/WB on LLE PT-OP-K Range of Motion Start: 07/25/20 18:05 Freq: Status: Active Protocol: Document 09/05/20 14:26 [facility] (Rec: 09/05/20 16:26 [facility] [id number]) Knee Goniometric Range of Motion Knee Left Flexion Active (degrees) 116 Extension Active (degrees) 4 PT-OP-M Strength Start: 07/25/20 18:05 Freq: Status: Active Protocol: Document 09/05/20 14:26 [facility] (Rec: 09/05/20 16:26 [facility] [id number]) Hip Strength Hip Manual Muscle Testing Right Flexion (L2) 4 Good Extension (S1) 4+ Good+ Abduction 4+ Good+ External Rotation 4+ Good+ Internal Rotation 4+ Good+ Left Flexion (L2) 4 Good Extension (S1) 4 Good Abduction 4 Good External Rotation 4 Good Internal Rotation 4 Good Knee Strength Knee Manual Muscle Testing Right Flexion (S2) 5 Normal Extension (L3) 5 Normal Left Flexion (S2) 4+ Good+ Extension (L3) 4 Good Ankle/Foot Strength Ankle and Foot Manual Muscle Testing Right Dorsiflexion (L4) 5 Normal Plantarflexion (S1) 5 Normal Left Dorsiflexion (L4) 5 Normal Plantarflexion (S1) 5 Normal Comments seated PF testing B PT-OP-Q Treatments Start: 07/25/20 18:05 Freq: Status: Active Protocol: Document 09/20/20 15:23 [facility] (Rec: 09/20/20 16:03 [facility] [id number]) Cardio Equipment Recumbent Bicycle Duration (Minutes) 6 Resistance 4 Seat Position 4 Therapeutic Exercises Standing Exercises stretch Standing Exercise Name 1. calf stair 2. HS stair 3. flex stair L only Side bilateral Reps/Minutes 30 sec ea squat Standing Exercise Name mini over chair Side bilateral Reps/Minutes 15 hip strength Standing Exercise Name 4 way hip strengthening Side bilateral Equipment Used L2 Reps/Minutes 10 ea Comments flex, abd, add, ext Manual Therapy Treatment Soft Tissue Mobilization scar mob Mobilization Type Myofascial Release,Rolling Intensity/Depth Moderate Body Position Supine Comments flex on tball Joint Mobilizations patella mob Direction sup, inf PT-OP-R Modalities Start: 07/25/20 18:05 Freq: Status: Active Protocol: Document 09/17/20 14:35 [facility] (Rec: 09/17/20 15:17 [facility] [id number]) Hot Pack/Cold Pack Treatment Cold Pack Location L knee Patient Position Supine Treatment Duration (minutes) 10 Patient Tolerance Good PT-OP-T Assessment and Plan Start: 07/25/20 18:05 Freq: Status: Active Protocol: Document 09/20/20 15:23 [facility] (Rec: 09/20/20 16:03 [facility] [id number]) Physical Therapy Assessment Goals walking Short Term Goal (STG) Pt will be able to amb with good gait mechanics w/SPC for at least 15 min without inc pain over 08/06. 08/16/20: progressing: able to walk around house maybe 10 min before needs to sit, might be longer at her mom's house, will pay attention over the weekend. 08/23/20: progressing is able walk neighborhood street using SPC about 10 min before needs go and sit down more uncomfort than pain and able to walk around [employer] 20 min pushing cart BUE before needs sit rest. 6/3/21: Goal met: pt reported able to walk 20-30 min without cane on [address] with only occasional brief twinge pain under patella. STG Duration achieved Security Associate Goal (LTG) Pt will be able to amb as needed without AD without inc pain greater than 2/10. 09/05-walk around neighborhood 2 /10 pain 09/07/20: Goal met: was able to walk around neighborhood up down hills while walking her 2 small dogs with pain 1-2/10 more tired. LTG Duration achieved 09/07/20 activities Short Term Goal (STG) Pt will be able to squat down to oyster picker objects without increased pain. 08/30/20: Goal met. Pt is able to oyster picker cones off floor brief small pain sub patella, gone after manual scar and patell mob. STG Duration achieved Security Associate Goal (LTG) Pt will be able to return to working without inc pain greater than 3/10 LTG Duration 10/07/20 strength Short Term Goal (STG) Pt will be indep w/ HEP 09/07/20: HEP: SLR, seated hs curls Tb #1, sit<>stands, calf raises, eccentric lateral step down, SLS. STG Duration achieved Long-Term Goal (LTG) Pt will imrpove LE strength to at least 4+/5 in all planes to show imrpoved stability and strength to return to typical activities. 09/05 progressing LTG Duration 10/07/20 1 Impairment LEFS 22/80 Short Term Goal (STG) Pt will improve LEFS score to 46 to show improvement in functional ability. STG Duration achieved Security Associate Goal (LTG) Pt will improve LEFS score to 60 to show improvement in functional ability. LTG Duration achieved 68/80 Assessment Summary Assessment Pt did well with exercises and had 119 deg ROM. She required min cueing with standing exercises but still had difficulty with squats for good form Physical Therapy Plan Frequency and Duration Frequency of Treatment 2x/Week Duration of Treatment 2 months Plan of Care Start Date 08/07/20 Plan of Care End Date 10/07/20 Next Visit Focus/Plan Next Note Type Treatment Note Next Visit Plan work on gait mechanics
--- NOTE | 2020-09-24 15:53 | PT.OTN ---
Current Diagnoses Unilateral primary osteoarthritis, left knee (09/24/20) Difficulty in walking, not elsewhere classified (09/24/20) Weakness (09/24/20) Physical Therapy Treatment Note PT-OP-A Visit Information Start: 07/25/20 18:05 Freq: Status: Active Protocol: Document 09/24/20 14:36 [facility] (Rec: 09/24/20 15:52 [facility] [id number]) Out-Patient Physical Therapy Visit Information Visit Information Visit Type Treatment Note Visit Start Time 14:33 Visit Stop Time 15:15 Total Visit Minutes 42 Visit Number 16 Number of CUSTOMER SOLUTIONS COORDINATOR Visits 0 PT-OP-B Current Condition Start: 07/25/20 18:05 Freq: Status: Active Protocol: Document 08/07/20 16:04 [facility] (Rec: 08/07/20 16:50 [facility] [id number]) Current Condition History of Current Condition Onset Date 08/01/20 Current Complaints L TKA History of Current Condition 08/07-Surgery went well and was able to go home the next day. Has been able to get in/out of bed w/using UEs. Has not showered yet d/t difficulty getting into tub w/shower doors. Pt has been able to get dressed and get socks on herself. It takes her some time, but gets them on. IE:Pt reports pain starting last Apr when she had a pop in the back of her knee and had trouble bearing weight into leg. Pt was off work for a few weeks. Pain has been up and down where someitmes it feels like its getting better and other times can barely move. She has had a couple injections with them helping temporarily only. Now getting L TKA on 08/01/20. Pt got a cane and FWW. Plans to move some things in house so there is more room for her and walker. Her house was origninally made for her mother in law who was handicap. Pt has no XIOMY and is SLH. Pt has tub and normal toilet. 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 Job entails: standing, walking, pushing carts, lifting, and putting stock away. Pt does take care of mother w/Parkinson's who lives on her owna nd can move on her own. Treatment Goals Patient/Caregiver Goals Be able to walk without a limp , be able to bend over and peanut picker something w/o pain, be able return to work PT-OP-C Subjective Start: 07/25/20 18:05 Freq: Status: Active Protocol: Document 09/24/20 14:36 [facility] (Rec: 09/24/20 15:52 [facility] [id number]) OP-PT Subjective Patient Comments Patient Comments Pt reports she is going later in the day before her back starts to hurt. Every once in a while she turns the wrong direction and get some pain ( brief). reports quad soreness after last session Patient Reported Progress Improving PT-OP-F Manual Assessment Start: 07/25/20 18:05 Freq: Status: Active Protocol: Document 08/07/20 16:04 [facility] (Rec: 08/07/20 16:50 [facility] [id number]) Manual Assessments Soft Tissue Assessment Soft Tissue Mobility Assessment swelling, bruising most ant med and some post in HS & calf PT-OP-G Mobility & Gait Start: 07/25/20 18:05 Freq: Status: Active Protocol: Document 08/07/20 16:04 [facility] (Rec: 08/07/20 16:50 [facility] [id number]) OP Mobility Evaluation Bed Mobility Supine to and from Sit requires self UE assist Transfers Sit to Stand puts leg out in front for sit to stand and uses hands OP Gait Assessment Comments Gait Comments step throught w/FWW w/fwd lean w/WB on LLE PT-OP-K Range of Motion Start: 07/25/20 18:05 Freq: Status: Active Protocol: Document 09/05/20 14:26 [facility] (Rec: 09/05/20 16:26 [facility] [id number]) Knee Goniometric Range of Motion Knee Left Flexion Active (degrees) 116 Extension Active (degrees) 4 PT-OP-M Strength Start: 07/25/20 18:05 Freq: Status: Active Protocol: Document 09/05/20 14:26 [facility] (Rec: 09/05/20 16:26 [facility] [id number]) Hip Strength Hip Manual Muscle Testing Right Flexion (L2) 4 Good Extension (S1) 4+ Good+ Abduction 4+ Good+ External Rotation 4+ Good+ Internal Rotation 4+ Good+ Left Flexion (L2) 4 Good Extension (S1) 4 Good Abduction 4 Good External Rotation 4 Good Internal Rotation 4 Good Knee Strength Knee Manual Muscle Testing Right Flexion (S2) 5 Normal Extension (L3) 5 Normal Left Flexion (S2) 4+ Good+ Extension (L3) 4 Good Ankle/Foot Strength Ankle and Foot Manual Muscle Testing Right Dorsiflexion (L4) 5 Normal Plantarflexion (S1) 5 Normal Left Dorsiflexion (L4) 5 Normal Plantarflexion (S1) 5 Normal Comments seated PF testing B PT-OP-Q Treatments Start: 07/25/20 18:05 Freq: Status: Active Protocol: Document 09/24/20 14:36 [facility] (Rec: 09/24/20 15:52 [facility] [id number]) Cardio Equipment Recumbent Bicycle Duration (Minutes) 6 Resistance 4 Seat Position 4 Therapeutic Exercises Standing Exercises stretch Standing Exercise Name 1. calf stair 2. HS stair 3. flex stair L only Side bilateral Reps/Minutes 30 sec ea squat Standing Exercise Name mini over chair Side bilateral Reps/Minutes 10 Comments about 60 deg hip strength Standing Exercise Name 4 way hip strengthening Side bilateral Equipment Used L2 Reps/Minutes 10 ea Comments flex, abd, add, ext Gait Training Gait Activity wt shifts Description fwd B in mirror progressed to step through walking Description in mirror w/focus on push off Manual Therapy Treatment Soft Tissue Mobilization scar mob Mobilization Type Myofascial Release,Rolling Intensity/Depth Moderate Body Position Supine Comments w/knee flex Joint Mobilizations patella mob Direction sup, inf PT-OP-R Modalities Start: 07/25/20 18:05 Freq: Status: Active Protocol: Document 09/17/20 14:35 [facility] (Rec: 09/17/20 15:17 [facility] [id number]) Hot Pack/Cold Pack Treatment Cold Pack Location L knee Patient Position Supine Treatment Duration (minutes) 10 Patient Tolerance Good PT-OP-T Assessment and Plan Start: 07/25/20 18:05 Freq: Status: Active Protocol: Document 09/24/20 14:36 [facility] (Rec: 09/24/20 15:52 [facility] [id number]) Physical Therapy Assessment Goals walking Short Term Goal (STG) Pt will be able to amb with good gait mechanics w/SPC for at least 15 min without inc pain over 08/06. 08/16/20: progressing: able to walk around house maybe 10 min before needs to sit, might be longer at her mom's house, will pay attention over the weekend. 08/23/20: progressing is able walk neighborhood street using SPC about 10 min before needs go and sit down more uncomfort than pain and [facility] BUE before needs sit rest. 08/30/20: Goal met: pt reported able to walk 20-30 min without cane on [address] with only occasional brief twinge pain under patella. STG Duration achieved Business Account Manager Goal (LTG) Pt will be able to amb as needed without AD without inc pain greater than 2/10. 09/05-walk around neighborhood 2 /10 pain 09/07/20: Goal met: was able to walk around neighborhood up down hills while walking her 2 small dogs with pain 1-2/10 more tired. LTG Duration achieved 09/07/20 activities Short Term Goal (STG) Pt will be able to squat down to peanut picker objects without increased pain. 08/30/20: Goal met. Pt is able to peanut picker cones off floor brief small pain sub patella, gone after manual scar and patell mob. STG Duration achieved Detention Goal (LTG) Pt will be able to return to working without inc pain greater than 3/10 LTG Duration 10/07/20 strength Short Term Goal (STG) Pt will be indep w/ HEP 09/07/20: HEP: SLR, seated hs curls Tb #1, sit<>stands, calf raises, eccentric lateral step down, SLS. STG Duration achieved Detention Goal (LTG) Pt will imrpove LE strength to at least 4+/5 in all planes to show imrpoved stability and strength to return to typical activities. 09/05 progressing LTG Duration 10/07/20 1 Impairment LEFS 22/80 Short Term Goal (STG) Pt will improve LEFS score to 46 to show improvement in functional ability. STG Duration achieved Detention Goal (LTG) Pt will improve LEFS score to 60 to show improvement in functional ability. LTG Duration achieved 68/80 Assessment Summary Assessment Pt required less cueing with exercises today and had improved range during squats. Scar tissue mobility is improving with soft tissue work which improves ability for flex. Physical Therapy Plan Frequency and Duration Frequency of Treatment 2x/Week Duration of Treatment 2 months Plan of Care Start Date 08/07/20 Plan of Care End Date 10/07/20 Next Visit Focus/Plan Next Note Type Treatment Note Next Visit Plan cont to work on LE strength & knee ROM
--- NOTE | 2020-09-27 18:40 | PT.OTN ---
Current Diagnoses Unilateral primary osteoarthritis, left knee (09/27/20) Difficulty in walking, not elsewhere classified (09/27/20) Weakness (09/27/20) Physical Therapy Treatment Note PT-OP-A Visit Information Start: 07/25/20 18:05 Freq: Status: Active Protocol: Document 09/27/20 14:04 [facility] (Rec: 09/27/20 14:23 [facility] [id number]) Out-Patient Physical Therapy Visit Information Visit Information Visit Type Treatment Note Visit Start Time 13:51 Visit Stop Time 14:30 Total Visit Minutes 39 Visit Number 17 Number of EDGE BONDER Visits 0 PT-OP-B Current Condition Start: 07/25/20 18:05 Freq: Status: Active Protocol: Document 08/07/20 16:04 [facility] (Rec: 08/07/20 16:50 [facility] [id number]) Current Condition History of Current Condition Onset Date 08/01/20 Current Complaints L TKA History of Current Condition 08/07-Surgery went well and was able to go home the next day. Has been able to get in/out of bed w/using UEs. Has not showered yet d/t difficulty getting into tub w/shower doors. Pt has been able to get dressed and get socks on herself. It takes her some time, but gets them on. IE:Pt reports pain starting last Apr when she had a pop in the back of her knee and had trouble bearing weight into leg. Pt was off work for a few weeks. Pain has been up and down where someitmes it feels like its getting better and other times can barely move. She has had a couple injections with them helping temporarily only. Now getting L TKA on 08/01/20. Pt got a cane and FWW. Plans to move some things in house so there is more room for her and walker. Her house was origninally made for her mother in law who was handicap. Pt has no XIOMY and is SLH. Pt has tub and normal toilet. 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 Job entails: standing, walking, pushing carts, lifting, and putting stock away. Pt does take care of mother w/Parkinson's who lives on her owna nd can move on her own. Treatment Goals Patient/Caregiver Goals Be able to walk without a limp , be able to bend over and apple picker something w/o pain, be able return to work PT-OP-C Subjective Start: 07/25/20 18:05 Freq: Status: Active Protocol: Document 09/27/20 14:04 [facility] (Rec: 09/27/20 14:23 [facility] [id number]) OP-PT Subjective Patient Comments Patient Comments Pt reports less pain at work now. Was able to get down into [place] and get back up without too much difficulty. Notes she mowed her mom's grass. Can't think of anything she is avoiding. Patient Reported Progress Improving PT-OP-F Manual Assessment Start: 07/25/20 18:05 Freq: Status: Active Protocol: Document 08/07/20 16:04 [facility] (Rec: 08/07/20 16:50 [facility] [id number]) Manual Assessments Soft Tissue Assessment Soft Tissue Mobility Assessment swelling, bruising most ant med and some post in HS & calf PT-OP-G Mobility & Gait Start: 07/25/20 18:05 Freq: Status: Active Protocol: Document 08/07/20 16:04 [facility] (Rec: 08/07/20 16:50 [facility] [id number]) OP Mobility Evaluation Bed Mobility Supine to and from Sit requires self UE assist Transfers Sit to Stand puts leg out in front for sit to stand and uses hands OP Gait Assessment Comments Gait Comments step throught w/FWW w/fwd lean w/WB on LLE PT-OP-K Range of Motion Start: 07/25/20 18:05 Freq: Status: Active Protocol: Document 09/27/20 14:04 [facility] (Rec: 09/27/20 14:26 [facility] [id number]) Knee Goniometric Range of Motion Knee Left Flexion Active (degrees) 121 Extension Active (degrees) 0 PT-OP-M Strength Start: 07/25/20 18:05 Freq: Status: Active Protocol: Document 09/27/20 14:04 [facility] (Rec: 09/27/20 14:26 [facility] [id number]) Hip Strength Hip Manual Muscle Testing Right Flexion (L2) 5 Normal Extension (S1) 5 Normal Abduction 5 Normal External Rotation 5 Normal Internal Rotation 5 Normal Left Flexion (L2) 5 Normal Extension (S1) 5 Normal Abduction 5 Normal External Rotation 4+ Good+ Internal Rotation 5 Normal Knee Strength Knee Manual Muscle Testing Right Flexion (S2) 5 Normal Extension (L3) 5 Normal Left Flexion (S2) 5 Normal Extension (L3) 5 Normal Ankle/Foot Strength Ankle and Foot Manual Muscle Testing Right Dorsiflexion (L4) 5 Normal Plantarflexion (S1) 5 Normal Left Dorsiflexion (L4) 5 Normal Plantarflexion (S1) 5 Normal Comments seated PF testing B PT-OP-Q Treatments Start: 07/25/20 18:05 Freq: Status: Active Protocol: Document 09/27/20 14:04 [facility] (Rec: 09/27/20 14:23 [facility] [id number]) Cardio Equipment Recumbent Bicycle Duration (Minutes) 6 Resistance 6 Seat Position 4 Gym Equipment Shuttle Balance red Details Fwd: WBOS, NBOS, stagger side: WBOS & NBOS Comments 1. wt shift f/b WBOS Therapeutic Exercises Supine Exercises heel slides Side left Reps/Minutes 10 Sidelying Exercises clamshell Side left Reps/Minutes 15 Standing Exercises step down Standing Exercise Name 5in Side bilateral Reps/Minutes 10 step ups Standing Exercise Name 6in Side bilateral Reps/Minutes 10 squat Standing Exercise Name sit to stand Reps/Minutes 10 SLS Standing Exercise Name trials Side bilateral calf raises Side bilateral Reps/Minutes 20 Self-Care/Home Management Treatment Education Other Education edu on HEP and to cont w/ exercises for strength, balance and ROM PT-OP-R Modalities Start: 07/25/20 18:05 Freq: Status: Active Protocol: Document 09/17/20 14:35 [facility] (Rec: 09/17/20 15:17 [facility] [id number]) Hot Pack/Cold Pack Treatment Cold Pack Location L knee Patient Position Supine Treatment Duration (minutes) 10 Patient Tolerance Good PT-OP-T Assessment and Plan Start: 07/25/20 18:05 Freq: Status: Active Protocol: Document 09/27/20 14:04 [facility] (Rec: 09/27/20 14:23 [facility] [id number]) Physical Therapy Assessment Goals walking Short Term Goal (STG) Pt will be able to amb with good gait mechanics w/SPC for at least 15 min without inc pain over 08/06. 08/16/20: progressing: able to walk around house maybe 10 min before needs to sit, might be longer at her mom's house, will pay attention over the weekend. 08/23/20: progressing is able walk neighborhood street using SPC about 10 min before needs go and sit down more uncomfort than pain and [facility] BUE before needs sit rest. 08/30/20: Goal met: pt reported able to walk 20-30 min without cane on [address] with only occasional brief twinge pain under patella. STG Duration achieved Jail Goal (LTG) Pt will be able to amb as needed without AD without inc pain greater than 2/10. 09/05-walk around neighborhood 2 /10 pain 09/07/20: Goal met: was able to walk around neighborhood up down hills while walking her 2 small dogs with pain 1-2/10 more tired. LTG Duration achieved 09/07/20 activities Short Term Goal (STG) Pt will be able to squat down to apple picker objects without increased pain. 08/30/20: Goal met. Pt is able to apple picker cones off floor brief small pain sub patella, gone after manual scar and patell mob. STG Duration achieved Jail Goal (LTG) Pt will be able to return to working without inc pain greater than 3/10 LTG Duration achieved strength Short Term Goal (STG) Pt will be indep w/ HEP 09/07/20: HEP: SLR, seated hs curls Tb #1, sit<>stands, calf raises, eccentric lateral step down, SLS. STG Duration achieved Trend Investigator Goal (LTG) Pt will imrpove LE strength to at least 4+/5 in all planes to show imrpoved stability and strength to return to typical activities. 09/05 progressing LTG Duration achieved 1 Impairment LEFS 22/80 Short Term Goal (STG) Pt will improve LEFS score to 46 to show improvement in functional ability. STG Duration achieved Jail Goal (LTG) Pt will improve LEFS score to 60 to show improvement in functional ability. LTG Duration achieved 68/80 Assessment Summary Assessment pt has met all goals at this time and has no issues with any functional activities. She is reproting doing all typical activities required for work and home activties with pain no greater than 1/10 . ROM is good and just encouraged to cont to wrok on control for decent w/stairs and exercises to cont strengthen. DC at this time. Physical Therapy Plan Discharge Physical Therapy Discharge Reasons Goals Met
== END 2020-09-27 14:46 ==
LOC: PHYS 13:45
PROVIDERS: Family Provider Physician Assistant; PCP Physician Assistant; Referring Provider Orthopaedic Surgery Adult Reconstructive Orthopaedic Surgery; Visit Provider Orthopaedic Surgery Adult Reconstructive Orthopaedic Surgery
DX: M17.12 Unilateral primary osteoarthritis, left knee (principal); R53.1 Weakness; R26.2 Difficulty in walking, not elsewhere classified
CPT/HCPCS: 97010; 97014; 97110; 97112; 97116; 97140; 97162; 97164; 97530; 97535; G0283

== ENCOUNTER → 2021-01-03 11:39 | Outpatient (CLI) | payer OTHER, SELFPAY ==
[2020-08-01 11:58] VITALS: BMI 41.5
== END ==
PROVIDERS: Family Provider Physician Assistant; PCP Physician Assistant; Referring Provider Internal Medicine; Visit Provider Internal Medicine
DX: Z23 Encounter for immunization (principal)
CPT/HCPCS: 90471; 90686

== ENCOUNTER → 2021-12-24 09:00 | Outpatient (CLI) | payer OTHER, SELFPAY ==
[2020-08-01 11:58] VITALS: BMI 41.5
== END ==
PROVIDERS: Family Provider Physician Assistant; PCP Physician Assistant; Referring Provider Internal Medicine; Visit Provider Internal Medicine
DX: Z23 Encounter for immunization (principal)
CPT/HCPCS: 90471; 90686

== ENCOUNTER → 2022-04-30 15:28 | Outpatient (CLI) | payer OTHER, SELFPAY ==
[2020-08-01 11:58] VITALS: BMI 41.5
[2022-04-30 15:41] LABS: Hematocrit 41.1 % (36-46); Hemoglobin 14.1 g/dL (12.0-16.0); Mean Corpuscular HGB Conc 34.2 % (30-36); Mean Corpuscular Hemoglobin 30.2 PG (26-34); Mean Corpuscular Volume 88.1 fL (80-100); Platelet Count 197 X10^3/uL (150-400); Red Blood Cell Count 4.67 X10^6/uL (4.0-5.2); Red Cell Distribution Width 13.1 % (11.6-14.8); White Blood Cell Count 9.6 X10^3/uL (4.5-11.0)
[2022-04-30 16:57] LABS: Alanine Aminotransferase 35 IU/L (<35); Albumin 4.4 g/dL (3.5-5.0); Albumin Globulin Ratio 1.5 (1.0-2.8); Alkaline Phosphatase 92 U/L (38-126); Aspartate Aminotransferase 36 IU/L (14-36); Bilirubin Total 0.6 mg/dL (0.2-1.3); Blood Urea Nitrogen 26 mg/dL (7-17); Calcium 9.5 mg/dL (8.4-10.2); Carbon Dioxide 28 mmol/L (22-32); Chloride 106 mmol/L (98-107); Cholesterol 177 mg/dL (140-199); Estimated Glomerular Filt Rate > 60 mL/min (>60); HDL Cholesterol 58 mg/dL (40-60); HEMOLYSIS 18 (0-50); LDL Cholesterol Calculated 80 mg/dL (<100); Potassium 4.2 mmol/L (3.4-5.1); Sodium 139 mmol/L (137-145); Total Protein 7.4 g/dL (6.3-8.2); Triglycerides 193 mg/dL (35-150)
[2022-04-30 16:59] LABS: Glucose 129 mg/dL (80-110)
[2022-04-30 17:28] LABS: Thyroid Stimulating Hormone 2.27 uIU/mL (0.47-4.68)
== END ==
PROVIDERS: Family Provider Physician Assistant; PCP Internal Medicine; Referring Provider Internal Medicine; Visit Provider Internal Medicine
DX: E78.2 Mixed hyperlipidemia (principal); G43.009 Migraine without aura, not intractable, without status migrainosus; K21.9 Gastro-esophageal reflux disease without esophagitis; M15.9 Polyosteoarthritis, unspecified
CPT/HCPCS: 36415; 80053; 80061; 84443; 85027